=== PATIENT | female | born 2000 | race Hispanic/Latino ===

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

== ENCOUNTER 2019-03-29 13:02 | Emergency (ER) | payer SELFPAY ==
[2019-03-29 13:39] LABS: Absolute Lymphocytes (CBC) 1.6 K/uL (0.7-4.9); Absolute Monocytes 0.7 K/uL (0.1-1.3); Absolute Neutrophil 15.3 K/uL (1.8-8.0); Basophils % 0.3 % (0-1.3); Eosinophils % 0.1 % (0-4.4); Hematocrit 42.6 % (36.0-45.0); Lymphocytes % 8.9 % (15.3-44.8); RBC Red Blood Cell Count 5.41 M/uL (3.86-4.86)
[2019-03-29] MEDS ORDERED: NA CHLORIDE 0.9% 1,000 ML ONE ×2 (13:46→14:06)
[2019-03-29] MEDS ORDERED: ONDANSETRON 4 MG/2 ML VIAL ONE ×2 (13:46→15:41)
[2019-03-29 14:00] LABS: ALT/SGPT 22 U/L (12-78); AST/SGOT 14 U/L (15-37); Albumin 3.9 g/dL (3.4-5.0); Alkaline Phosphatase 118 U/L (45-117); BUN Blood Urea Nitrogen 15 mg/dL (7-18); Bicarbonate 22 mmol/L (21-32); Bilirubin Direct < 0.1 mg/dL (0-0.2); Bilirubin Total 0.3 mg/dL (0.2-1.0); Glucose Level 123 mg/dL (74-106); Lipase 129 U/L (73-393); Potassium 3.5 mmol/L (3.5-5.1); Protein, Total 9.1 g/dL (6.4-8.2); Sodium Level 140 mmol/L (136-145)
[2019-03-29 14:11] LABS: Blood Morphology Comment NOT SEEN (NOT SEEN); Platelet Estimate INCR; Urine White Blood Cell Casts OK
--- NOTE | 2019-03-29 15:01 | EDPHYS ---
Physician Documentation [facility] Name: Lindsay Hidalgo Age: 18 yrs Sex: Female : 2000 Arrival Date: 03/29/2019 Time: 13:04 Bed 8 Private MD: ED Physician Brian Coffman HPI: 03/29 13:36 This 18 yrs old Female presents to ER via Ambulatory with complaints of jake Vomiting, Hyperventilation. 13:36 The patient presents to the emergency department with nausea, vomiting. Onset: The jake symptoms/episode began/occurred 2 day(s) ago. Possible causes: unknown. The symptoms are aggravated by movement, food , The symptoms are alleviated by nothing. remaining still. Associated signs and symptoms: Pertinent positives: nausea, vomiting. Severity of symptoms: At their worst the symptoms were mild in the emergency department the symptoms are unchanged. The patient has not experienced similar symptoms in the past. 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 - Social history:: Smoking status: Patient/guardian denies using tobacco, Patient uses street drugs, marijuana, daily. - Ebola Screening: : Patient denies exposure to infectious person Patient denies travel to an Ebola-affected area in the 21 days before illness onset. - Family history:: not pertinent. ROS: 13:36 Constitutional: Negative for fever, chills, and weight loss, Eyes: Negative for injury, jake pain, redness, and discharge, ENT: Negative for injury, pain, and discharge, Neck: Negative for injury, pain, and swelling, Cardiovascular: Negative for chest pain, palpitations, and edema, Respiratory: Negative for shortness of breath, cough, wheezing, and pleuritic chest pain, Back: Negative for injury and pain, : Negative for injury, bleeding, discharge, and swelling, MS/Extremity: Negative for injury and deformity, Skin: Negative for injury, rash, and discoloration, Neuro: Negative for headache, weakness, numbness, tingling, and seizure, Psych: Negative for depression, anxiety, suicide ideation, homicidal ideation, and hallucinations, Allergy/Immunology: Negative for hives, rash, and allergies, Endocrine: Negative for neck swelling, polydipsia, polyuria, polyphagia, and marked weight changes, Hematologic/Lymphatic: Negative for swollen nodes, abnormal bleeding, and unusual bruising. 13:36 Abdomen/GI: Positive for abdominal pain, nausea and vomiting. Exam: 13:36 Constitutional: This is a well developed, well nourished patient who is awake, alert, jake and in no acute distress. Head/Face: Normocephalic, atraumatic. Eyes: Pupils equal round and reactive to light, extra-ocular motions intact. Lids and lashes normal. Conjunctiva and sclera are non-icteric and not injected. Cornea within normal limits. Periorbital areas with no swelling, redness, or edema. ENT: Nares patent. No nasal discharge, no septal abnormalities noted. Tympanic membranes are normal and external auditory canals are clear. Oropharynx with no redness, swelling, or masses, exudates, or evidence of obstruction, uvula midline. Mucous membranes moist. Neck: Trachea midline, no thyromegaly or masses palpated, and no cervical lymphadenopathy. Supple, full range of motion without nuchal rigidity, or vertebral point tenderness. No Meningismus. Chest/axilla: Normal chest wall appearance and motion. Nontender with no deformity. No lesions are appreciated. Cardiovascular: Regular rate and rhythm with a normal S1 and S2. No gallops, murmurs, or rubs. Normal PMI, no JVD. No pulse deficits. Respiratory: Lungs have equal breath sounds bilaterally, clear to auscultation and percussion. No rales, rhonchi or wheezes noted. No increased work of breathing, no retractions or nasal flaring. Abdomen/GI: Soft, non-tender, with normal bowel sounds. No distension or tympany. No guarding or rebound. No evidence of tenderness throughout. Back: No spinal tenderness. No costovertebral tenderness. Full range of motion. Skin: Warm, dry with normal turgor. Normal color with no rashes, no lesions, and no evidence of cellulitis. MS/ Extremity: Pulses equal, no cyanosis. Neurovascular intact. Full, normal range of motion. Neuro: Awake and alert, GCS 15, oriented to person, place, time, and situation. Cranial nerves II-XII grossly intact. Motor strength 5/5 in all extremities. Sensory grossly intact. Cerebellar exam normal. Normal gait. Psych: Awake, alert, with orientation to person, place and time. Behavior, mood, and affect are within normal limits. 13:50 Musculoskeletal/extremity: DVT Exam: No signs of deep vein thrombosis. no pain, no jake swelling, no tenderness, negative Homans' sign noted on exam, no appreciated bluish discoloration, no erythema, no increased warmth. 15:38 Abdomen/GI: Inspection: abdomen appears normal, Bowel sounds: normal, Palpation: [facility] abdomen is soft and non-tender, nontender, Liver: no appreciated palpable abnormalities, Hernia: not appreciated. Vital Signs: 13:08 BP 154 / 88; Pulse 110; Resp 30; Temp 97.2(TE); Pulse Ox 100% ; Weight 99.79 kg; Height ss 5 ft. 0 in. (152.40 cm); Pain 8/10; 13:43 Pulse 98; Resp 20; Pulse Ox 97% ; sv 13:57 BP 116 / 46; Pulse 89; Resp 20; Pulse Ox 100% on R/A; sv 15:30 Temp 98.0(O); ss 13:08 Body Mass Index 42.97 (99.79 kg, 152.40 cm) ss MDM: 13:13 Patient medically screened. [facility] 13:39 Data reviewed: vital signs, nurses notes, lab test result(s), EKG. [facility] 03/29 13:18 Order name: Basic Metabolic Panel; Complete Time: 14:20 03/29 13:18 Order name: CBC with Diff; Complete Time: 14:20 03/29 13:18 Order name: Creatinine for Radiology; Complete Time: 14:20 03/29 13:18 Order name: Hepatic Function; Complete Time: 14:20 03/29 13:18 Order name: Lipase; Complete Time: 14:20 03/29 13:36 Order name: Urine Culture [facility] 03/29 13:44 Order name: CBC Smear Scan; Complete Time: 14:20 EDTN 03/29 15:05 Order name: Urine Dipstick--Ancillary (enter results) 03/29 15:05 Order name: Urine --Ancillary (enter results) 03/29 15:06 Order name: Urine Dipstick-Ancillary; Complete Time: 15:39 EDMS 03/29 15:06 Order name: Urine --Ancillary; Complete Time: 15:39 EDMS 03/29 13:18 Order name: IV Saline Lock; Complete Time: 13:35 sv 03/29 13:18 Order name: Labs collected and sent; Complete Time: 13:35 sv 03/29 13:36 Order name: Urine Dipstick-Ancillary (obtain specimen); Complete Time: 14:51 jake 03/29 13:36 Order name: Urine Test (obtain specimen); Complete Time: 14:51 [facility] Administered Medications: 13:34 Drug: NS 0.9% 1000 ml Route: IV; Rate: 1000 ml; Site: left antecubital; sv 14:30 Follow up: Response: No adverse reaction; IV Status: Completed infusion; IV Intake: sv 1000ml 13:35 Drug: Zofran 4 mg Route: IVP; Site: left antecubital; sv 14:00 Follow up: Response: No adverse reaction; Nausea is decreased sv 13:57 Drug: NS 0.9% 1000 ml Route: IV; Rate: 1 bolus; Site: left antecubital; sv 15:00 Follow up: Response: No adverse reaction; IV Status: Completed infusion; IV Intake: sv 1000ml 15:21 Not Given (given per pharmacy protocol): Rocephin - (cefTRIAXone) 1 grams IVPB once ss over 30 mins; (mix in 50 mL NS) 15:21 Drug: Rocephin 1 grams Route: IV; Rate: calculated rate; Site: left antecubital; ss 15:30 Follow up: IV Status: Completed infusion ss 15:30 Drug: Zofran 4 mg Route: IVP; Site: left antecubital; ss 15:56 Follow up: Response: No adverse reaction; Marked relief of symptoms; Nausea is decreasedsv 15:55 Not Given (pt not nauseated at this time, zofran worked): Phenergan 12.5 mg IVP once sv Disposition: 03/29/19 15:01 Discharged to Home. Impression: Vomiting, Hyperventilation, Elevated white blood cell count, Urinary tract infection, site not specified. - Condition is Stable. - Discharge Instructions: Hyperventilation, Nausea and Vomiting, Adult, Nausea and Vomiting, Adult, [id number]. - Prescriptions for Bentyl 20 mg Oral Tablet - take 1 tablet by ORAL route every 6 hours As needed; 20 tablet. Pepcid 20 mg Oral Tablet - take 1 tablet by ORAL route every 12 hours for 10 days; 20 tablet. Zofran 4 mg Oral Tablet - take 1 tablet by ORAL route every 12 hours As needed; 20 tablet. promethazine 25 mg Oral Tablet - take 1 tablet by ORAL route every 6 hours As needed; 20 tablet. Cipro 500 mg Oral Tablet - take 1 tablet by ORAL route every 12 hours for 7 days; 14 tablet. - Medication Reconciliation Form, Thank You Letter, Antibiotic Education, Prescription Opioid Use form. - Family Work Release (03/29/19 16:07). sv - Follow up: Private Physician; When: 2 - 3 days; Reason: Recheck today's complaints, Continuance of care, Re-evaluation by your physician. - Problem is new. - Symptoms have improved. Signatures: Dispatcher [employer] Natty Hess RN RN sv Anderson, Corey, MD MD cha Smirch, Shelby, RN RN ss Corrections: (The following items were deleted from the chart) 15:58 15:01 03/29/2019 15:01 Discharged to Home. Impression: Vomiting; Hyperventilation; sv Elevated white blood cell count; Urinary tract infection, site not specified. Condition is Stable. Discharge Instructions: Nausea and Vomiting, Adult, Nausea and Vomiting, Adult, [id number], Hyperventilation. Prescriptions for Bentyl 20 mg Oral Tablet - take 1 tablet by ORAL route every 6 hours As needed; 20 tablet, Pepcid 20 mg Oral Tablet - take 1 tablet by ORAL route every 12 hours for 10 days; 20 tablet, Zofran 4 mg Oral Tablet - take 1 tablet by ORAL route every 12 hours As needed; 20 tablet, promethazine 25 mg Oral Tablet - take 1 tablet by ORAL route every 6 hours As needed; 20 tablet. and Forms are Medication Reconciliation Form, Thank You Letter, Antibiotic Education, Prescription Opioid Use. Follow up: Private Physician; When: 2 - 3 days; Reason: Recheck today's complaints, Continuance of care, Re-evaluation by your physician. Problem is new. Symptoms have improved. jake
--- NOTE | 2019-03-29 15:01 | ER ---
Nurse's Notes [facility] Name: Lindsay Hidalgo Age: 18 yrs Sex: Female : 2000 Arrival Date: 03/29/2019 Time: 13:04 Bed 8 Private MD: Diagnosis: Vomiting;Hyperventilation;Elevated white blood cell count;Urinary tract infection, site not specified Presentation: 03/29 13:05 Presenting complaint: Patient states: "I woke up this morning at 9, I threw up twice ss and I've been hyperventilating.". Transition of care: patient was not received from another setting of care. Onset of symptoms was March 29, 2019. Risk Assessment: Do you want to hurt yourself or someone else? Patient reports no desire to harm self or others. Initial Sepsis Screen: Does the patient meet any 2 criteria? RR > 20 per min. HR > 90 bpm. Yes Does the patient have a suspected source of infection? No. Patient's initial sepsis screen is negative. Care prior to arrival: None. 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 - Social history:: Smoking status: Patient/guardian denies using tobacco, Patient uses street drugs, marijuana, daily. - Ebola Screening: : Patient denies exposure to infectious person Patient denies travel to an Ebola-affected area in the 21 days before illness onset. - Family history:: not pertinent. Screenin:20 Abuse screen: Denies threats or abuse. Denies injuries from another. Nutritional sv screening: No deficits noted. Tuberculosis screening: No symptoms or risk factors identified. Fall Risk None identified. Assessment: 13:15 General: Appears in no apparent distress. uncomfortable, well developed, Behavior is sv cooperative, anxious. Pain: Denies pain. Neuro: Level of Consciousness is awake, alert, obeys commands, Oriented to person, place, time, situation, Moves all extremities. Full function Gait is steady, Speech is normal. Cardiovascular: Patient's skin is warm and dry. Pulses are 3+ in right radial artery and left radial artery. Respiratory: Airway is patent Respiratory effort is shallow, Respiratory pattern is symmetrical, hyperventilation Breath sounds are clear bilaterally. GI: Abdomen is obese, Pt is actively vomiting bile, Reports nausea, vomiting. Derm: Skin is pink, warm \\T\\ dry. 13:57 Reassessment: Patient appears in no apparent distress at this time. No changes from sv previously documented assessment. Patient and/or family updated on plan of care and expected duration. Pain level reassessed. Patient is alert, oriented x 3, equal unlabored respirations, skin warm/dry/pink. 15:10 Reassessment: Patient appears in no apparent distress at this time. No changes from sv previously documented assessment. Patient and/or family updated on plan of care and expected duration. Pain level reassessed. Patient is alert, oriented x 3, equal unlabored respirations, skin warm/dry/pink. 15:25 Reassessment: Pt reports that her nausea has come back. Dr. Coffman notified. Juan David ordered. 15:57 Reassessment: Patient appears in no apparent distress at this time. Patient and/or sv family updated on plan of care and expected duration. Pain level reassessed. Patient is alert, oriented x 3, equal unlabored respirations, skin warm/dry/pink. Patient states feeling better. Patient states symptoms have improved. Vital Signs: 13:08 BP 154 / 88; Pulse 110; Resp 30; Temp 97.2(TE); Pulse Ox 100% ; Weight 99.79 kg; Height 5 ft. 0 in. (152.40 cm); Pain 8/10; 13:43 Pulse 98; Resp 20; Pulse Ox 97% ; sv 13:57 BP 116 / 46; Pulse 89; Resp 20; Pulse Ox 100% on R/A; sv 15:30 Temp 98.0(O); ss 13:08 Body Mass Index 42.97 (99.79 kg, 152.40 cm) ED Course: 13:04 Patient arrived in ED. tw3 13:07 Triage completed. 13:08 Arm band placed on right wrist. 13:10 Natty Collado RN is Primary Nurse. 13:13 Brian Coffman MD is Attending Physician. [facility] 13:20 Patient has correct armband on for positive identification. Placed in gown. Bed in low sv position. Call light in reach. Adult w/ patient. Pulse ox on. NIBP on. Door closed. Head of bed elevated. 13:20 Initial lab(s) drawn, by me, sent to lab. Inserted saline lock: 20 gauge in left sv antecubital area, using aseptic technique. Blood collected. Flushed left antecubital with 5 ml normal saline. 13:45 CBC Smear Scan Sent. sv 15:10 Urine --Ancillary (enter results) Sent. sv 15:10 Urine Dipstick--Ancillary (enter results) Sent. sv 15:56 No provider procedures requiring assistance completed. IV discontinued, intact, sv bleeding controlled, No redness/swelling at site. Pressure dressing applied. Administered Medications: 13:34 Drug: NS 0.9% 1000 ml Route: IV; Rate: 1000 ml; Site: left antecubital; sv 14:30 Follow up: Response: No adverse reaction; IV Status: Completed infusion; IV Intake: sv 1000ml 13:35 Drug: Zofran 4 mg Route: IVP; Site: left antecubital; sv 14:00 Follow up: Response: No adverse reaction; Nausea is decreased sv 13:57 Drug: NS 0.9% 1000 ml Route: IV; Rate: 1 bolus; Site: left antecubital; sv 15:00 Follow up: Response: No adverse reaction; IV Status: Completed infusion; IV Intake: sv 1000ml 15:21 Not Given (given per pharmacy protocol): Rocephin - (cefTRIAXone) 1 grams IVPB once ss over 30 mins; (mix in 50 mL NS) 15:21 Drug: Rocephin 1 grams Route: IV; Rate: calculated rate; Site: left antecubital; ss 15:30 Follow up: IV Status: Completed infusion ss 15:30 Drug: Zofran 4 mg Route: IVP; Site: left antecubital; ss 15:56 Follow up: Response: No adverse reaction; Marked relief of symptoms; Nausea is decreasedsv 15:55 Not Given (pt not nauseated at this time, zofran worked): Phenergan 12.5 mg IVP once sv Intake: 14:30 IV: 1000ml; Total: 1000ml. sv 15:00 IV: 1000ml; Total: 2000ml. sv Output: 13:37 Gastric: 400ml (Emesis); Total: 400ml. sv Outcome: 15:01 Discharge ordered by . jake 15:56 Discharged to home ambulatory, with family. sv 15:56 Condition: stable 15:56 Discharge instructions given to patient, Instructed on discharge instructions, follow up and referral plans. medication usage, Demonstrated understanding of instructions, follow-up care, medications, Prescriptions given X x5 15:58 Patient left the ED. sv Addendum: 04/02/2019 09:07 Addendum: Culture Results: Positive urine culture. No further action required. Bacteria h b sensitive to prescribed antibiotic. Signatures: Natty Collado, RN RN Brian Montejo MD MD cha Smirch, Shelby, RN RN Divya Estrada, RN RN Penelope Tatum tw3
[2019-03-29] MEDS ORDERED: CEFTRIAXONE/SWI 1gm 1 GM/10 ML SYR ONE (15:30)
[2019-03-29 15:32] LABS: Urine Blood NEGATIVE (NEG); Urine Glucose NEGATIVE (NEG); Urine Protein TRACE (NEG); Urine Specific Gravity 1.015 (1.005-1.030)
== END 2019-03-29 15:58 | disposition home or self-care (01) ==
LOC: ER 13:02
DX: R11.10 Vomiting, unspecified (principal); R06.4 Hyperventilation; N39.0 Urinary tract infection, site not specified; D72.829 Elevated white blood cell count, unspecified
CPT/HCPCS: 36415; 80048; 80076; 81003; 81025; 83690; 85025; 87077; 87086; 87088; 87186; 96361; 96374; 96375; 99284; J0696; J2405; J7030

== ENCOUNTER 2019-04-25 07:28 | Emergency (ER) | payer SELFPAY ==
[2019-04-25 08:13] LABS: Absolute Lymphocytes (CBC) 1.9 K/uL (0.7-4.9); Basophils % 0.8 % (0-1.3); Eosinophils % 0.8 % (0-4.4); Hematocrit 38.6 % (36.0-45.0); Lymphocytes % 19.7 % (15.3-44.8); MPV 6.8 fL (7.6-11.3); Monocytes % 6.4 % (3.3-12.3)
[2019-04-25 08:42] LABS: ALT/SGPT 19 U/L (12-78); AST/SGOT 13 U/L (15-37); Albumin 3.6 g/dL (3.4-5.0); Alkaline Phosphatase 103 U/L (45-117); BUN Blood Urea Nitrogen 13 mg/dL (7-18); Bicarbonate 26 mmol/L (21-32); Bilirubin Direct < 0.1 mg/dL (0-0.2); Bilirubin Total 0.4 mg/dL (0.2-1.0); Glucose Level 93 mg/dL (74-106); Lipase 142 U/L (73-393); Potassium 3.7 mmol/L (3.5-5.1); Protein, Total 8.2 g/dL (6.4-8.2); Sodium Level 140 mmol/L (136-145)
[2019-04-25] MEDS ORDERED: KETOROLAC 30 MG/ML INJ ONE (08:45)
[2019-04-25] MEDS ORDERED: NA CHLORIDE 0.9% 1,000 ML ONE (08:46)
[2019-04-25] MEDS ORDERED: ONDANSETRON 4 MG/2 ML VIAL ONE (08:46)
[2019-04-25 10:03] LABS: Urine Blood NEGATIVE (NEG); Urine Glucose NEGATIVE (NEG); Urine Protein 1+ (NEG)
--- NOTE | 2019-04-25 10:29 | RAD REPORT ---
EXAM DESCRIPTION: CT - Abdomen Pelvis W Contrast - 04/25/2019 10:04 am CLINICAL HISTORY: Abdominal pain. COMPARISON: January 2018 TECHNIQUE: Computed axial tomography of the abdomen and pelvis was obtained. 100 cc Isovue-300 is ad ministered intravenously. Oral contrast was given. All CT scans are performed using dose optimization technique as appropriate and may include automated exposure control or mA/KV adjustment according to patient size. FINDINGS: 3 centimeter enhancing lesion posterior segment right lobe liver unchanged from the prior exam Spleen, pancreas, adrenals and kidneys appear unremarkable. The appendix is normal caliber. There is no evidence of diverticulitis The wall of the left colon appears mildly thickened IMPRESSION: Wall of the left colon appears mildly thickened. This could either be secondary to a mi ld colitis or incomplete distention 3 centimeter hepatic lesion unchanged from January 2018 may represent a hemangioma. A nonemergent ultra sound is recommended
--- NOTE | 2019-04-25 10:37 | ER ---
Nurse's Notes [facility] Name: Lindsay Hidalgo Age: 18 yrs Sex: Female : 2000 Arrival Date: 04/25/2019 Time: 07:30 Bed 15 Private MD: Diagnosis: colitis;Nausea and vomiting Presentation: 04/25 07:35 Presenting complaint: Patient states: Has had nausea and vomiting x 3 days, this rb1 morning she vomited some blood. She is able to keep water down. 07:35 Method Of Arrival: Ambulatory [facility] 07:35 Transition of care: patient was not received from another setting of care. Onset of rb1 symptoms was April 22, 2019. Risk Assessment: Do you want to hurt yourself or someone else? Patient reports no desire to harm self or others. Initial Sepsis Screen: Does the patient meet any 2 criteria? No. Patient's initial sepsis screen is negative. Does the patient have a suspected source of infection? No. Patient's initial sepsis screen is negative. Care prior to arrival: None. 07:35 Acuity: XIOMARA 3 rb1 Triage Assessment: 07:35 General: Appears in no apparent distress. comfortable, Behavior is calm, cooperative, rb1 Denies fever. Pain: Complains of pain in right lower quadrant Pain currently is 8 out of 10 on a pain scale. Neuro: Level of Consciousness is awake, alert, obeys commands, Oriented to person, place, time, situation. Cardiovascular: Capillary refill < 3 seconds is brisk in bilateral fingers. Respiratory: Airway is patent Respiratory effort is even, unlabored, Respiratory pattern is regular, symmetrical. GI: Reports nausea, vomiting. : No signs and/or symptoms were reported regarding the genitourinary system. Derm: Skin is pink, warm \T\ dry. 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 - Social history:: Smoking status: Patient/guardian denies using tobacco. - Ebola Screening: : Patient negative for fever greater than or equal to 101.5 degrees Fahrenheit, and additional compatible Ebola Virus Disease symptoms. Screenin:35 Abuse screen: Denies threats or abuse. Nutritional screening: No deficits noted. rb1 Tuberculosis screening: No symptoms or risk factors identified. Fall Risk None identified. Assessment: 07:35 General: See triage assessment. rb1 08:35 Reassessment: Patient appears in no apparent distress at this time. No changes from rb1 previously documented assessment. Friend at bedside. 09:30 Reassessment: Patient appears in no apparent distress at this time. Patient and/or rb1 family updated on plan of care and expected duration. Pain level reassessed. Patient is alert, oriented x 3, equal unlabored respirations, skin warm/dry/pink. Pt. is playing on her phone. 10:30 Reassessment: Patient appears in no apparent distress at this time. No changes from rb1 previously documented assessment. Pt. is sitting on the bed laughing and talking with friends. Vital Signs: 07:35 BP 121 / 75; Pulse 92; Resp 17; Temp 98.0(TE); Pulse Ox 100% on R/A; Weight 97.52 kg rb1 (R); Height 5 ft. 0 in. (152.40 cm) (R); Pain 8/10; 08:35 BP 113 / 79; Pulse 69; Resp 16; Temp 97.6(O); Pulse Ox 100% on R/A; Pain 0/10; rb1 09:30 BP 119 / 73; Pulse 61; Resp 17; Temp 97.9(TE); Pulse Ox 100% on R/A; Pain 0/10; rb1 10:30 BP 114 / 70; Pulse 68; Resp 18; Temp 98.0(O); Pulse Ox 100% on R/A; Pain 0/10; rb1 07:35 Body Mass Index 41.99 (97.52 kg, 152.40 cm) [facility] ED Course: 07:30 Patient arrived in ED. as 07:31 Jesus Avery MD is Attending Physician. rn 07:33 Joan Marie, JOSIAH is Primary Nurse. rb1 07:34 Krupa Montes FNP-C is [facility]. kb 07:35 Patient has correct armband on for positive identification. Bed in low position. Call rb1 light in reach. Side rails up X 1. Pulse ox on. NIBP on. Warm blanket given. 07:40 Arm band placed on right wrist. rb1 07:43 Triage completed. rb1 07:55 Missed attempt(s): 22 gauge in left antecubital area. Bleeding controlled, band aid rb1 applied, catheter tip intact. 08:36 Inserted saline lock: 22 gauge in right antecubital area, using aseptic technique. ss Blood collected. 10:04 CT completed. Patient tolerated procedure well. Patient moved back from CT. mw3 10:05 CT Abd/Pelvis - PO and IV Contrast In Process Unspecified. EDMS 11:08 No provider procedures requiring assistance completed. IV discontinued, intact, rb1 bleeding controlled, No redness/swelling at site. Pressure dressing applied. Administered Medications: 07:40 CANCELLED (Duplicate Order): TORadol 30 mg IVP once kb 08:43 Drug: NS 0.9% 1000 ml Route: IV; Rate: 1000 ml; Site: right antecubital; rb1 10:48 Follow up: IV Status: Completed infusion rb1 08:43 Drug: Zofran 4 mg Route: IVP; Site: right antecubital; rb1 09:00 Follow up: Response: No adverse reaction; Nausea is decreased rb1 08:43 Drug: TORadol - Ketorolac 15 mg Route: IVP; Site: right antecubital; rb1 09:00 Follow up: Response: No adverse reaction; Pain is decreased rb1 10:52 Drug: Flagyl 500 mg Route: PO; rb1 11:08 Follow up: Response: No adverse reaction rb1 10:52 Drug: Rocephin 1 grams Route: IV; Rate: calculated rate; Site: right antecubital; rb1 Outcome: 10:36 Discharge ordered by . kb 11:08 Discharged to home ambulatory, with friend. rb1 11:08 Condition: stable 11:08 Discharge instructions given to patient, Instructed on discharge instructions, follow up and referral plans. medication usage, Demonstrated understanding of instructions, follow-up care, medications, Prescriptions given X 3. 11:09 Patient left the ED. rb1 Signatures: Dispatcher [employer] EDMS Krupa Montes, DISHA EVANGELISTA-Freda Roth Roman, MD MD rn Smirch, Shelby, RN RN Joan Macedo RN RN rb1 Nolvia Lebron mw3
--- NOTE | 2019-04-25 10:37 | EDPHYS ---
Physician Documentation [facility] Name: Lindsay Hidalgo Age: 18 yrs Sex: Female : 2000 Arrival Date: 04/25/2019 Time: 07:30 Bed 15 Private MD: ED Physician Jesus Avery HPI: 04/25 07:50 This 18 yrs old Female presents to ER via Ambulatory with complaints of kb Vomiting. 07:50 The patient presents to the emergency department with nausea, vomiting, abdominal pain. kb Onset: The symptoms/episode began/occurred 3 day(s) ago. Possible causes: unknown. The symptoms are aggravated by nothing. The symptoms are alleviated by nothing. Associated signs and symptoms: Pertinent positives: abdominal pain, nausea, vomiting, Pertinent negatives: anorexia, belching, constipation, diarrhea, dysuria, fever, flatulence, GI bleeding, hematuria, vaginal discharge. Severity of symptoms: At their worst the symptoms were moderate in the emergency department the symptoms are unchanged. The patient has not experienced similar symptoms in the past. The patient has not recently seen a physician. Pt reports vomiting for 3 days with upper abd pain. Denies fever, diarrhea. States she is unable to tolerate any food by mouth, has been tolerating water. 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 - Social history:: Smoking status: Patient/guardian denies using tobacco. - Ebola Screening: : Patient negative for fever greater than or equal to 101.5 degrees Fahrenheit, and additional compatible Ebola Virus Disease symptoms. ROS: 07:49 Constitutional: Negative for fever, chills, and weight loss, Neck: Negative for injury, kb pain, and swelling, Cardiovascular: Negative for chest pain, palpitations, and edema, Respiratory: Negative for shortness of breath, cough, wheezing, and pleuritic chest pain, Back: Negative for injury and pain, : Negative for injury, bleeding, discharge, and swelling, MS/Extremity: Negative for injury and deformity, Skin: Negative for injury, rash, and discoloration, Neuro: Negative for headache, weakness, numbness, tingling, and seizure. 07:49 Abdomen/GI: Positive for abdominal pain, nausea and vomiting, Negative for diarrhea, constipation, abdominal cramps, abdominal distension, anorexia. Exam: 07:49 Constitutional: This is a well developed, well nourished patient who is awake, alert, kb and in no acute distress. Head/Face: Normocephalic, atraumatic. ENT: Nares patent. No nasal discharge, no septal abnormalities noted. Tympanic membranes are normal and external auditory canals are clear. Oropharynx with no redness, swelling, or masses, exudates, or evidence of obstruction, uvula midline. Mucous membranes moist. Neck: Trachea midline, no thyromegaly or masses palpated, and no cervical lymphadenopathy. Supple, full range of motion without nuchal rigidity, or vertebral point tenderness. No Meningismus. Chest/axilla: Normal chest wall appearance and motion. Nontender with no deformity. No lesions are appreciated. Cardiovascular: Regular rate and rhythm with a normal S1 and S2. No gallops, murmurs, or rubs. Normal PMI, no JVD. No pulse deficits. Respiratory: Lungs have equal breath sounds bilaterally, clear to auscultation and percussion. No rales, rhonchi or wheezes noted. No increased work of breathing, no retractions or nasal flaring. Skin: Warm, dry with normal turgor. Normal color with no rashes, no lesions, and no evidence of cellulitis. MS/ Extremity: Pulses equal, no cyanosis. Neurovascular intact. Full, normal range of motion. Neuro: Awake and alert, GCS 15, oriented to person, place, time, and situation. Cranial nerves II-XII grossly intact. Motor strength 5/5 in all extremities. Sensory grossly intact. Cerebellar exam normal. Normal gait. 07:49 Abdomen/GI: Inspection: obese Bowel sounds: normal, in all quadrants, Palpation: soft, in all quadrants, moderate abdominal tenderness, in the right lower quadrant. Vital Signs: 07:35 BP 121 / 75; Pulse 92; Resp 17; Temp 98.0(TE); Pulse Ox 100% on R/A; Weight 97.52 kg rb1 (R); Height 5 ft. 0 in. (152.40 cm) (R); Pain 8/10; 08:35 BP 113 / 79; Pulse 69; Resp 16; Temp 97.6(O); Pulse Ox 100% on R/A; Pain 0/10; rb1 09:30 BP 119 / 73; Pulse 61; Resp 17; Temp 97.9(TE); Pulse Ox 100% on R/A; Pain 0/10; rb1 10:30 BP 114 / 70; Pulse 68; Resp 18; Temp 98.0(O); Pulse Ox 100% on R/A; Pain 0/10; rb1 07:35 Body Mass Index 41.99 (97.52 kg, 152.40 cm) rb1 MDM: 07:31 Patient medically screened. rn 07:42 Data reviewed: vital signs, nurses notes. Data interpreted: Pulse oximetry: on room air kb is 100 %. Interpretation: normal. 10:35 Counseling: I had a detailed discussion with the patient and/or guardian regarding: the kb historical points, exam findings, and any diagnostic results supporting the discharge/admit diagnosis, lab results, radiology results, the need for outpatient follow up, a family practitioner, to return to the emergency department if symptoms worsen or persist or if there are any questions or concerns that arise at home. 04/25 07:40 Order name: Basic Metabolic Panel; Complete Time: 08:46 kb 04/25 07:40 Order name: CBC with Diff; Complete Time: 08:24 kb 04/25 07:40 Order name: Hepatic Function; Complete Time: 08:46 kb 04/25 07:40 Order name: Lipase; Complete Time: 08:46 kb 04/25 09:08 Order name: Urine Dipstick--Ancillary (enter results); Complete Time: 10:13 eb 04/25 09:08 Order name: Urine --Ancillary (enter results); Complete Time: 10:13 eb 04/25 07:40 Order name: IV Saline Lock; Complete Time: 08:55 kb 04/25 07:40 Order name: CT Abd/Pelvis - PO and IV Contrast; Complete Time: 10:35 kb 04/25 07:40 Order name: Labs collected and sent; Complete Time: 08:27 kb Administered Medications: 07:40 CANCELLED (Duplicate Order): TORadol 30 mg IVP once kb 08:43 Drug: NS 0.9% 1000 ml Route: IV; Rate: 1000 ml; Site: right antecubital; rb1 10:48 Follow up: IV Status: Completed infusion rb1 08:43 Drug: Zofran 4 mg Route: IVP; Site: right antecubital; rb1 09:00 Follow up: Response: No adverse reaction; Nausea is decreased rb1 08:43 Drug: TORadol - Ketorolac 15 mg Route: IVP; Site: right antecubital; rb1 09:00 Follow up: Response: No adverse reaction; Pain is decreased rb1 10:52 Drug: Flagyl 500 mg Route: PO; rb1 11:08 Follow up: Response: No adverse reaction rb1 10:52 Drug: Rocephin 1 grams Route: IV; Rate: calculated rate; Site: right antecubital; rb1 Disposition: 16:50 Co-signature as Attending Physician, Jesus Avery MD. rn Disposition: 04/25/19 10:36 Discharged to Home. Impression: colitis, Nausea and vomiting. - Condition is Stable. - Discharge Instructions: Nausea and Vomiting, Adult, [id number]. - Prescriptions for Bentyl 20 mg Oral Tablet - take 1 tablet by ORAL route every 6 hours As needed; 20 tablet. Flagyl 500 mg Oral Tablet - take 1 tablet by ORAL route every 8 hours for 7 days; 21 tablet. Zofran 4 mg Oral Tablet - take 1 tablet by ORAL route every 6 hours As needed; 20 tablet. - Medication Reconciliation Form, Thank You Letter, Antibiotic Education, Prescription Opioid Use form. - Follow up: Emergency Department; When: As needed; Reason: Worsening of condition. Follow up: Private Physician; When: 2 - 3 days; Reason: Recheck today's complaints, Continuance of care, Re-evaluation by your physician. Signatures: Dispatcher [employer] EDND Krupa Montes, FILAMENT TESTER-C FILAMENT TESTER-Jesus Faust MD MD rn Barber, Rebecca RN RN rb1 Corrections: (The following items were deleted from the chart) 07:40 07:40 TORadol 30 mg IVP once ordered. kb kb 11:09 10:36 04/25/2019 10:36 Discharged to Home. Impression: colitis; Nausea and vomiting. rb1 Condition is Stable. Forms are Medication Reconciliation Form, Thank You Letter, Antibiotic Education, Prescription Opioid Use. Follow up: Emergency Department; When: As needed; Reason: Worsening of condition. Follow up: Private Physician; When: 2 - 3 days; Reason: Recheck today's complaints, Continuance of care, Re-evaluation by your physician. kb
[2019-04-25] MEDS ORDERED: metroNIDAZOLE 500 MG TABLET ONE (11:07)
[2019-04-25] MEDS ORDERED: CEFTRIAXONE/SWI 1gm 1 GM/10 ML SYR ONE (11:08)
== END 2019-04-25 11:09 | disposition home or self-care (01) ==
LOC: ER 07:28
DX: K52.9 Noninfective gastroenteritis and colitis, unspecified (principal)
CPT/HCPCS: 36415; 74177; 80048; 80076; 81003; 81025; 83690; 85025; 96361; 96374; 96375; 99284; J0696; J2405; J7030; Q9967

== ENCOUNTER 2019-09-09 09:30 | Emergency (ER) | payer SELFPAY ==
--- OUTSIDE RECORDS SUMMARY | 2019-09-09 09:32 | XMS REPORT ---
:2000 [facility] Address [address] [place] [id number] Care Team Providers Name Role Phone Unavailable Unavailable Unavailable Problems This patient has no known problems. Allergies, Adverse Reactions, Alerts This patient has no known allergies or adverse reactions. Medications This patient has no known medications.
--- NOTE | 2019-09-09 09:52 | ER ---
Nurse's Notes [facility] Name: Lindsay Hidalgo Age: 18 yrs Sex: Female : 2000 Arrival Date: 09/09/2019 Time: 09:33 Bed 14 Private MD: None, None Diagnosis: Encounter for screening, unspecified Presentation: 09/09 09:50 Presenting complaint: Found today that her boyfriend's ex partner is HIV positive. hb Transition of care: patient was not received from another setting of care. Onset of symptoms was September 09, 2019. Risk Assessment: Do you want to hurt yourself or someone else? Patient reports no desire to harm self or others. Initial Sepsis Screen: Does the patient meet any 2 criteria? No. Patient's initial sepsis screen is negative. Does the patient have a suspected source of infection? No. Patient's initial sepsis screen is negative. Care prior to arrival: None. 09:50 Method Of Arrival: Ambulatory hb 09:50 Acuity: XIOMARA 5 hb Triage Assessment: 09:50 General: Appears in no apparent distress. Behavior is calm, cooperative. Pain: Denies hb pain. EENT: No signs and/or symptoms were reported regarding the EENT system. Neuro: Level of Consciousness is awake, alert, obeys commands, Oriented to person, place, time, situation. Cardiovascular: Capillary refill < 3 seconds Patient's skin is warm and dry. Respiratory: Airway is patent Respiratory effort is even, unlabored, Respiratory pattern is regular, symmetrical. GI: No signs and/or symptoms were reported involving the gastrointestinal system. : No signs and/or symptoms were reported regarding the genitourinary system. Derm: Skin is intact, is healthy with good turgor. Musculoskeletal: No signs and/or symptoms reported regarding the musculoskeletal system. Historical: - Allergies: 09:52 No Known Allergies; hb - Home Meds: 09:52 None [Active]; hb - PMHx: 09:52 gall bladder problems; hb - PSHx: 09:52 None; hb - Immunization history:: Adult Immunizations. - Social history:: Smoking status: Patient/guardian denies using tobacco. - Ebola Screening: : No symptoms or risks identified at this time. Screenin:54 Abuse screen: Denies threats or abuse. Denies injuries from another. Nutritional hb screening: No deficits noted. Tuberculosis screening: No symptoms or risk factors identified. Fall Risk None identified. Assessment: 09:55 General: see triage assessment . hb Vital Signs: 09:54 BP 123 / 79; Pulse 82; Resp 16; Temp 98.4; Pulse Ox 100% ; Weight 97.07 kg; Height 5 hb ft. (152.40 cm); Pain 0/10; 09:54 Body Mass Index 41.79 (97.07 kg, 152.40 cm) hb ED Course: 09:33 Patient arrived in ED. mr 09:33 None, None is Private Physician. mr 09:34 Krupa Montes [facility]-C [facility]. kb 09:34 Jesus Avery MD is Attending Physician. kb 09:46 Divya Navarro, RN is Primary Nurse. hb 09:52 Triage completed. hb 09:53 Patient has correct armband on for positive identification. hb 09:54 Arm band placed on. hb 09:55 No provider procedures requiring assistance completed. Patient did not have IV access hb during this emergency room visit. Administered Medications: No medications were administered Outcome: 09:52 Discharge ordered by MD. kb 09:55 Discharged to home ambulatory. hb 09:55 Condition: stable 09:55 Discharge instructions given to patient, Instructed on discharge instructions, follow up and referral plans. Demonstrated understanding of instructions, follow-up care. 09:56 Patient left the ED. hb Signatures: Krupa Montes FNP-C FNP-Andrews Yanet Dobbins Divya Navarro, RN RN hb Corrections: (The following items were deleted from the chart) 09:53 09:50 Acuity: XIOMARA 4 hb hb
--- NOTE | 2019-09-09 09:53 | EDPHYS ---
Physician Documentation [facility] Name: Lindsay Hidalgo Age: 18 yrs Sex: Female : 2000 Arrival Date: 09/09/2019 Time: 09:33 Bed 14 Private MD: None, None ED Physician Jesus Avery HPI: 09/09 09:55 This 18 yrs old Female presents to ER via Ambulatory with complaints of STD kb Exposure. 09:56 "We just found out my boyfriend's ex-girlfriend has HIV so I came to get tested for kb that and anything else yall can test for." Pt denies any symptoms. Reports her boyfriend's mom called him and told him the ex-girlfriend had HIV. . The patient has not experienced similar symptoms in the past. The patient has not recently seen a physician. Historical: - Allergies: 09:52 No Known Allergies; hb - Home Meds: 09:52 None [Active]; hb - PMHx: 09:52 gall bladder problems; hb - PSHx: 09:52 None; hb - Immunization history:: Adult Immunizations. - Social history:: Smoking status: Patient/guardian denies using tobacco. - Ebola Screening: : No symptoms or risks identified at this time. ROS: 09:55 Constitutional: Negative for fever, chills, and weight loss, ENT: Negative for injury, kb pain, and discharge, Neck: Negative for injury, pain, and swelling, Cardiovascular: Negative for chest pain, palpitations, and edema, Respiratory: Negative for shortness of breath, cough, wheezing, and pleuritic chest pain, Abdomen/GI: Negative for abdominal pain, nausea, vomiting, diarrhea, and constipation, Back: Negative for injury and pain, : Negative for injury, bleeding, discharge, and swelling, MS/Extremity: Negative for injury and deformity, Skin: Negative for injury, rash, and discoloration, Neuro: Negative for headache, weakness, numbness, tingling, and seizure. Exam: 09:55 Constitutional: This is a well developed, well nourished patient who is awake, alert, kb and in no acute distress. Head/Face: Normocephalic, atraumatic. ENT: Nares patent. No nasal discharge, no septal abnormalities noted. Tympanic membranes are normal and external auditory canals are clear. Oropharynx with no redness, swelling, or masses, exudates, or evidence of obstruction, uvula midline. Mucous membranes moist. Neck: Trachea midline, no thyromegaly or masses palpated, and no cervical lymphadenopathy. Supple, full range of motion without nuchal rigidity, or vertebral point tenderness. No Meningismus. Chest/axilla: Normal chest wall appearance and motion. Nontender with no deformity. No lesions are appreciated. Cardiovascular: Regular rate and rhythm with a normal S1 and S2. No gallops, murmurs, or rubs. Normal PMI, no JVD. No pulse deficits. Respiratory: Lungs have equal breath sounds bilaterally, clear to auscultation and percussion. No rales, rhonchi or wheezes noted. No increased work of breathing, no retractions or nasal flaring. Abdomen/GI: Soft, non-tender, with normal bowel sounds. No distension or tympany. No guarding or rebound. No evidence of tenderness throughout. Skin: Warm, dry with normal turgor. Normal color with no rashes, no lesions, and no evidence of cellulitis. MS/ Extremity: Pulses equal, no cyanosis. Neurovascular intact. Full, normal range of motion. Neuro: Awake and alert, GCS 15, oriented to person, place, time, and situation. Cranial nerves II-XII grossly intact. Motor strength 5/5 in all extremities. Sensory grossly intact. Cerebellar exam normal. Normal gait. Vital Signs: 09:54 BP 123 / 79; Pulse 82; Resp 16; Temp 98.4; Pulse Ox 100% ; Weight 97.07 kg; Height 5 hb ft. (152.40 cm); Pain 0/10; 09:54 Body Mass Index 41.79 (97.07 kg, 152.40 cm) hb MDM: 09:40 Patient medically screened. kb 09:50 Data reviewed: vital signs, nurses notes. Data interpreted: Pulse oximetry: on room air kb is 100 %. Interpretation: normal. Counseling: I had a detailed discussion with the patient and/or guardian regarding: the historical points, exam findings, and any diagnostic results supporting the discharge/admit diagnosis, the need for outpatient follow up, an OB/Gyne specialist, to return to the emergency department if symptoms worsen or persist or if there are any questions or concerns that arise at home. Administered Medications: No medications were administered Disposition: 09:50 Person with feared health complaint in whom no diagnosis is made. kb 10:27 Co-signature as Attending Physician, Jesus Avery MD. rn Disposition: 09/09/19 09:52 Discharged to Home. Impression: Encounter for screening, unspecified. - Condition is Stable. - Medication Reconciliation Form, Thank You Letter, Antibiotic Education, Prescription Opioid Use form. - Follow up: Emergency Department; When: As needed; Reason: Worsening of condition. Follow up: Private Physician; When: 2 - 3 days; Reason: Recheck today's complaints, Continuance of care, Re-evaluation by your physician. Signatures: Krupa Montes, TONJA-C PRIMARY TEACHER-Ckb Jesus Avery MD MD rn Baxter, Heather, RN RN hb Corrections: (The following items were deleted from the chart) 09:56 09:52 09/09/2019 09:52 Discharged to Home. Impression: Encounter for screening, hb unspecified. Condition is Stable. Forms are Medication Reconciliation Form, Thank You Letter, Antibiotic Education, Prescription Opioid Use. Follow up: Emergency Department; When: As needed; Reason: Worsening of condition. Follow up: Private Physician; When: 2 - 3 days; Reason: Recheck today's complaints, Continuance of care, Re-evaluation by your physician. kb
[2019-09-09 12:08] VITALS: BP 123/79; TEMP 98.4; O2SAT 100
== END 2019-09-09 09:56 | disposition home or self-care (01) ==
LOC: ER 09:30
DX: Z20.2 Contact with and (suspected) exposure to infections with a predominantly sexual mode of transmission (principal); Z13.9 Encounter for screening, unspecified
CPT/HCPCS: 99281

== ENCOUNTER 2020-06-10 08:00 | Emergency (ER) | payer SELFPAY ==
--- OUTSIDE RECORDS SUMMARY | 2020-06-10 08:02 | XMS REPORT | Continuity of Care Document ---
:2000 Author Organization [facility] t Address [address] [place] [address] Care Team Providers Name Role Phone Unavailable Unavailable Unavailable Problems This patient has no known problems. Allergies, Adverse Reactions, Alerts This patient has no known allergies or adverse reactions. Medications This patient has no known medications. Procedures This patient has no known procedures. Results This patient has no known results.
[2020-06-10 08:55] LABS: Absolute Lymphocytes (CBC) 2.6 K/uL (0.7-4.9); Basophils % 1.1 % (0-1.3); Hematocrit 34.3 % (36.0-45.0); Lymphocytes % 32.5 % (15.3-44.8); RBC Red Blood Cell Count 4.33 M/uL (3.86-4.86)
[2020-06-10] MEDS ORDERED: HYDROCODONE/APAP 7.5/325 MG TAB ONE (09:09)
[2020-06-10 09:14] LABS: Urine Blood 3+ (NEG); Urine Glucose NEGATIVE (NEG); Urine Protein 1+ (NEG); Urine Specific Gravity >1.030 (1.005-1.030)
[2020-06-10 09:14] LABS: Urine Specific Gravity >1.030 (1.005-1.030)
[2020-06-10 09:20] LABS: BUN Blood Urea Nitrogen 12 mg/dL (7-18); Bicarbonate 26 mmol/L (21-32); Glucose Level 103 mg/dL (74-106); Potassium 3.8 mmol/L (3.5-5.1); Sodium Level 141 mmol/L (136-145)
--- NOTE | 2020-06-10 09:24 | ER ---
Nurse's Notes [facility] Name: Lindsay Hidalgo Age: 19 yrs Sex: Female : 2000 Arrival Date: 06/10/2020 Time: 08:03 Bed 14 Private MD: Diagnosis: Abnormal uterine and vaginal bleeding, unspecified;Lower abdominal pain, unspecified Presentation: 06/10 08:13 Chief complaint: Patient states: Lower abdominal pain that began Saturday, vaginal ph bleeding w/ clots that started Sat, LMP on 05/29. Coronavirus screen: Client denies travel out of the [place] in the last 14 days. At this time, the client does not indicate any symptoms associated with coronavirus-19. Ebola Screen: No symptoms or risks identified at this time. Initial Sepsis Screen: Does the patient meet any 2 criteria? No. Patient's initial sepsis screen is negative. Does the patient have a suspected source of infection? No. Patient's initial sepsis screen is negative. Risk Assessment: Do you want to hurt yourself or someone else? Patient reports no desire to harm self or others. Onset of symptoms was June 10, 2020. 08:13 Method Of Arrival: Ambulatory ph 08:13 Acuity: XIOMARA 3 ph Historical: - Allergies: 08:27 No Known Allergies; ph - Home Meds: 08:27 None [Active]; ph - PMHx: 08:27 gall bladder problems; ph - PSHx: 08:27 None; ph - Immunization history:: Adult Immunizations unknown. - Social history:: Smoking status: Patient reports the use of cigarette tobacco products, denies chronic smoking, but will smoke occasionally. Screenin:27 Abuse screen: Denies threats or abuse. Denies injuries from another. Nutritional ph screening: No deficits noted. Tuberculosis screening: No symptoms or risk factors identified. Fall Risk None identified. Assessment: 08:28 General: Appears in no apparent distress. comfortable, well groomed, Behavior is calm, ph cooperative, appropriate for age, Denies fever, feeling ill. Pain: Complains of pain in left lower quadrant and right lower quadrant and suprapubic area. Neuro: Level of Consciousness is awake, alert, obeys commands, Oriented to person, place, time, situation. Cardiovascular: Capillary refill < 3 seconds in bilateral Patient's skin is warm and dry. Respiratory: Airway is patent Respiratory effort is even, unlabored. GI: Abdomen is round non-distended, Reports lower abdominal pain, Patient currently denies diarrhea, nausea, vomiting. : Reports pain in suprapubic area vaginal bleeding that is with clots, heavy flow. Derm: Skin is intact, is healthy with good turgor, Skin is pink, warm \T\ dry. 09:30 Reassessment: Patient appears in no apparent distress at this time. Patient and/or ph family updated on plan of care and expected duration. Pain level reassessed. Patient is alert, oriented x 3, equal unlabored respirations, skin warm/dry/pink. Vital Signs: 08:13 BP 117 / 76; Pulse 77; Resp 18; Temp 97.7; Pulse Ox 100% on R/A; Weight 87.54 kg; ph Height 5 ft. 0 in. (152.40 cm); 09:30 BP 115 / 68; Pulse 71; Resp 18; Temp 98.0; Pulse Ox 100% on R/A; ph 08:13 Body Mass Index 37.69 (87.54 kg, 152.40 cm) ph ED Course: 08:03 Patient arrived in ED. mr 08:04 Simon Krupa[facility] kb 08:05 Daniel Pickens MD is Attending Physician. kb 08:07 Eva Barillas, RN is Primary Nurse. ph 08:27 Triage completed. ph 08:28 Arm band placed on Patient placed in an exam room, on a stretcher. ph 08:28 Patient has correct armband on for positive identification. Placed in gown. Bed in low ph position. Call light in reach. Side rails up X 1. Pulse ox on. NIBP on. Door closed. Noise minimized. Warm blanket given. 09:20 US Transvaginal Study (Probe) In Process Unspecified. EDMS 09:45 No provider procedures requiring assistance completed. Patient did not have IV access ph during this emergency room visit. Administered Medications: 09:00 Drug: [place] (7.5 mg-325 mg) 1 tabs Route: PO; ph 09:35 Follow up: Response: No adverse reaction; Pain is decreased; RASS: Alert and Calm (0) ph Outcome: 09:23 Discharge ordered by . kb 09:48 Patient left the ED. ph 09:48 Discharged to home ambulatory. ph 09:48 Condition: good 09:48 Discharge instructions given to patient, Instructed on discharge instructions, follow up and referral plans. medication usage, Demonstrated understanding of instructions, follow-up care, medications, Prescriptions given X 1. Signatures: Dispatcher [employer] Krupa Gonzales, DISHA EVANGELISTA-Yanet Malcolm Patricia RN RN ph
--- NOTE | 2020-06-10 09:24 | EDPHYS ---
Physician Documentation [facility] Name: Lindsay Hidalgo Age: 19 yrs Sex: Female : 2000 Arrival Date: 06/10/2020 Time: 08:03 Bed 14 Private MD: ED Physician Daniel Pickens HPI: 06/10 08:15 This 19 yrs old Female presents to ER via Unassigned with complaints of kb Vaginal Bleeding. 08:15 The patient presents with vaginal bleeding that is moderate, with clots. Onset: The kb symptoms/episode began/occurred 4 day(s) ago. Onset: The symptoms/episode began/occurred and became worse this morning. Modifying factors: The symptoms are alleviated by nothing, the symptoms are aggravated by nothing. Associated signs and symptoms: Pertinent positives: cramping, vaginal bleeding, Pertinent negatives: constipation, diarrhea, dyspareunia, dysuria, fever, hematuria, nausea, urinary frequency, vaginal discharge, vomiting. Severity of symptoms: At their worst the symptoms were moderate, in the emergency department the symptoms are unchanged. The patient has not experienced similar symptoms in the past. The patient has not recently seen a physician. Pt reports lower abd pain that started on Saturday and vaginal bleeding that started Saturday. Reports pain is worse this morning and she is passing a lot of clots. Historical: - Allergies: 08: No Known Allergies; ph - Home Meds: : None [Active]; ph - PMHx: : gall bladder problems; ph - PSHx: : None; ph - Immunization history:: Adult Immunizations unknown. - Social history:: Smoking status: Patient reports the use of cigarette tobacco products, denies chronic smoking, but will smoke occasionally. ROS: 08:14 Constitutional: Negative for fever, chills, and weight loss, Cardiovascular: Negative kb for chest pain, palpitations, and edema, Respiratory: Negative for shortness of breath, cough, wheezing, and pleuritic chest pain, Back: Negative for injury and pain, MS/Extremity: Negative for injury and deformity, Skin: Negative for injury, rash, and discoloration, Neuro: Negative for headache, weakness, numbness, tingling, and seizure. 08:14 Abdomen/GI: Positive for abdominal pain, abdominal cramps, Negative for nausea, vomiting, and diarrhea, constipation, abdominal distension, anorexia. 08:14 : Positive for vaginal bleeding. Exam: 08:14 Constitutional: This is a well developed, well nourished patient who is awake, alert, kb and in no acute distress. Head/Face: Normocephalic, atraumatic. Neck: Trachea midline, no thyromegaly or masses palpated, and no cervical lymphadenopathy. Supple, full range of motion without nuchal rigidity, or vertebral point tenderness. No Meningismus. Chest/axilla: Normal chest wall appearance and motion. Nontender with no deformity. No lesions are appreciated. Cardiovascular: Regular rate and rhythm with a normal S1 and S2. No gallops, murmurs, or rubs. Normal PMI, no JVD. No pulse deficits. Respiratory: Lungs have equal breath sounds bilaterally, clear to auscultation and percussion. No rales, rhonchi or wheezes noted. No increased work of breathing, no retractions or nasal flaring. Back: No spinal tenderness. No costovertebral tenderness. Full range of motion. Skin: Warm, dry with normal turgor. Normal color with no rashes, no lesions, and no evidence of cellulitis. MS/ Extremity: Pulses equal, no cyanosis. Neurovascular intact. Full, normal range of motion. Neuro: Awake and alert, GCS 15, oriented to person, place, time, and situation. Cranial nerves II-XII grossly intact. Motor strength 5/5 in all extremities. Sensory grossly intact. Cerebellar exam normal. Normal gait. 08:14 Abdomen/GI: Inspection: abdomen appears normal, Bowel sounds: normal, in all quadrants, Palpation: soft, in all quadrants, mild abdominal tenderness, moderate abdominal tenderness, in the suprapubic area, right lower quadrant and left lower quadrant. Vital Signs: 08:13 BP 117 / 76; Pulse 77; Resp 18; Temp 97.7; Pulse Ox 100% on R/A; Weight 87.54 kg; ph Height 5 ft. 0 in. (152.40 cm); 09:30 BP 115 / 68; Pulse 71; Resp 18; Temp 98.0; Pulse Ox 100% on R/A; ph 08:13 Body Mass Index 37.69 (87.54 kg, 152.40 cm) ph MDM: 08:06 Patient medically screened. kb 08:14 Data reviewed: vital signs, nurses notes. Data interpreted: Pulse oximetry: on room air kb is 100 %. Interpretation: normal. 08:48 ED course: Labs drawn and sent . kb 09:22 Counseling: I had a detailed discussion with the patient and/or guardian regarding: the kb historical points, exam findings, and any diagnostic results supporting the discharge/admit diagnosis, lab results, radiology results, the need for outpatient follow up, an OB/Gyne specialist, to return to the emergency department if symptoms worsen or persist or if there are any questions or concerns that arise at home. 06/10 08:35 Order name: CBC with Diff; Complete Time: 08:59 kb 06/10 08:35 Order name: Basic Metabolic Panel; Complete Time: 09:21 kb 06/10 08:35 Order name: US Transvaginal Study (Probe); Complete Time: 09:36 kb 06/10 08:35 Order name: Urine Dipstick--Ancillary (enter results); Complete Time: 09:20 kb 06/10 08:36 Order name: Test Urine - POC kb 06/10 08:36 Order name: Urine --Ancillary; Complete Time: 09:20 EDMS 06/10 08:10 Order name: Urine Test (obtain specimen); Complete Time: 08:28 kb 06/10 08:10 Order name: Urine Dipstick-Ancillary (obtain specimen); Complete Time: 08:28 kb Administered Medications: 09:00 Drug: [place] (7.5 mg-325 mg) 1 tabs Route: PO; ph 09:35 Follow up: Response: No adverse reaction; Pain is decreased; RASS: Alert and Calm (0) ph Disposition: 06/10/20 09:23 Discharged to Home. Impression: Abnormal uterine and vaginal bleeding, unspecified, Lower abdominal pain, unspecified. - Condition is Stable. - Discharge Instructions: Abdominal Pain, Adult, [id number], Abnormal Uterine Bleeding, [id number]. - Prescriptions for Diclofenac Sodium 75 mg Oral Tablet, Delayed Release (E.C.) - take 1 tablet by ORAL route 2 times per day As needed; 30 tablet. - Medication Reconciliation Form, Thank You Letter, Antibiotic Education, Prescription Opioid Use, Work release form form. - Follow up: Emergency Department; When: As needed; Reason: Worsening of condition. Follow up: Private Physician; When: 2 - 3 days; Reason: Recheck today's complaints, Continuance of care, Re-evaluation by your physician. Addendum: 06/13/2020 08:29 Co-signature as Attending Physician, Daniel Pickens MD I agree with the assessment and k dr plan of care. Signatures: Dispatcher [employer] EDMS Simon Krupa, RESIDENT CARE TECHNICIAN-C RESIDENT CARE TECHNICIAN-Ckb Daniel Pickens MD MD [facility] Eva Barillas RN RN ph Corrections: (The following items were deleted from the chart) 06/10 08:47 08:35 IV Saline Lock ordered. kb kb 09:48 09:23 06/10/2020 09:23 Discharged to Home. Impression: Abnormal uterine and vaginal ph bleeding, unspecified; Lower abdominal pain, unspecified. Condition is Stable. Discharge Instructions: Abdominal Pain, Adult, [id number], Abnormal Uterine Bleeding, [id number]. Prescriptions for Diclofenac Sodium 75 mg Oral Tablet, Delayed Release (E.C.) - take 1 tablet by ORAL route 2 times per day As needed; 30 tablet. and Forms are Medication Reconciliation Form, Thank You Letter, Antibiotic Education, Prescription Opioid Use. Follow up: Emergency Department; When: As needed; Reason: Worsening of condition. Follow up: Private Physician; When: 2 - 3 days; Reason: Recheck today's complaints, Continuance of care, Re-evaluation by your physician. kb
--- NOTE | 2020-06-10 09:30 | RAD REPORT ---
EXAM DESCRIPTION: US - Transvaginal Study Probe - 06/10/2020 9:19 am CLINICAL HISTORY: Vaginal bleeding/abdominal COMPARISON: none FINDINGS: The uterus measures 5 x 3 x 3cm. A fibroid is not seen. Endometrium measures 6 millimeters The ovaries are normal in size and echotexture. 15 millimeter left ovarian follicle The right and left adnexal unremarkable No significant free fluid is seen. IMPRESSION: Unremarkable pelvic ultrasound
[2020-06-10 09:53] VITALS: BP 117/76; TEMP 97.7; O2SAT 100
== END 2020-06-10 09:48 | disposition home or self-care (01) ==
LOC: ER 08:00
DX: N93.9 Abnormal uterine and vaginal bleeding, unspecified (principal); R10.30 Lower abdominal pain, unspecified
CPT/HCPCS: 36415; 76830; 80048; 81003; 81025; 85025; 99284

== ENCOUNTER 2020-11-17 19:14 | Emergency (ER) | payer SELFPAY ==
--- OUTSIDE RECORDS SUMMARY | 2020-11-17 19:15 | XMS REPORT | Continuity of Care Document ---
:2000 Author Organization [facility] t Address [address] [place] [address] Care Team Providers Name Role Phone Unavailable Unavailable Unavailable Problems This patient has no known problems. Allergies, Adverse Reactions, Alerts This patient has no known allergies or adverse reactions. Medications This patient has no known medications. Procedures This patient has no known procedures. Results This patient has no known results.
--- NOTE | 2020-11-17 22:37 | ER ---
Nurse's Notes [facility] Name: Lindsay Hidalgo Age: 20 yrs Sex: Female : 2000 Arrival Date: 11/17/2020 Time: 19:17 Bed External Waiting Private MD: Diagnosis: Presentation: 11/17 19:19 Chief complaint: Patient states: Missed edge of bed while going to sit. Hit head on ll1 corner of nightstand. Laceration noted. No LOC. Bleeding controlled. Coronavirus screen: Client denies travel out of the [place] in the last 14 days. At this time, the client does not indicate any symptoms associated with coronavirus-19. Ebola Screen: Patient denies travel to an Ebola-affected area in the 21 days before illness onset. Mechanism of Injury: The problem was sustained at home, resulted from a fall. Initial Sepsis Screen: Does the patient meet any 2 criteria? HR > 90 bpm. No. Patient's initial sepsis screen is negative. Does the patient have a suspected source of infection? Yes: Skin breakdown/wound. Risk Assessment: Do you want to hurt yourself or someone else? Patient reports no desire to harm self or others. 19:19 Method Of Arrival: Ambulatory ll1 19:19 Acuity: XIOMARA 3 ll1 Historical: - Allergies: 19:21 No Known Allergies; ll1 - PMHx: 19:21 gall bladder problems; ll1 - PSHx: 19:21 None; ll1 - Immunization history:: Last tetanus immunization: unknown, Flu vaccine status is unknown. - Social history:: Smoking status: Patient denies any tobacco usage or history of. Vital Signs: 19:19 BP 146 / 104; Pulse 110; Resp 18; Temp 98.5; Pulse Ox 100% ; Weight 87.54 kg; Height 5 ll1 ft. 1 in. (154.94 cm); Pain 9/10; 19:19 Body Mass Index 36.47 (87.54 kg, 154.94 cm) ll1 [place] Coma Score: 19:19 Eye Response: spontaneous(4). Verbal Response: oriented(5). Motor Response: obeys ll1 commands(6). Total: 15. ED Course: 19:17 Patient arrived in ED. es 19:21 Triage completed. ll1 19:21 Arm band placed on. ll1 Administered Medications: No medications were administered Outcome: 22:37 Patient left the ED. sg Signatures: Moses Maza RN RN Angella Carcamo Lynsay RN RN ll1 Corrections: (The following items were deleted from the chart) 19:22 19:19 Chief complaint: Patient states: Missed edge of bed while going to sit. Hit head ll1 on corner of nightstand. No LOC. Bleeding controlled. ll1
[2020-11-17 23:00] VITALS: BP 146/104; TEMP 98.5; O2SAT 100
== END 2020-11-17 22:37 | disposition left against medical advice (07) ==
LOC: ER 19:14
DX: Z53.21 Procedure and treatment not carried out due to patient leaving prior to being seen by health care provider (principal)
CPT/HCPCS: 99281

== ENCOUNTER 2021-08-06 17:45 | Emergency (ER) | payer SELFPAY ==
[2021-08-06 18:31] LABS: Urine Blood Negative (Negative); Urine Glucose Negative (Negative); Urine Protein 1+ (Negative)
[2021-08-06] MEDS ORDERED: BENZONATATE 100 MG CAP PO ONE (19:57)
[2021-08-06] MEDS ORDERED: ONDANSETRON 4 MG (ODT) TAB ONE (19:57)
[2021-08-06] MEDS ORDERED: ACETAMINOPHEN 500 MG TAB ONE (19:57)
--- NOTE | 2021-08-06 20:24 | EDPHYS ---
Physician Documentation [facility] Name: Lindsay Hidalgo Age: 20 yrs Sex: Female : 2000 Arrival Date: 08/06/2021 Time: 17:48 Bed 20 Private MD: ED Physician Jesus Avery HPI: 08/06 18:55 This 20 yrs old Female presents to ER via Ambulatory with complaints of Ear cp Pain, Shortness Of Breath. 18:55 The patient or guardian reports cough, that is intermittent. cp 18:55 Onset: The symptoms/episode began/occurred 1 week(s) ago. Associated signs and cp symptoms: Pertinent positives: earache, sore throat, shortness of breath, 1 episode of vomiting yesterday, Pertinent negatives: diarrhea, fever. Severity of symptoms: in the emergency department the symptoms are unchanged despite home interventions. 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 - Social history:: Smoking status: Patient denies any tobacco usage or history of. Patient uses marijuana. ROS: 19:00 Constitutional: Negative for body aches, chills, fever, poor PO intake. cp 19:00 Eyes: Negative for injury, pain, redness, and discharge. cp 19:00 ENT: Positive for sore throat. 19:00 Cardiovascular: Negative for chest pain, palpitations. 19:00 Respiratory: Positive for cough, shortness of breath, Negative for wheezing. 19:00 Abdomen/GI: Negative for abdominal pain, nausea, vomiting, and diarrhea. 19:00 Neuro: Positive for headache, Negative for altered mental status, weakness. 19:00 All other systems are negative. Exam: 19:05 Constitutional: The patient appears in no acute distress, alert, awake, non-toxic, well cp developed, well nourished. 19:05 Head/Face: Normocephalic, atraumatic. cp 19:05 Eyes: Periorbital structures: appear normal, Conjunctiva: normal, no exudate, no injection, Sclera: no appreciated abnormality, Lids and lashes: appear normal, bilaterally. 19:05 ENT: External ear(s): are unremarkable, Ear canal(s): are normal, clear, TM's: bulging, bilaterally, erythema, that is moderate, bilaterally, Nose: is normal, Mouth: Lips: moist, Oral mucosa: moist, Posterior pharynx: Airway: no evidence of obstruction, patent, Tonsils: are normal in appearance, swelling, is not appreciated, erythema, is not appreciated, exudate, is not appreciated. 19:05 Neck: ROM/movement: is normal, is supple, without pain, no range of motions limitations, no meningismus, Lymph nodes: no appreciated lymphadenopathy. 19:05 Chest/axilla: Inspection: normal, Palpation: is normal, no crepitus, no tenderness. 19:05 Cardiovascular: Rate: normal, Rhythm: regular. 19:05 Respiratory: the patient does not display signs of respiratory distress, Respirations: normal, no use of accessory muscles, no retractions, labored breathing, is not present, Breath sounds: are clear throughout, no decreased breath sounds, no stridor. 19:05 Abdomen/GI: Inspection: abdomen appears normal, Palpation: abdomen is soft and non-tender, in all quadrants. 19:05 Skin: no rash present. 19:05 Neuro: Orientation: to person, place \T\ time. Mentation: is normal, Motor: moves all fours, strength is normal, Sensation: is normal. Vital Signs: 17:56 BP 129 / 99; Pulse 82; Resp 16; Temp 98.8; Pulse Ox 100% ; Weight 86.18 kg; Height 5 vg1 ft. 0 in. (152.40 cm); Pain 8/10; 19:40 Temp 98.2; Pulse Ox 100% on R/A; dc2 19:40 BP 119 / 84; Pulse 77; Resp 18; Temp 98.2(O); Pulse Ox 99% ; Pain 6/10; dc2 17:56 Body Mass Index 37.11 (86.18 kg, 152.40 cm) vg1 MDM: 18:40 Patient medically screened. 20:22 Data reviewed: vital signs, nurses notes, lab test result(s), and as a result, I will cp discharge patient. 20:22 Differential diagnosis: bronchitis, flu, URI. Counseling: I had a detailed discussion cp with the patient and/or guardian regarding: the historical points, exam findings, and any diagnostic results supporting the discharge/admit diagnosis, lab results, to return to the emergency department if symptoms worsen or persist or if there are any questions or concerns that arise at home. 08/06 18:03 Order name: Flu; Complete Time: 20:21 vg1 08/06 18:03 Order name: Strep; Complete Time: 20:21 vg1 08/06 18:30 Order name: Urine Dipstick-Ancillary; Complete Time: 18:49 EDMS 08/06 18:31 Order name: Urine --Ancillary (enter results); Complete Time: 20:21 eb 08/06 18:49 Order name: SARS-COV-2 RT PCR; Complete Time: 20:21 EDMS 08/06 19:40 Order name: Throat Culture EDMS Administered Medications: 19:43 Drug: Zofran (Ondansetron) 4 mg Route: PO; dc2 20:12 Follow up: Response: No adverse reaction dc2 19:43 Drug: Tylenol 1000 mg Route: PO; dc2 20:11 Follow up: Response: Pain is unchanged, physician notified dc2 19:43 Drug: Tessalon Perle (benzonatate) 200 mg Route: PO; dc2 20:11 Follow up: Response: No adverse reaction dc2 Disposition Summary: 08/06/21 20:23 Discharge Ordered Location: Home cp Problem: new cp Symptoms: have improved cp Condition: Stable cp Diagnosis - Acute upper respiratory infection, unspecified cp - Otitis media in diseases classified elsewhere, bilateral cp Followup: cp - With: Private Physician - When: 2 - 3 days - Reason: Worsening of condition Discharge Instructions: - Discharge Summary Sheet cp - Otitis Media, Adult cp - Upper Respiratory Infection, Adult cp - Cool Mist Vaporizer cp Forms: - Medication Reconciliation Form cp - Thank You Letter cp - Antibiotic Education cp - Prescription Opioid Use cp - Work release form dc2 Prescriptions: - Augmentin 875-125 mg Oral Tablet - take 1 tablet by ORAL route every 12 hours for 10 days; 20 tablet; Refills: 0, cp Product Selection Permitted - Ibuprofen 800 mg Oral Tablet - take 1 tablet by ORAL route every 8 hours As needed take with food; 30 tablet; cp Refills: 0, Product Selection Permitted - Tessalon Perles 100 mg Oral Capsule - take 2 capsule by ORAL route every 8 hours As needed; 30 capsule; Refills: 0, cp Product Selection Permitted Addendum: 08/10/2021 00:06 Co-signature as Attending Physician, Jesus Avery MD I agree with the assessment and r n plan of care. Attestation: The patient's history, exam findings, diagnostics, and a summary of any interventions or procedures was reviewed in detail with Brian SAMUEL. Signatures: Dispatcher [employer] [facility] Jesus Avery MD MD rn Page, Corey, PA PA cp Garcia, Victoria RN RN vg1 Shashank, JOSIAH Rajan RN dc2 Corrections: (The following items were deleted from the chart) 08/06 18:48 18:08 CORONAVIRUS+[id number] ordered. [facility] 08/07 16:23 08/06 19:00 Neuro: Negative for altered mental status, headache, weakness, cp cp
--- NOTE | 2021-08-06 20:24 | ER ---
Nurse's Notes [facility] Name: Lindsay Hidalgo Age: 20 yrs Sex: Female : 2000 Arrival Date: 08/06/2021 Time: 17:48 Bed 20 Private MD: Diagnosis: Acute upper respiratory infection, unspecified;Otitis media in diseases classified elsewhere, bilateral Presentation: 08/06 17:56 Chief complaint: Patient states: Sore throat, DEBRA ears 'feel clogged', congestion, vg1 headache, and difficutly breathing began Saturday07/31/21 and lost taste and smell on Saturday08/04/21. States vomited yesterday. Coronavirus screen: Vaccine status: Patient reports receiving the 2nd dose of the covid vaccine. Client presents with at least one sign or symptom that may indicate coronavirus-19. Standard/surgical mask placed on the client. Ebola Screen: Patient negative for fever greater than or equal to 101.5 degrees Fahrenheit, and additional compatible Ebola Virus Disease symptoms. Initial Sepsis Screen: Does the patient meet any 2 criteria? No. Patient's initial sepsis screen is negative. Does the patient have a suspected source of infection? No. Patient's initial sepsis screen is negative. Risk Assessment: Do you want to hurt yourself or someone else? Patient reports no desire to harm self or others. Onset of symptoms was July 31, 2021. 17:56 Method Of Arrival: Ambulatory vg1 17:56 Acuity: XIOMARA 3 vg1 Triage Assessment: 18:00 General: Appears in no apparent distress. uncomfortable, Behavior is calm, cooperative. vg1 Pain: Complains of pain in chest. Respiratory: Reports cough that is dry, Onset: The symptoms/episode began/occurred 08/04/21, the patient has mild shortness of breath. 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 - Social history:: Smoking status: Patient denies any tobacco usage or history of. Patient uses marijuana. Screenin:37 Abuse screen: Denies threats or abuse. Denies injuries from another. Nutritional tc5 screening: No deficits noted. Tuberculosis screening: No symptoms or risk factors identified. Fall Risk None identified. Assessment: 18:35 Reassessment: Patient appears in no apparent distress at this time. No changes from tc5 previously documented assessment. General: Appears in no apparent distress. Behavior is calm, cooperative, appropriate for age, pt reports not feeling well for the past 3 or more days, states she has lost her taste and smell, has not been able to eat.. 19:40 Pain: Complains of pain in Head - co generalized headache. dc2 19:40 Cardiovascular: Rhythm is sinus rhythm. dc2 19:40 Neuro: No deficits noted. Respiratory: No deficits noted. Breath sounds are clear. dc2 19:40 Respiratory: Airway is patent Respiratory effort is. dc2 Vital Signs: 17:56 BP 129 / 99; Pulse 82; Resp 16; Temp 98.8; Pulse Ox 100% ; Weight 86.18 kg; Height 5 vg1 ft. 0 in. (152.40 cm); Pain 8/10; 19:40 Temp 98.2; Pulse Ox 100% on R/A; dc2 19:40 BP 119 / 84; Pulse 77; Resp 18; Temp 98.2(O); Pulse Ox 99% ; Pain 6/10; dc2 17:56 Body Mass Index 37.11 (86.18 kg, 152.40 cm) vg1 ED Course: 17:48 Patient arrived in ED. mr 18:00 Triage completed. vg1 18:00 Arm band placed on. vg1 18:10 COVID swab sent to lab. Flu and/or RSV swab sent to lab. Strep swab sent to lab. vg1 18:29 Brian Barros PA is PHCP. cp 18:29 Jesus Avery MD is Attending Physician. cp 18:34 Triny Charles, JOSIAH is Primary Nurse. tc5 19:40 Patient has correct armband on for positive identification. Bed in low position. Call dc2 light in reach. Side rails up X 1. 19:40 motor vehicle representative on. Pulse ox on. dc2 20:26 No provider procedures requiring assistance completed. Inserted Patient did not have IV dc2 access during this emergency room visit. Administered Medications: 19:43 Drug: Zofran (Ondansetron) 4 mg Route: PO; dc2 20:12 Follow up: Response: No adverse reaction dc2 19:43 Drug: Tylenol 1000 mg Route: PO; dc2 20:11 Follow up: Response: Pain is unchanged, physician notified dc2 19:43 Drug: Tessalon Perle (benzonatate) 200 mg Route: PO; dc2 20:11 Follow up: Response: No adverse reaction dc2 Outcome: 20:23 Discharge ordered by . dariela 20:25 Discharged to home ambulatory. dc2 20:25 Condition: stable 20:25 Discharge instructions given to patient, Instructed on discharge instructions. 20:48 Patient left the ED. dc2 20:55 Patient left the ED. dc2 Signatures: Yanet Dobbins Corey, PA PA cp Garcia, Victoria, RN RN vg1 Mohini Encarnacion, RN RN dc2 Triny Charles, RN RN tc5
[2021-08-06 20:52] VITALS: BP 129/99; O2SAT 100
[2021-08-06 21:02] VITALS: TEMP 98.2
== END 2021-08-06 20:55 | disposition home or self-care (01) ==
LOC: ER 17:45
DX: J06.9 Acute upper respiratory infection, unspecified (principal); H67.3 Otitis media in diseases classified elsewhere, bilateral; Z20.822 Contact with and (suspected) exposure to COVID-19
CPT/HCPCS: 81003; 81025; 87070; 87081; 87804; 99284; U0003

== ENCOUNTER 2022-01-06 09:15 | Emergency (ER) | payer OTHER, SELFPAY ==
--- OUTSIDE RECORDS SUMMARY | 2022-01-06 09:28 | XMS REPORT | Continuity of Care Document ---
:2000 Author Organization [facility] t Address [address] [place] [address] Care Team Providers Name Role Phone Geneva Shelby Primary Care Physician Geneva AGGARWAL Attending Clinician Unavailable Sebastian BERGERON C Attending Clinician Doctor Unassigned, Name Attending Clinician Unavailable William Thomas Attending Clinician WILLIAM LEE Attending Clinician Unavailable Krystal Canas DO Attending Clinician Eric Gates Attending Clinician Payers Payer Name Policy Type Policy Number Effective Date Expiration Date S ource [place] [id number] 2021 00:00:00 Problems Condition Condition Condition Status Onset Resolution Last Treating Co mments Source Name Details Category Date Date Treatment Clinician Date Supervisio Supervisio Disease Active U vinicius n of n of 3-03 ity of high-risk high-risk 00:00: Jose Maria s 00 [facility] Obesity in Obesity in Disease Active U vinicius 3-03 ity of 00:00: [place] 00 [facility] Elevated Elevated Disease Active Unive rs blood blood 3-03 ity of pressure pressure 00:00: [place] reading reading 00 Medical without without Branch diagnosis diagnosis of of hypertensi hypertensi on on No known No known Disease Unive rs active active ity of problems problems [facility] Allergies, Adverse Reactions, Alerts Allergy Allergy Status Severity Reaction(s) Onset Inactive Treating Comm ents Source Name Type Date Date Clinician NO KNOWN Drug Active Univers ALLERGIE Class ity of S [facility] Social History Social Habit Start Date Stop Date Quantity Comments Source ASSERTION 2021-11-26 [facility] 00:00:00 [facility] Exposure to Not sure [facility] SARS-CoV-2 (event) Medica l Branch Tobacco use and 2018-04-12 2018-04-12 Never used [facility] exposure 00:00:00 00:00:00 [facility] Sex Assigned At [birth year] [facility] 00:00:00 00:00:00 [facility] Smoking Status Start Date Stop Date Source Never smoker [facility] Medications Ordered Filled Start Stop Current Ordering Indication Dosage Frequency Signature Comments Components Source Medication Medication Date Date Medication? Clinician (SIG) Name Name No known No Univers medications 3-03 ity of 14:53: [place] [facility] tetanus-dip 2020- No .5mL 0.5 mL, Un last htheria 11-18 Intramuscu ity o f toxoids 05:30: 05:30 lar, ONCE, Chris as (TDVAX) 2-2 00 :00 1 dose, Medic al Lf unit/0.5 Stefanie Branch mL 11/17/20 at injection 2330, 0.5 mL Routine ibuprofen Yes [id number] 800mg Take 1 U nivers 800 mg 7-19 tablet by ity of tablet 00:00: mouth [place] 00 every 8 Medical (eight) Branch hours. ibuprofen Yes [id number] 800mg Take 1 U nivers 800 mg 7-19 tablet by ity of tablet 00:00: mouth [place] 00 every 8 Medical (eight) Branch hours. ibuprofen Yes [id number] 800mg Take 1 U nivers 800 mg 7-19 tablet by ity of tablet 00:00: mouth [place] 00 every 8 Medical (eight) Branch hours. ibuprofen 2021- No [id number] 800mg Take 1 Univers 800 mg 7-19 03-03 tablet by ity of tablet 00:00: 00:00 mouth [place] 00 :00 every 8 Medical (eight) Branch hours. ondansetron 2018-0 Yes 4mg Take 1 Univ ers 4 mg 5-18 tablet by ity of disintegrat 00:00: mouth [place] ing tablet 00 every 8 Medica l (eight) Branch hours as needed for Nausea and Vomiting (N/V). ondansetron 2018-0 Yes 4mg Take 1 Univ ers 4 mg 5-18 tablet by ity of disintegrat 00:00: mouth [place] ing tablet 00 every 8 Medica l (eight) Branch hours as needed for Nausea and Vomiting (N/V). ondansetron 2018-0 Yes 4mg Take 1 Univ ers 4 mg 5-18 tablet by ity of disintegrat 00:00: mouth [place] ing tablet 00 every 8 Medica l (eight) Branch hours as needed for Nausea and Vomiting (N/V). ondansetron 2018-0 2021- No 4mg Take 1 Uni vers 4 mg 5-18 03-03 tablet by ity of disintegrat 00:00: 00:[place] tablet [place] :00 every 8 Medica l (eight) Branch hours as needed for Nausea and Vomiting (N/V). Immunizations Ordered Filled Immunization Date Status Comments [facility] e Immunization Name Name Td 2020-11-17 Completed University of 00:00:00 [facility] Td 2020-11-17 Completed University of 00:00:00 [facility] Td 2020-11-17 Completed University of 00:00:00 [facility] Td 2020-11-17 Completed University of 00:00:00 [facility] Td 2020-11-17 Completed [place] of 00:00:00 [facility] Vital Signs Vital Name Observation Time Observation Value Comments Source Diastolic blood 2021-12-28 21:10:00 87 mm[Hg[facility] Systolic blood 2021-12-28 21:10:00 135 mm[facility]Hg[facility] Heart rate 2021-12-28 20:20:00 92 /min [facility] Body temperature 2021-12-28 20:20:00 36.5 [facility] Respiratory rate 2021-12-28 20:20:00 16 /[facility] Body height 2021-12-28 20:20:00 152.4 cm [facility] [place] [facility] Body weight 2021-12-28 20:20:00 101.606 kg [facility] [place] [facility] BMI 2021-12-28 20:20:00 43.75 kg/m2 [facility] [place] [facility] Respiratory rate 2020-11-28 21:01:00 18 /min Univ ersity of [facility] Oxygen saturation in 2020-11-28 21:01:00 100 /min [facility] Arterial blood by [facility] Pulse oximetry Branch Systolic blood 2020-11-28 21:01:00 134 mm[Hg] Univer sity of pressure [place] [facility] [place] Diastolic blood 2020-11-28 21:01:00 87 mm[Hg] Unive rsity of pressure [place] [facility] [place] Heart rate 2020-11-28 21:01:00 87 /min [facility] [place] [facility] [place] Body temperature 2020-11-28 21:01:00 37 Sophie Univ ersity of [place] [facility] [place] Body height 2020-11-28 20:49:00 152.4 cm [facility] [place] [facility] Body weight 2020-11-28 20:49:00 87.544 kg [facility] [place] [facility] BMI 2020-11-28 20:49:00 37.69 kg/m2 [facility] [place] [facility] Systolic blood 2020-11-18 03:44:00 129 mm[Hg] Univer sity of pressure [place] [facility] Diastolic blood 2020-11-18 03:44:00 79 mm[Hg] Unive rsity of pressure [place] [facility] [place] Heart rate 2020-11-18 03:44:00 89 /min [facility] [place] [facility] Body temperature 2020-11-18 03:44:00 37.83 Sophie Univ ers[facility] [place] [facility] Respiratory rate 2020-11-18 03:44:00 18 /min Univ ersity of [facility] Body height 2020-11-18 03:44:00 154.9 cm [facility] [place] [facility] Body weight 2020-11-18 03:44:00 87.544 kg [facility] [place] [facility] BMI 2020-11-18 03:44:00 36.47 kg/m2 [facility] [place] [facility] Oxygen saturation in 2020-11-18 03:44:00 99 /min University Arterial blood by [facility] Pulse oximetry Branch Procedures Procedure Date / Time Performed Performing Clinician Sour e GLUCOSE 1 HOUR POST 2021-12-28 21:28:00 Jenniffer Aggarwal Uni [facility] PRANDIAL [facility] CBC WITH DIFF 2021-12-28 21:28:00 Jenniffer Aggarwal [facility] RUBELLA SCREEN IGG 2021-12-28 21:28:00 Jenniffer Agg[facility]wal [facility] VZV ANTIBODY SCREEN 2021-12-28 21:28:00 Jenniffer Aggarwal Uni [facility] HEPATITIS B SURFACE 2021-12-28 21:28:00 Jenniffer Aggarwal Uni [facility] ANTIGEN [facility] HIV 1/2 AG-AB WITH 2021-12-28 21:28:00 Jenniffer Aggarwal [facility] REFLEX [facility] PAP SMEAR-LIQUID 2021-12-28 21:28:00 Jenn[facility] BASED[facility] Branch GALV ONLY - SYPHILIS 2021-12-28 21:28:00 [facility] HB ABO GROUPING 2021-12-28 21:17:00 Jenniffer Aggarwal [facility] POCT TEST 2021-12-28 20:22:00 Jenniffer Aggarwal [facility] POCT URINALYSIS W/O 2021-12-28 20:22:00 Jenniffer Aggarwal [facility] SPECIFIC GRAVITY [facility] ASSIGNMENT OF BENEFITS 2021-12-28 20:06:32 Doctor Unassigned, No [facility] Name Medical Branch CONSENT/REFUSAL FOR 2020-11-28 20:43:16 Doctor Unassigned, No [facility] [place] DI[facility]NOSIS AND Name Medical Branch TREATMENT NOTICE OF PRIVACY 2020-11-18 03:35:42 Doctor Unassigned, No [facility] Branch CONSENT/REFUSAL FOR 2020-11-18 03:35:30 Doctor Unassigned, No [facility] [place] DIAGNOSIS AND Name Medical Branch TREATMENT Encounters Start End Encounter Admission Attending Care Care Encounter Source Date/Time Date/Time Type Type Clinicians Facility Department ID 2022-02-08 2022-02-08 Outpatient R [facility] [id number] Univers 11:00:00 11:00:[id number] [facility] 2022-02-08 2022-02-08 Outpatient P [facility] [id number] Univers 11:00:00 11:00:[address] [facility] 2022-01-25 2022-01-25 Outpatient R SEBASTIAN, [facility] [id number] Univers 08:00:00 08:00:00 JENNIFFER [id number] ity o f [facility] 2022-01-25 2022-01-25 [facility] [id number] Univers 08:00:00 08:00:00 JENNIFFER ity o f [facility] 2021-12-29 2021-12-29 [facility] [id number] Univers 00:00:00 00:00:00 Jenniffer Bean IT SECURITY SPECIALIST [id number] ity of REGIONAL [id number] Chris as MATERNAL [id number] Med ical & CHILD [address] [place] [address] 2021-12-28 2021-12-28 Outpatient R SEBASTIAN, [facility] [id number] Univers 13:30:00 15:09:24 JENNIFFER rosey o f [facility] 2021-12-28 2021-12-28 Initial [facility] [id number] Univers 13:30:00 15:09:24 Jenniffer C IT SECURITY SPECIALIST [id number] ity of Visit REGIONAL [id number] Chris as MATERNAL [id number] [facility] ical & CHILD [address] [place] [address] 2021-12-28 2021-12-28 Joselo TORRES [id number] Univers 00:00:00 00:00:00 Only Unassigned, AZALEA [id number] ity of [place] [facility] [id number] Chris as [id number] [facility] 009 Branch 2020-11-28 2020-11-28 Emergency Alessio Lee [facility] [id number] Univers 15:00:00 16:30:00 William Lopez [id number] i ty [facility] [id number] [facility] [id number] [facility] 084 Branch 2020-11-28 2020-11-28 Emergency X Alessio LEE [facility] ERT [id number] Univers 15:00[facility] 2020-11-17 2020-11-17 Emergency Marsha Canas [facility] [id number] Univers 21:47:00 22:46:00 [facility]un[facility] Butler [id number] [id number] [facility] [id number] [address] 2020-11-17 2020-11-17 Emergency X [facility] ERT [id number] Univers 21:36:00 21:36:00 [facility] Results Test Description Test Time Test Comments Results Result Comments Source RUBELLA SCREEN (LEBRON) IGG 2021-12-29 16:46:14 Test Item Value Reference Range Interpretation Comme nts Rubella screen IgG (test code = Positive Negative [id number]) NATHANIEL (test code = NATHANIEL) Positive - Indicates the patient was exposed to Rubella through infection or vaccination.Negative - Indicates the patient could be susceptible to Rubella infection.Equivocal - A second specimen should be sent. [facility] [id number] 16:46:14 Test Item Value Reference Range Interpretation Comments VZV IgG antibody Positive Negative (test code = 64876-1) NATHANIEL (test code = NATHANIEL) Positive - Indicates the patient was exposed to VZV through infection or vaccination.Negative - Indicates the patient could be susceptible to VZV infection.Equivocal - A second specimen should be sent for testing. [facility] - [place] [id number] 15:15:42 Test Item Value Reference Range Interpretation Comments Syphilis IgG/IgM (test Non-reactive Non-reactive code = 12835-1) NATHANIEL (test code = NATHANIEL) Non-reactive - No serologic evidence of T. pallidum infection. Cannot exclude incubating or early syphilis. Submit a second specimen in 2-4 weeks if syphilis is clinically suspected. Equivocal - Further testing to follow. Reactive - Further testing to follow. Lab Interpretation (test Normal code = 80437-9) [facility]2 AG-AB WITH [id number] 11:04:29 Test Item Value Reference Range Interpretation Comments HIV Negative Negative Semi-quantitative (test code = 38516-1) NATHANIEL (test code = Non-reactive for HIV-1 NATHANIEL) antigen and HIV-1/HIV-2 antibodies. ?No laboratory evidence of HIV infection. ?Repeat in 2-4 weeks if acute HIV infection is suspected. [facility] WORK[facility], BLOOD [id number] 09:54:21 Test Item Value Reference Range Interpretation Comments ABO & RH (test code O POSITIVE Performe d at [facility] = 20) Laboratory Serv [facility] s [id number] Free: [phone] A No. [id number] IAT (test code = Negative Performed a t [facility] 1185) Laboratory Serv [facility] s [id number] Free: [phone] A No. [id number] [facility] Dallas[facility]AT[facility] B SURFACE [id number] 08:10:44 Test Item Value Reference Range Interpretation Comments HBsAg Semi-Quantitative (test code = Negative Negative 5195-3) [facility] 1 HOUR POST [id number] 06:52:15 Test Item Value Reference Range Interpretation Comments GLUC 1 HR (test code = 4762682465) 112 mg/dL 120-170 L Lab Interpretation (test code = Abnormal 41465-0) [facility] DallasCB WITH [id number] 06:06:41 Test Item Value Reference Range Interpretation Comments WBC (test code = See_Comment H [Automated 6690-2) message] The sy stem which generated this result transmitted reference range : 4.30 - 11.10 10*3/?L. The reference range was not used to interpret this result as normal/abnormal . RBC (test code = See_Comment [Automated 789-8) message] The sy stem which generated this result transmitted reference range : 3.93 - 5.25 10*6/?L. The reference range was not used to interpret this result as normal/abnormal . HGB (test code = 12.8 g/dL 11.6-15.0 718-7) HCT (test code = 39.1 % 35.7-45.2 4544-3) MCV (test code = 82.3 fL 80.6-95.5 787-2) MCH (test code = 26.9 pg 25.9-32.8 785-6) MCHC (test code = 32.7 g/dL 31.6-35.1 786-4) RDW-SD (test code = 42.7 fL 39.0-49.9 88662-8) RDW-CV (test code = 14.3 % 12.0-15.5 788-0) PLT (test code = See_Comment H [Automated 777-3) message] The sy stem which generated this result transmitted reference range : 166 - 358 10*3/ ?L. The reference r sundeep was not used to interpret this result as normal/abnormal . MPV (test code = 8.8 fL 9.5-12.9 L 23374-7) NRBC/100 WBC (test See_Comment [Automat ed code = 8650730567) message] The system which generated this result transmitted reference range : 0.0 - 10.0 /100 WBCs. The refer ence range was not u sed to interpret th is result as normal/abnormal . NRBC x10^3 (test code <0.01 See_Comment [Auto mated = [id number]) message] The s ystem which generated this result transmitted reference range : 10*3/?L. The reference range was not used to interpret this result as normal/abnormal . GRAN MAT (NEUT) % 74.1 % (test code = 770-8) IMM GRAN % (test code 0.30 % = 9450674982) LYMPH % (test code = 19.1 % 736-9) MONO % (test code = 5.6 % 5905-5) EOS % (test code = 0.3 % 713-8) BASO % (test code = 0.6 % 706-2) GRAN MAT x10^3(ANC) 8.58 10*3/uL 1.88-7.09 H (test code = 8104309669) IMM GRAN x10^3 (test 0.04 10*3/uL 0.00-0.06 code = 4982651131) LYMPH x10^3 (test code 2.21 10*3/uL 1.32-3.29 = 731-0) MONO x10^3 (test code 0.65 10*3/uL 0.33-0.92 = 742-7) EOS x10^3 (test code = 0.04 10*3/uL 0.03-0.39 711-2) BASO x10^3 (test code 0.07 10*3/uL 0.01-0.07 = 704-7) Lab Interpretation Abnormal (test code = 25918-6) [facility] URINALYSIS W/O SPECIFIC [id number] 20:23:00 Test Item Value Reference Range Interpretation Comments POCT PH U (test code = 3254) 8 mg/dl 5-8 POCT U LEUK EST (test code = trace Negative - Negative 3263) POCT U NIT (test code = 3262) neg Negative - Negative POCT U PROT (test code = 3259) trace Negative - Negative POCT U GLU (test code = 3256) neg Negative - Negative POCT U KETONE (test code = 3258) neg Negative - Negative POCT U BLD (test code = 3257) neg Negative - Negative [facility] [id number] 20:22:00 Test Item Value Reference Range Interpretation Comments POCT PREG (test code = 1605) Positive On board controls acceptable with C Yes Line (test code = 3574) POCT PREG LOT # (test code = 3572) POCT PREG TEST DATE (test code = 3576) [facility]
[2022-01-06 10:25] LABS: Urine Blood Trace-lysed (Negative); Urine Glucose Negative (Negative); Urine Protein 1+ (Negative); Urine Specific Gravity 1.025 (1.005-1.030)
[2022-01-06 10:47] LABS: Absolute Lymphocytes (CBC) 1.8 K/uL (0.7-4.9); Hematocrit 38.4 % (36.0-45.0); Lymphocytes % 24.7 % (15.3-44.8); RBC Red Blood Cell Count 4.72 M/uL (3.86-4.86)
[2022-01-06 10:52] LABS: Urine Bacteria <20 /HPF (<20); Urine Mucus 1+ /HPF (NONE SEEN); Urine RBC <5 /HPF (NONE SEEN)
[2022-01-06 11:02] LABS: Urine Specific Gravity/Preg 1.025 (1.005-1.030)
[2022-01-06 11:18] LABS: BUN Blood Urea Nitrogen 11 mg/dL (7-18); Bicarbonate 25 mmol/L (21-32); Glucose Level 91 mg/dL (74-106); HCG, Quantitative 26458 mIU/mL (1-3); Potassium 3.7 mmol/L (3.5-5.1); Sodium Level 137 mmol/L (136-145)
--- NOTE | 2022-01-06 13:33 | RAD REPORT ---
EXAM DESCRIPTION: US - Transvaginal OB - 01/06/2022 1:02 pm CLINICAL HISTORY: VAGINAL BLEEDING Pelvic pain COMPARISON: No comparisons FINDINGS: A single gestational sac is seen within the uterus. The shape of the sac is within normal limits for gestational age. Within the sac is a single pole with crown-rump length of 2 mm, cor relating to estimated gestational age of 6 weeks 0 days. Estimated date of delivery is 09/01/2022. Heart rate is 147 BPM. The placenta is not yet developed due to early gestational age. The maternal adnexa and ovaries are within normal limits. Normal Doppler blood flow was demonstrated to both ovaries. IMPRESSION: Single live early intrauterine gestation with estimated gestational age of 6 weeks 0 day s, JUDIT 09/01/2022. No unusual or unexpected finding.
--- NOTE | 2022-01-06 13:50 | ER ---
Nurse's Notes [facility] Name: Lindsay Hidalgo Age: 21 yrs Sex: Female : 2000 Arrival Date: 01/06/2022 Time: 09:16 Bed 13 Private MD: Diagnosis: Threatened Presentation: 01/06 09:33 Chief complaint: Patient states: Noticed bright red spotty blood on toilet paper this ww morning. LMP 11/14/21. Positive test 12/19/21. Dr. Stark 12/28/2021 to confirm . Coronavirus screen: Vaccine status: Patient reports receiving the 2nd dose of the covid vaccine. Client denies travel out of the [place] in the last 14 days. Ebola Screen: Patient denies travel to an Ebola-affected area in the 21 days before illness onset. Initial Sepsis Screen: Does the patient meet any 2 criteria? No. Patient's initial sepsis screen is negative. Does the patient have a suspected source of infection? No. Patient's initial sepsis screen is negative. Risk Assessment: Do you want to hurt yourself or someone else? Patient reports no desire to harm self or others. Onset of symptoms was January 06, 2022. 09:33 Method Of Arrival: Ambulatory ww 09:33 Acuity: XIOMARA 3 ww Triage Assessment: 09:35 General: Appears in no apparent distress. Behavior is calm, cooperative. Pain: Denies ww pain. Neuro: Level of Consciousness is awake, alert, obeys commands, Oriented to person, place, time, situation, Moves all extremities. Gait is steady, Speech is normal. Cardiovascular: Patient's skin is warm and dry. Chest pain is denied. Respiratory: Airway is patent Respiratory effort is even, unlabored, Respiratory pattern is regular, symmetrical. GI: Reports cramping. : Reports vaginal bleeding that is. Derm: Skin is intact, is healthy with good turgor. PROGRAM DIR: 09:35 LMP 11/14/2021 ww 10:06 1, Full Term 0, Living 0 pm1 Historical: - Allergies: 09:35 No Known Allergies; ww - Home Meds: 09:35 None [Active]; ww - PSHx: 09:35 None; ww - Immunization history:: Adult Immunizations up to date. - Social history:: Smoking status: Patient denies any tobacco usage or history of. Screenin:37 Abuse screen: Denies threats or abuse. Denies injuries from another. Nutritional ww screening: No deficits noted. Tuberculosis screening: No symptoms or risk factors identified. Fall Risk None identified. Assessment: 09:55 General: Appears in no apparent distress. comfortable, obese, well groomed, Behavior is cb5 calm, cooperative, appropriate for age. General: pt c/o vaginal bleeding, reports small amount of bright red blood no abd pain.. Pain: Denies pain. Neuro: No deficits noted. Level of Consciousness is awake, alert, obeys commands. Cardiovascular: No deficits noted. Respiratory: No deficits noted. GI: No deficits noted. : No deficits noted. EENT: No deficits noted. Derm: No deficits noted. Musculoskeletal: No deficits noted. 11:00 Reassessment: Patient and/or family updated on plan of care and expected duration. Pain cb5 level reassessed. 12:00 Reassessment: Patient and/or family updated on plan of care and expected duration. Pain cb5 level reassessed. Vital Signs: 09:33 BP 141 / 103; Pulse 85; Resp 19; Temp 98.6; Pulse Ox 100% ; Weight 97.07 kg; Height 5 ww ft. 0 in. (152.40 cm); Pain 0/10; 14:00 BP 138 / 77; Pulse 80; Resp 16; Temp 98.6; Pulse Ox 98% ; Pain 0/10; cb5 09:33 Body Mass Index 41.79 (97.07 kg, 152.40 cm) ww ED Course: 09:16 Patient arrived in ED. as 09:35 Triage completed. ww 09:35 Arm band placed on right wrist. ww 09:51 Etelvina Rain, RN is Primary Nurse. cb5 09:55 Bed in low position. Call light in reach. Side rails up X 1. cb5 09:55 No provider procedures requiring assistance completed. cb5 09:58 Geovany Zaman NP is PHCP. pm1 09:58 Brian Coffman MD is Attending Physician. pm1 10:50 Abo/rh Typing Sent. cb5 10:50 Basic Metabolic Panel Sent. cb5 10:50 CBC with Diff Sent. cb5 10:50 Quantitative Hcg Sent. cb5 10:50 Test Urine - POC Sent. cb5 10:50 Urine Microscopic Only Sent. cb5 13:02 US Transvaginal Ob In Process Unspecified. EDMS 14:29 IV discontinued. cb5 Administered Medications: No medications were administered Outcome: 13:49 Discharge ordered by . pm1 14:28 Discharged to home ambulatory. cb5 14:28 Condition: stable 14:28 Discharge instructions given to patient. 14:29 Patient left the ED. cb5 Signatures: Dispatcher [employer] Freda Desir Patrick, VAL[employer]IE [employer]ER pm1 Mirta Puga, RN RN ww Etelvina Rain, RN RN cb5 Corrections: (The following items were deleted from the chart) 09:36 09:35 PMHx: gall bladder problems; aries chris 09:36 09:35 PMHx: Pneumonia; aries chris
--- NOTE | 2022-01-06 13:50 | EDPHYS ---
Physician Documentation [facility] Name: Lindsay Hidalgo Age: 21 yrs Sex: Female : 2000 Arrival Date: 01/06/2022 Time: 09:16 Bed 13 Private MD: KAM Physician Brian Coffman HPI: 01/06 10:06 This 21 yrs old Female presents to ER via Ambulatory with complaints of pm1 Vaginal Bleeding, + Preg <12wks. 10:06 The patient presents to the emergency department with vaginal bleeding, that is light, pm1 reports using 0 pads or tampons per day, present on tissue paper with wiping when urinating this AM. The estimated gestational age is 5 weeks. course: care: at a clinic, Leakage of Fluid: none appreciated, Ultrasound: the patient has not had an ultrasound, Risk/complications: no obvious risks or complications are appreciated. Previous pregnancies: the patient has never been . Associated signs and symptoms: Pertinent negatives: abdominal pain, diarrhea, dysuria, fever, nausea, vomiting. The patient has not experienced similar symptoms in the past. The patient has been recently seen by a physician: 12/28 for labs and verification of . [employer]: 09:35 LMP 11/14/2021 ww 10:06 1, Full Term 0, Living 0 pm1 Historical: - Allergies: 09:35 No Known Allergies; ww - Home Meds: 09:35 None [Active]; ww - PSHx: 09:35 None; ww - Immunization history:: Adult Immunizations up to date. - Social history:: Smoking status: Patient denies any tobacco usage or history of. ROS: 10:06 Constitutional: Negative for fever, chills, and weight loss, Cardiovascular: Negative pm1 for chest pain, palpitations, and edema, Respiratory: Negative for shortness of breath, cough, wheezing, and pleuritic chest pain, Abdomen/GI: Negative for abdominal pain, nausea, vomiting, diarrhea, and constipation, Back: Negative for injury and pain. 10:06 MS/Extremity: Negative for injury and deformity, Skin: Negative for injury, rash, and discoloration, Neuro: Negative for headache, weakness, numbness, tingling, and seizure. 10:06 : Positive for vaginal bleeding, Negative for urinary symptoms, flank pain. 10:06 All other systems are negative. Exam: 10:06 Constitutional: This is a well developed, well nourished patient who is awake, alert, pm1 and in no acute distress. Head/Face: Normocephalic, atraumatic. 10:06 Back: No spinal tenderness. No costovertebral tenderness. Full range of motion. Skin: Warm, dry with normal turgor. Normal color with no rashes, no lesions, and no evidence of cellulitis. MS/ Extremity: Pulses equal, no cyanosis. Neurovascular intact. Full, normal range of motion. 10:06 Cardiovascular: Exam negative for acute changes, Rate: normal, Rhythm: regular, Pulses: no pulse deficits are appreciated. 10:06 Respiratory: Exam negative for acute changes, respiratory distress, shortness of breath. 10:06 Abdomen/GI: Inspection: abdomen appears normal, Palpation: abdomen is soft and non-tender, in all quadrants. 10:06 Neuro: Exam negative for acute changes, Orientation: is normal, Mentation: is normal, Motor: is normal, moves all fours. Vital Signs: 09:33 BP 141 / 103; Pulse 85; Resp 19; Temp 98.6; Pulse Ox 100% ; Weight 97.07 kg; Height 5 ww ft. 0 in. (152.40 cm); Pain 0/10; 14:00 BP 138 / 77; Pulse 80; Resp 16; Temp 98.6; Pulse Ox 98% ; Pain 0/10; cb5 09:33 Body Mass Index 41.79 (97.07 kg, 152.40 cm) ww MDM: 10:04 Patient medically screened. [facility] [place] 11:12 Data reviewed: vital signs. Data interpreted: Pulse oximetry: on room air is 100 %. pm1 Interpretation: normal. 13:48 Counseling: I had a detailed discussion with the patient and/or guardian regarding: the pm1 historical points, exam findings, and any diagnostic results supporting the discharge/admit diagnosis, lab results, radiology results, the need for outpatient follow up, to return to the emergency department if symptoms worsen or persist or if there are any questions or concerns that arise at home. 01/06 09:58 Order name: Abo/rh Typing; Complete Time: 13:48 pm1 01/06 09:58 Order name: Basic Metabolic Panel; Complete Time: 11:20 pm1 01/06 09:58 Order name: CBC with Diff; Complete Time: 11:08 pm1 01/06 09:58 Order name: Quantitative Hcg; Complete Time: 11:20 pm1 01/06 10:24 Order name: Urine Dipstick-Ancillary; Complete Time: 10:30 EDMS 01/06 10:30 Order name: Urine Microscopic Only; Complete Time: 11:08 pm1 01/06 09:58 Order name: IV Saline Lock; Complete Time: 10:50 pm1 01/06 09:58 Order name: Labs collected and sent; Complete Time: 10:50 pm1 01/06 09:58 Order name: NPO; Complete Time: 10:50 pm1 01/06 09:58 Order name: Urine Dipstick-Ancillary (obtain specimen); Complete Time: 10:25 pm1 01/06 09:58 Order name: Urine Test (obtain specimen); Complete Time: 10:25 pm1 01/06 10:31 Order name: Test Urine - POC; Complete Time: 11:08 sp 01/06 11:21 Order name: US Transvaginal Ob; Complete Time: 13:48 pm1 Administered Medications: No medications were administered Disposition Summary: 01/06/22 13:49 Discharge Ordered Location: Home pm1 Problem: new pm1 Symptoms: have improved pm1 Condition: Stable pm1 Diagnosis - Threatened pm1 Followup: pm1 - With: Emergency Department - When: As needed - Reason: Worsening of condition Followup: pm1 - With: Private Physician - When: 2 - 3 days - Reason: Recheck today's complaints, Continuance of care, Re-evaluation by your physician Discharge Instructions: - Discharge Summary Sheet pm1 - Threatened Miscarriage pm1 Forms: - Medication Reconciliation Form pm1 - Thank You Letter pm1 - Antibiotic Education pm1 - Prescription Opioid Use pm1 Addendum: 01/07/2022 18:26 Co-signature as Attending Physician, Brian Coffman MD I agree with the assessment and c valdez plan of care. Signatures: Dispatcher [employer] Brian Bass MD MD cha Marinas, Patrick, VAL[employer]IE [employer] MACHINE pm1 Mirta Puga, RN RN ww Corrections: (The following items were deleted from the chart) 01/06 09:36 09:35 PMHx: gall bladder problems; ww ww 09:36 09:35 PMHx: Pneumonia; ww ww
[2022-01-06 14:45] VITALS: TEMP 98.6
[2022-01-06 14:47] VITALS: BP 138/77; O2SAT 98
== END 2022-01-06 14:29 | disposition home or self-care (01) ==
LOC: ER 09:15
DX: O20.0 Threatened abortion (principal); Z3A.01 Less than 8 weeks gestation of pregnancy
CPT/HCPCS: 36415; 76817; 80048; 81003; 81015; 81025; 84702; 85025; 86900; 86901; 99283

== ENCOUNTER 2023-06-23 07:26 | Emergency (ER) | payer OTHER ==
--- OUTSIDE RECORDS SUMMARY | 2023-06-23 07:31 | XMS REPORT | Continuity of Care Document ---
:2000 Author Organization [facility] t Address [address] [place] [address] [place] [id number] Care Team Providers Name Role Phone MARIO CORTES Primary Care Physician Unavailable MARIO CORTES Attending Clinician Unavailable KRISSY CROWELL Attending Clinician Unavailable Sebastian Mario CONWAY Attending Clinician [phone] [facility] Attending Clinician Unavailable NANCY GUTHRIE Attending Clinician Unavailable Kathi BRITO, Kathy Quiroz Attending Clinician Nancy Guthrie MD Attending Clinician Bereket Swann MD Attending Clinician Brian Nunez MD Attending Clinician Doctor Unassigned, [place] Attending Clinician Unavailable BHARTI DUARTE Attending Clinician Unavailable Edward BRITO, Asher Reyes Attending Clinician Bharti Duarte MD Attending Clinician 1, [facility] Room Attending Clinician Unavailable Mark Freed MD Attending Clinician MARK FREED Attending Clinician Unavailable 2, [facility] Room Attending Clinician Unavailable Charlie Newton MD Attending Clinician [phone] CHARLIE NEWTONE Attending Clinician Unavailable ONIEL DO Attending Clinician Unavailable Lab, [facility] Attending Clinician Unavailable Lauro BRITO, Sandra Estrella Attending Clinician Oniel Parra Attending Clinician BIBIANA DAVIES Attending Clinician Unavailable Keke MSN, Bibiana Werner Attending Clinician Lelo Aldana MD, Shaunna Attending Clinician [phone] Freyapankaj CHING, Alessio Gomes Attending Clinician Alessio LEE Attending Clinician Unavailable Marsha Do DO Attending Clinician Luke CHING, Nunu Reyes Attending Clinician BHARTI DUARTE Admitting Clinician Unavailable KATHY ARMENTA Admitting Clinician Unavailable Kathy Armenta MD Admitting Clinician Bharti Duarte MD Admitting Clinician Payers Payer Name Policy Type Policy Number Effective Date Expiration Date [facility] [id number] 2021 [facility] MEDICAID 00:00:00 MEDICAID [facility] [id number] 2021 00:00:00 Problems Condition Condition Condition Status Onset Resolution Last Treating Co mments Source Name Details Category Date Date Treatment Clinician Date Routine Routine Disease Active 2021-10 Univers 0-31 [place] [facility] Liveborn Liveborn Disease Active 2021-10 Unive rs , of infant, of 0-10 it y of cul[place] , , 00 Me dical born in born in [facility] by by delivery delivery Premature Premature Disease Active 2021-10 Uni vers rupture of rupture of 0-09 [place] of membranes membranes 00:00[place] with onset with onset 00 Me dical of labor of labor Branch within 24 within 24 hours of hours of rupture rupture 36 weeks 36 weeks Disease Active 2021-10 Unive rs gestation gestation 0-09 ity of of of 00:00: [place] 00 [facility] Vaginal Vaginal Disease Active Univers bleeding bleeding 8-13 ity of in in 00:00: [place] 00 [facility] Branch Carpal Carpal Disease Active Univers tunnel tunnel 7-27 ity of syndrome syndrome 00:00: [place] during during 00 Medical Bran ch Nausea and Nausea and Disease Active U nivers vomiting vomiting 3-31 ity of in in 00:00: [place] 00 [facility] Branch Maternal Maternal Disease Active Unive rs morbid morbid 3-03 ity of obesity, obesity, 00:00: [place] antepartum antepartum 00 Me dical , third , third Branch trimester trimester Gestationa Gestationa Disease Active U nivers l l 3-03 ity of hypertensi hypertensi 00:00: [place] on, third on, third 00 Medi [facility] trimester trimester Bran ch Supervisio Supervisio Disease Active U nivers n of n of 3-03 ity of high-risk high-risk 00:00[place] [facility] Obesity in Obesity in Disease Active U nivers 3-03 ity of 00:00: [place] 00 [facility] Branch Elevated Elevated Disease Active Unive rs blood blood 3-03 ity of pressure pressure 00:00: [place] reading reading 00 Medical without without Branch diagnosis diagnosis of of hypertensi hypertensi on on Allergies, Adverse Reactions, Alerts Allergy Allergy Status Severity Reaction(s) Onset Inactive Treating Comm ents Source Name Type Date Date Clinician NO KNOWN Drug Active Univers ALLERGIE Class ity of S [facility] [place] Social History Social Habit Start Date Stop Date Quantity Comments Source ASSERTION 2021-12-09 University 00:00:00 [facility] [place] Exposure to 2022-08-16 2022-08-26 Not sure [facility]-CoV-2 00:00:00 19:15:00 [facility] (event) [place] Tobacco use and 2022-06-13 2022-06-13 Smokeless tobacco Un iversity of exposure 00:00:00 00:00:00 non-user [facility] [place] Sex Ass[birth year] At [birth year] Universit y of 00:00:00 00:00:00 [facility] [place] Smoking Status Start Date Stop Date Source Never smoked tobacco [facility] Medications Ordered Filled Start Stop Current Ordering Indication Dosage Frequency Signature Comments Components Source Medication Medication Date Date Medication? Clinician (SIG) Name Name ibuprofen 2021-10 Yes 600mg 600 mg, Univ ers (IBU) 0-12 Oral, Q6H ity of tablet 600 11:00: ABX, First [place] mg 00 dose on Medical Wed Branch 08/08/22 at 0600, Until Discontinu ed, Routine ibuprofen 2021-10 Yes 600mg 600 mg, Univ ers (IBU) 0-12 Oral, Q6H ity of tablet 600 11:00: ABX, First [place] mg 00 dose on Medical Wed Branch 08/08/22 at 0600, Until Discontinu ed, Routine acetaminoph 2021-10 Yes [id number] 650mg Take 2 Univers en 325 mg 0-12 tablets by ity of tablet 00:00: mouth [place] 00 every 6 Medical (six) Branch hours as needed for Pain (scale 1-3) or Pain (scale 4-6). 2021-10 Yes [id number] 1{tbl} Take 1 Univers vitamin 0-12 tablet by ity of w/FA tablet 00:00: mouth in [place] 00 the Medical morning. Branch docusate 2021-10 Yes [id number] 200mg Take 2 U nivers 100 mg 0-12 capsules ity of capsule 00:00: by mouth [place] 00 once daily Medical as needed Branch for Constipati on. ferrous 2021-10 Yes [id number] 325mg Take 1 Un last sulfate 325 0-12 tablet by ity of mg (65 mg 00:00: mouth [place] iron) 00 the Medical tablet morning Branch and 1 tablet in the evening. ibuprofen 2021-10 Yes [id number] 600mg Take 1 Univers 600 mg 0-12 tablet by ity of tablet 00:00: mouth [place] 00 every 6 Medical (six) Branch hours as needed (Pain). Take with food or milk. acetaminoph 2021-10 Yes [id number] 650mg Take 2 Univers en 325 mg 0-12 tablets by ity of tablet 00:00: mouth [place] 00 every 6 Medical (six) Branch hours as needed for Pain (scale 1-3) or Pain (scale 4-6). 2021-10 Yes [id number] 1{tbl} Take 1 Univers vitamin 0-12 tablet by ity of w/FA tablet 00:00: mouth in [place] 00 the Medical morning. Branch docusate 2021-10 Yes [id number] 200mg Take 2 U nivers 100 mg 0-12 capsules ity of capsule 00:00: by mouth [place] 00 once daily Medical as needed Branch for Constipati on. ferrous 2021-10 Yes [id number] 325mg Take 1 Un last sulfate 325 0-12 tablet by ity of mg (65 mg 00:00: [place] iron) 00 the Medical tablet morning Branch and 1 tablet in the evening. ibuprofen 2021-10 Yes [id number] 600mg Take 1 Univers 600 mg 0-12 tablet by ity of tablet 00:00: mouth [place] 00 every 6 Medical (six) Branch hours as needed (Pain). Take with food or milk. acetaminoph 2021-10 Yes [id number] 650mg Take 2 Univers en 325 mg 0-12 tablets by ity of tablet 00:00: mouth [place] 00 every 6 Medical (six) Branch hours as needed for Pain (scale 1-3) or Pain (scale 4-6). 2021-10 Yes [id number] 1{tbl} Take 1 Univers vitamin 0-12 tablet by ity of w/FA tablet 00:00: mouth in [place] 00 the Medical morning. Branch docusate 2021-10 Yes [id number] 200mg Take 2 U nivers 100 mg 0-12 capsules ity of capsule 00:00: by mouth [place] 00 once daily Medical as needed Branch for Constipati on. ferrous 2021-10 Yes [id number] 325mg Take 1 Un last sulfate 325 0-12 tablet by ity of mg (65 mg 00:00: mouth [place] iron) 00 the Medical tablet morning Branch and 1 tablet in the evening. ibuprofen 2021-10 Yes [id number] 600mg Take 1 Univers 600 mg 0-12 tablet by ity of tablet 00:00: mouth [place] 00 every 6 Medical (six) Branch hours as needed (Pain). Take with food or milk. HYDROcodone 2021-10- No [id number] 1{tbl} Take 1 U nivers -acetaminop 0-12 10-20 tablet by it y of hen 5-325 00:00: 04:59 mouth [place] mg tablet 00 :00 every 6 Medical (six) Branch hours as needed for Pain (scale 7-10) (Alternate with Ibuprofen) for up to 7 days. Indication s: acute pain HYDROcodone 2021-10- No [id number] 1{tbl} Take 1 U nivers -acetaminop 0-12 10-20 tablet by it y of hen 5-325 00:00: 04:59 mouth [place] mg tablet 00 :00 every 6 Medical (six) Branch hours as needed for Pain (scale 7-10) (Alternate with Ibuprofen) for up to 7 days. Indication s: acute pain gabapentin 2021-10- No [id number] 300mg Take 1 Univers 300 mg 0-12 10-18 capsule by ity of capsule 00:00: 04:59 mouth in [place] 00 :00 the Medical morning Branch and 1 capsule at noon and 1 capsule in the evening. Do all this for 5 days. gabapentin 2021-10- No [id number] 300mg Take 1 Univers 300 mg 0-12 10-18 capsule by ity of capsule 00:00: 04:59 mouth in [place] 00 :00 the Medical morning Branch and 1 capsule at noon and 1 capsule in the evening. Do all this for 5 days. ketorolac 2021-10- No 30mg 30 mg, Unive rs (TORADOL) 0-11 10-12 Slow IV ity of injection 11:00: 10:59 [place], Q6H [place] 30 mg 00 :00 ABX, 4 Medical doses, Branch First dose on Sat08/07/22 at 0600, Last dose on Sat08/08/22 at 0000, Routine ketorolac 2021-10 No 30mg 30 mg, Unive rs (TORADOL) 0-11 10-12 Slow IV ity of injection 11:00: 05:10 [place], Q6H [place] 30 mg 00 :00 ABX, 4 Medical doses, Branch First dose on Sat08/07/22 at 0600, Last dose on Sat08/08/22 at 0000, Routine acetaminoph 2021-10 Yes 650mg 650 mg, Un last en 0-11 Oral, Q6H ity of (TYLENOL) 05:00: ABX, First [place] tablet 650 00 dose on Medica l mg Sat08/07/22 at 0000, Until Discontinu ed, Routine acetaminoph 2021-10 Yes 650mg 650 mg, Un last en 0-11 Oral, Q6H ity of (TYLENOL) 05:00: ABX, First [place] tablet 650 00 dose on Medica l mg Tue Branch 08/07/22 at 0000, Until Discontinu ed, Routine gabapentin 2021-10 Yes 300mg 300 mg, Uni vers (NEURONTIN) 0-11 Oral, TID, it y of capsule 300 01:00: First dose [place] mg 00 on [facility] Medical 08/06/22 Branch at 2000, Until Discontinu ed, Routine gabapentin 2021-10 Yes 300mg 300 mg, Uni vers (NEURONTIN) 0-11 Oral, TID, it y of capsule 300 01:00: First dose [place] mg 00 on [facility] Medical 08/06/22 Branch at 2000, Until Discontinu ed, Routine lactated 2021-10 No 1000mL at 125 [facility] ers ringers IV 0-10 10-11 mL/hr, ity of infusion 23:15: 04:22 1,000 mL, [place] 1,000 mL 00 :00 IV Medical Infusion, Branch ONCE, 1 dose, On Sat08/06/22 at 1815, Routine rho(D) 2021-10 Yes 300ug 300 mcg, Univer s immune 0-10 Intramuscu ity of globulin 22:42: lar, ONCE, [place] (RHOGAM) 28 For 1 Medical syringe 300 dose, Branch mcg Conditiona l, Routine rho(D) 2021-10 Yes 300ug 300 mcg, Univer s immune 0-10 Intramuscu ity of globulin 22:42: lar, ONCE, [place] (RHOGAM) 28 For 1 Medical syringe 300 dose, Branch mcg Conditiona l, Routine HYDROcodone 2021-10 Yes 1{tbl} 1 tablet, Univers -acetaminop 0-10 Oral, ity of hen (NORCO 22:41: Q6HPRN, [place] 5) 5-325 mg 48 Starting Medi gena tablet 1 on Sat Branch tablet 08/06/22 at 1741, Until Discontinu ed, Routine, Pain (scale 7-10), Alternate with Ibuprofen diphenhydrA 2021-10 Yes 25mg 25 mg, Univ ers MINE 0-10 Slow IV ity of (BENADRYL) 22:41: Push, [place] injection 48 Q6HPRN, Medical 25 mg Starting Branch on Mon 22 at 1741, Until Discontinu ed, Routine, Itching diphenhydrA 2021-10 Yes 25mg 25 mg, Univ ers MINE 0-10 Oral, ity of (BENADRYL) 22:41: Q6HPRN, [place] tablet 25 48 Starting Medica l mg on Sat08/06/22 at 1741, Until Discontinu ed, Routine, Sleep, Itching ondansetron 2021-10 Yes 4mg 4 mg, Slow Univers (ZOFRAN 0-10 IV Push, ity of (PF)) 22:41: Q8HPRN, [place] injection 4 48 Starting Medi gena mg on Sat08/06/22 at 1741, Until Discontinu ed, Routine, Nausea and Vomiting (N/V) bisacodyL 2021-10 Yes 10mg 10 mg, Univer s (DULCOLAX) 0-10 Rectal, ity of suppository 22:41: QDAILYPRN, [place] 10 mg 48 Starting Medical on Sat08/06/22 at 1741, Until Discontinu ed, Routine, Constipati on simethicone 2021-10 Yes 160mg 160 mg, Un last (GAS RELIEF 0-10 Oral, ity of (SIMETHICON 22:41: PC+HSPRN, [place] E)) 48 Starting Medical chewable on Sat tablet 160 08/06/22 mg at 1741, Until Discontinu ed, Routine, Gas docusate 2021-10 Yes 200mg 200 mg, Unive rs (COLACE) 0-10 Oral, ity of capsule 200 22:41: QDAILYPRN, [place] mg 48 Starting Medical on Sat08/06/22 at 1741, Until Discontinu ed, Routine, Constipati on magnesium 2021-10 Yes 30mL 30 mL, Univer s hydroxide 0-10 Oral, ity of (MILK OF 22:41: QDAILYPRN, [place] MAGNESIA) 48 Starting Medica l 400 mg/5 mL on Sat suspension 08/06/22 30 mL at 1741, Until Discontinu ed, Routine, Constipati on lactated 2021-10 Yes 1000mL at 125 Unive rs ringers IV 0-10 mL/hr, ity of infusion 22:41: 1,000 mL, [place] 1,000 mL 48 IV Medical Infusion, Branch PRN, 1 dose, Starting on Sat08/06/22 at 1741, Until Discontinu ed, Routine HYDROcodone 2021-10 Yes 1{tbl} 1 tablet, Univers -acetaminop 0-10 Oral, ity of hen (NORCO 22:41: Q6HPRN, [place] 5) 5-325 mg 48 Starting Medi gena tablet 1 on Sat Branch tablet 08/06/22 at 1741, Until Discontinu ed, Routine, Pain (scale 7-10), Alternate with Ibuprofen diphenhydrA 2021-10 Yes 25mg 25 mg, Univ ers MINE 0-10 Slow IV ity of (BENADRYL) 22:41: Push, [place] injection 48 Q6HPRN, Medical 25 mg Starting Branch on Sat08/06/22 at 1741, Until Discontinu ed, Routine, Itching diphenhydrA 2021-10 Yes 25mg 25 mg, Univ ers MINE 0-10 Oral, ity of (BENADRYL) 22:41: Q6HPRN, [place] tablet 25 48 Starting Medica l mg on Sat Branch 08/06/22 at 1741, Until Discontinu ed, Routine, Sleep, Itching ondansetron 2021-10 Yes 4mg 4 mg, Slow Univers (ZOFRAN 0-10 IV Push, ity of (PF)) 22:41: Q8HPRN, [place] injection 4 48 Starting Medi gena mg on Sat Branch 08/06/22 at 1741, Until Discontinu ed, Routine, Nausea and Vomiting (N/V) bisacodyL 2021-10 Yes 10mg 10 mg, Univer s (DULCOLAX) 0-10 Rectal, ity of suppository 22:41: QDAILYPRN, [place] 10 mg 48 Starting Medical on Sat Branch 08/06/22 at 1741, Until Discontinu ed, Routine, Constipati on simethicone 2021-10 Yes 160mg 160 mg, Un last (GAS RELIEF 0-10 Oral, ity of (SIMETHICON 22:41: PC+HSPRN, [place] E)) 48 Starting Medical chewable on Sat Branch tablet 160 08/06/22 mg at 1741, Until Discontinu ed, Routine, Gas docusate 2021-10 Yes 200mg 200 mg, Unive rs (COLACE) 0-10 Oral, ity of capsule 200 22:41: QDAILYPRN, [place] mg 48 Starting Medical on Mon Branch 08/06/22 at 1741, Until Discontinu ed, Routine, Constipati on magnesium 2021-10 Yes 30mL 30 mL, Univer s hydroxide 0-10 Oral, ity of (MILK OF 22:41: QDAILYPRN, [place] MAGNESIA) 48 Starting Medica l 400 mg/5 mL on Sat Branch suspension 08/06/22 30 mL at 1741, Until Discontinu ed, Routine, Constipati on lactated 2021-10 Yes 1000mL at 125 Unive rs ringers IV 0-10 mL/hr, ity of infusion 22:41: 1,000 mL, [place] 1,000 mL 48 IV Medical Infusion, Branch PRN, 1 dose, Starting on 08/06/22 at 1741, Until Discontinu ed, Routine mupirocin 2021-10 Yes Intra-op Univ ers (BACTROBAN 0-10 ity of OINT) 2 % 20:20: [place] skin 00 Medical ointment Branch mupirocin 2021-10 Yes Intra-op Univ ers (BACTROBAN 0-10 ity of OINT) 2 % 20:20: [place] skin 00 Medical ointment Branch sodium 2021-10 Yes PRN, Univers chloride 0-10 Starting ity of 0.9 % 20:16: on [facility] irrigation 00 08/06/22 Medic al solution at 1516, Branch Until Discontinu ed, Intra-op sodium 2021-10 Yes PRN, Univers chloride 0-10 Starting ity of 0.9 % 20:16: on [facility] irrigation 00 08/06/22 Medic al solution at 1516, Branch Until Discontinu ed, Intra-op acetaminoph 2021-10- No IV Unive rs en ADULT 0-10 10-10 Infusion, ity o f (OFIRMEV) 19:58: 20:34 Administer [place] injection 00 :42 over 15 Medical Minutes, Branch ONCE INTRA PROCEDURE, Starting on Sat08/06/22 at 1458, Until Sat08/06/22 at 1534, Routine, Intra-op propofoL IV 2021-10- No IV Unive rs infusion 0-10 10-10 Infusion, ity o f 19:52: 20:34 ONCE INTRA [place] 00 :42 PROCEDURE, Medical Starting Branch on Sat08/06/22 at 1452, Until Sat08/06/22 at 1534, Routine, Intra-op azithromyci 2021-10- No IV Unive rs n 0-10 10-10 Piggyback, ity of (ZITHROMAX) 19:43: 20:34 ONCE INTRA [place] injection 00 :42 PROCEDURE, [facility] gena Starting Branch on Sat08/06/22 at 1443, Until Sat08/06/22 at 1534, FLACO, Intra-op morpHINE PF 2021-10- No Epidural, Univers (DURAMORPH- 0-10 10-10 ONCE INTRA i ty of PF) 19:39: 20:34 PROCEDURE, [place] injection 00 :42 Starting Medica l on Mon Branch 08/06/22 at 1439, Until Sat08/06/22 at 1534, Routine, Intra-op LR 1000 mL 2021-10- No IV Univer s + oxytocin 0-10 10-10 Infusion, ity of 40 units 40 19:35: 20:34 CONTINUOUS [place] unit/ 1,000 00 :42 PRN, Medical mL IV Starting Branch Solution on Sat08/06/22 at 1435, Until Sat08/06/22 at 1534, Routine, Intra-op ondansetron 2021-10- No Slow IV Un last (ZOFRAN 0-10 10-10 Push, ONCE ity o f (PF)) 19:20: 20:34 INTRA [place] injection 00 :42 PROCEDURE, [facility] gena Starting Branch on Sat08/06/22 at 1420, Until Sat08/06/22 at 1534, Routine, Intra-op lactated 2021-10- No IV Univers ringers IV 0-10 10-10 Infusion, ity of infusion 18:50: 20:34 CONTINUOUS [place] 00 :42 PRN, Medical Starting Branch on Sat08/06/22 at 1350, Until Sat08/06/22 at 1534, Routine, Intra-op lidocaine 2021-10- No Epidural, Un last 2% + 0-10 10-10 CONTINUOUS ity of epinephrine 18:50: 20:34 PRN, [place] 1:1000 + 00 :42 Starting Medical fentanyl 50 on Mon Branch mcg/mL + 08/06/22 sodium at 1350, bicarb 8.4% Until Sat08/06/22 at 1534, Routine, Intra-op ceFAZolin 2021-10- No 2000mg 2 g (2,000 Univers in 0.9% 0-10 10-10 mg), IV ity of sodium 18:43: 19:15 Piggyback, [place] chloride 49 :00 O.R. Medical (ANCEF) 2 HOLDING Branch gram/100 mL ONCE, 1 RTU 2 g dose, Starting on Sat08/06/22 at 1343, Until Sat08/06/22 at 1415, Administer over 30 Minutes, 100 mL
Reas on for Anti-Infec tive: Surgical Prophylaxi s
Surgi gena Prophylaxi s: [employer]
Duration of therapy: within 24 hours of surgery betamethaso 2021-10- No 12mg 12 mg, Uni vers ne acet,sod 0-10 10-10 Intramuscu i ty of phos 13:45: 13:13 lar, ONCE, [place] (CELESTONE 00 :00 1 dose, On Med ical SOLUSPAN) 6 Mon Branch mg/mL 08/06/22 injection at 0845, 12 mg Routine fentaNYL-ro 2021-10- No Epidural, Univers pivacaine 2 0-10 10-10 ONCE INTRA i ty of mcg/mL-0.1 01:59: 20:34 PROCEDURE, [place] % (PF) in 00 :42 Starting Medica l NS 200 mL on [place] Branch epidural 08/05/22 at infusion 2058, RTU Until Discontinu ed, Routine, Intra-op fentaNYL-ro 2021-10- No Epidural, Univers pivacaine 2 0-10 10-10 CONTINUOUS i ty of mcg/mL-0.1 01:59: 20:34 PRN, [place] % (PF) in 00 :42 Starting Medica l NS 200 mL on [place] Branch epidural 08/05/22 at infusion 2058, RTU Until Discontinu ed, Routine, Intra-op lidocaine-e 2021-10- No Epidural, Univers pinephrine 0-10 10-10 ONCE INTRA it y of (XYLOCAINE 01:51: 20:34 PROCEDURE, [place] W/EPINEPHRI 00 :42 Starting Medi gena NE) 1.5 on [place] Branch %-1:200,000 08/05/22 at injection 2050, Until Discontinu ed, Routine, Intra-op oxytocin 2021-10- No 2mU/min at 2-40 Un last (PITOCIN) 0-09 10-10 mL/hr, IV ity of 30 units in 18:16: 22:42 Infusion, [place] NS 500 mL 03 :26 TITRATE, Medica l IV infusion Starting Bran ch on [place] 08/05/22 at 1316, Until Sat08/06/22 at 1742, FLACO terbutaline 2021-10- No .25mg 0.25 mg, Univers (BRETHINE) 0-09 10-10 Subcutaneo it y of injection 17:20: 22:42 us, Q15MIN [place] 0.25 mg 55 :26 PRN, Medical Starting Branch on [place] 08/05/22 at 1220, Until Sat08/06/22 at 1742, Routine, Tachysysto le with NRFHT FENTanyl PF 2021-10- No 100ug 100 mcg, Univers (SUBLIMAZE 0-09 10-10 Slow IV ity o f (PF)) 17:20: 22:42 Push, [place] injection 27 :26 Q1HPRN, Medical 100 mcg Starting Branch on [place] 08/05/22 at 1220, Until Sat08/06/22 at 1742, Routine, Pain (scale 4-6), Pain (scale 7-10) lactated 2021-10- No 500mL at 999 Unive rs ringers IV 0-09 10-10 mL/hr, 500 it y of infusion 17:16: 22:42 mL, IV [place] 500 mL 03 :26 Infusion, Medical PRN - SEE Branch INSTRUCTIO NS, Starting on [place] 08/05/22 at 1216, Until Sat08/06/22 at 1742, Routine D5W-LR IV 2021-10- No 1000mL at 1-125 U nivers infusion 0-09 10-10 mL/hr, IV ity o f 1,000 mL 17:16: 22:42 Infusion, [place] as 03 :26 TITRATE, Medical Starting Branch on [place] 08/05/22 at 1216, Until 08/06/22 at 1742, Routine PNV 2021-0 Yes [id number] 2{tbl} Take 2 Unive rs no.153-FA-o 8-31 tablets by it y of m3-dha-epa- 00:00: mouth [place] fish 00 daily. Medical ( Branch GUMMIES) 400 mcg-35 mg- 25 mg-5 mg Chew PNV 2021-0 Yes [id number] 2{tbl} Take 2 Unive rs no.153-FA-o 8-31 tablets by it y of m3-dha-epa- 00:00: mouth [place] fish 00 daily. Medical ( Branch GUMMIES) 400 mcg-35 mg- 25 mg-5 mg Chew PNV 2021-0 Yes [id number] 2{tbl} Take 2 Unive rs no.153-FA-o 8-31 tablets by it y of m3-dha-epa- 00:00: mouth [place] fish 00 daily. Medical ( Branch GUMMIES) 400 mcg-35 mg- 25 mg-5 mg Chew PNV 0 2021- No [id number] 2{tbl} Take 2 Univ ers no.153-FA-o 8-31 10-09 tablets by i ty of m3-dha-epa- 00:00: 00:00 mouth [place] fish 00 :00 daily. Medical ( Branch GUMMIES) 400 mcg-35 mg- 25 mg-5 mg Chew PNV 0 2- No [id number] 2{tbl} Take 2 Univ ers no.153-FA-o 8-31 10-09 tablets by i ty of m3-dha-epa- 00:00: 00:00 mouth [place] fish 00 :00 daily. Medical ( Branch GUMMIES) 400 mcg-35 mg- 25 mg-5 mg Chew proMETHazin 0 Yes [id number] 25mg Take 1 Univers e 25 mg 3-31 tablet by ity of tablet 00:00: mouth [place] 00 every 6 Medical (six) Branch hours as needed for Nausea and Vomiting (N/V). PNV 67-iron 2021-0 Yes [id number] 1{each} Take 1 Univers ps-folate 3-31 Each by ity of no.1-dha 00:00: mouth [place] (VITAFOL 00 daily. Medical ULTRA) 29 Branch mg iron- 1 mg-200 mg Cap proMETHazin 2022-0 Yes [id number] 25mg Take 1 Univers e 25 mg 3-31 tablet by ity of tablet 00:00: mouth [place] 00 every 6 Medical (six) Branch hours as needed for Nausea and Vomiting (N/V). PNV 67-iron 2022-0 Yes [id number] 1{each} Take 1 Univers ps-folate 3-31 Each by ity of no.1-dha 00:00: mouth [place] (VITAFOL 00 daily. Medical ULTRA) 29 Branch mg iron- 1 mg-200 mg Cap proMETHazin 2022-0 Yes [id number] 25mg Take 1 Univers e 25 mg 3-31 tablet by ity of tablet 00:00: mouth [place] 00 every 6 Medical (six) Branch hours as needed for Nausea and Vomiting (N/V). PNV 67-iron 2022-0 Yes [id number] 1{each} Take 1 Univers ps-folate 3-31 Each by ity of no.1-dha 00:00: mouth [place] (VITAFOL 00 daily. Medical ULTRA) 29 Branch mg iron- 1 mg-200 mg Cap proMETHazin 2022-0 Yes [id number] 25mg Take 1 Univers e 25 mg 3-31 tablet by ity of tablet 00:00: mouth [place] 00 every 6 Medical (six) Branch hours as needed for Nausea and Vomiting (N/V). PNV 67-iron 2022-0 Yes [id number] 1{each} Take 1 Univers ps-folate 3-31 Each by ity of no.1-dha 00:00: mouth [place] (VITAFOL 00 daily. Medical ULTRA) 29 Branch mg iron- 1 mg-200 mg Cap proMETHazin 2022-0 Yes [id number] 25mg Take 1 Univers e 25 mg 3-31 tablet by ity of tablet 00:00: mouth [place] 00 every 6 Medical (six) Branch hours as needed for Nausea and Vomiting (N/V). PNV 67-iron 2022-0 Yes [id number] 1{each} Take 1 Univers ps-folate 3-31 Each by ity of no.1-dha 00:00: mouth [place] (VITAFOL 00 daily. Medical ULTRA) 29 Branch mg iron- 1 mg-200 mg Cap proMETHazin 2022-0 Yes [id number] 25mg Take 1 Univers e 25 mg 3-31 tablet by ity of tablet 00:00: mouth [place] 00 every 6 Medical (six) Branch hours as needed for Nausea and Vomiting (N/V). PNV 67-iron Yes [id number] 1{each} Take 1 Univers ps-folate 3-31 Each by ity of no.1-dha 00:00: mouth [place] (VITAFOL 00 daily. Medical ULTRA) 29 Branch mg iron- 1 mg-200 mg Cap proMETHazin 2021- No [id number] 25mg Take 1 Univers e 25 mg 3-31 10-12 tablet by ity of tablet 00:00: 00:00 mouth [place] 00 :00 every 6 Medical (six) Branch hours as needed for Nausea and Vomiting (N/V). PNV 67-iron 2021- No [id number] 1{each} Take 1 Univers ps-folate 3-31 10-12 Each by ity of no.1-dha 00:00: 00:00 mouth [place] (VITAFOL 00 :00 daily. Medical ULTRA) 29 Branch mg iron- 1 mg-200 mg Cap Immunizations Ordered Filled Immunization Date Status Comments [facility] e Immunization Name Name [facility] 2022-06-13 Completed University of 00:00:00 [facility] [place] TDAP 2022-06-13 Completed University of 00:00:00 [facility] [place] TDAP 2022-06-13 Completed University of 00:00:00 [facility] [place] TDAP 2022-06-13 Completed University of 00:00:00 [facility] [place] TDAP 2022-06-13 Completed University of 00:00:00 [facility] [place] TDAP 2022-06-13 Completed University of 00:00:00 [facility] [place] TDAP 2022-06-13 Completed University of 00:00:00 [facility] [place] TDAP 2022-06-13 Completed University of 00:00:00 [facility] [place] TDAP 2022-06-13 Completed University of 00:00:00 [facility] [place] Td 2020-11-17 Completed University of 00:00:00 [facility] [place] Td 2020-11-17 Completed University of 00:00:00 [facility] [place] Td 2020-11-17 Completed University of 00:00:00 [facility] [place] Td 2020-11-17 Completed University of 00:00:00 [facility] [place] Td 2020-11-17 Completed University of 00:00:00 [place] [facility] Td 2020-11-17 Completed University of 00:00:00 [place] [facility] Td 2020-11-17 Completed University of 00:00:00 [place] [facility] Td 2020-11-17 Completed University of 00:00:00 [place] [facility] Td 2020-11-17 Completed University of 00:00:00 [place] [facility] Vital Signs Vital Name Observation Time Observation Value Comments Source Systolic blood 2022-08-27 15:48:00 120 mm[Hg] Univer sity of pressure [place] [facility] Diastolic blood 2022-08-27 15:48:00 84 mm[Hg] Unive rsity of pressure [place] [facility] Heart rate 2022-08-27 15:48:00 78 /min Universi ty of [place] [facility] Body temperature 2022-08-27 15:48:00 36.28 Sophie Univ ersity of [place] [facility] Respiratory rate 2022-08-27 15:48:00 18 /min Univ ersity of [place] [facility] Body height 2022-08-27 15:48:00 152.4 cm Universi ty of [place] [facility] Body weight 2022-08-27 15:48:00 93.98 kg Universi ty of [place] [facility] BMI 2022-08-27 15:48:00 40.46 kg/m2 Universi ty of [place] [facility] Systolic blood 2022-08-13 16:27:00 158 mm[Hg] Univer sity of pressure [place] [facility] Diastolic blood 2022-08-13 16:27:00 94 mm[Hg] Unive rsity of pressure [place] [facility] Heart rate 2022-08-13 16:27:00 75 /min Universi ty of [place] [facility] Body temperature 2022-08-13 16:27:00 36.44 Sophie Univ ersity of [place] [facility] Respiratory rate 2022-08-13 16:27:00 16 /min Univ ersity of [place] [facility] Body height 2022-08-13 16:27:00 152.4 cm Universi ty of [place] [facility] Body weight 2022-08-13 16:27:00 99.791 kg Universi ty of [place] [facility] BMI 2022-08-13 16:27:00 42.97 kg/m2 Universi ty of [place] [facility] Systolic blood 2022-08-08 12:41:00 127 mm[Hg] Univer sity of pressure [place] [facility] Diastolic blood 2022-08-08 12:41:00 91 mm[Hg] Unive rsity of pressure [place] [facility] Body temperature 2022-08-08 12:41:00 36.67 Sophie Univ ersity of [place] [facility] Respiratory rate 2022-08-08 12:41:00 18 /min Univ ersity of [place] [facility] Oxygen saturation in 2022-08-08 12:41:00 100 /min University of Arterial blood by [place] [employer] gena Pulse oximetry Branch Heart rate 2022-08-08 09:30:00 64 /min Universi ty of [place] [facility] Body height 2022-08-05 17:00:00 152.4 cm Universi ty of [place] [facility] Body weight 2022-08-05 17:00:00 102.604 kg Universi ty of [place] [facility] BMI 2022-08-05 17:00:00 44.18 kg/m2 Universi ty of [place] [facility] Systolic blood 2022-08-06 20:45:00 132 mm[Hg] Univer sity of pressure [place] [facility] Diastolic blood 2022-08-06 20:45:00 77 mm[Hg] Unive rsity of pressure [place] [facility] Heart rate 2022-08-06 20:45:00 66 /min Universi ty of [place] [facility] Body temperature 2022-08-06 20:45:00 37 Sophie Univ ersity of [place] [facility] Respiratory rate 2022-08-06 20:45:00 16 /min Univ ersity of [place] [facility] Oxygen saturation in 2022-08-06 20:45:00 100 /min University of Arterial blood by [place] [employer] [facility] Pulse oximetry Branch Body height 2022-08-05 17:00:00 152.4 cm Universi ty of [place] [facility] Body weight 2022-08-05 17:00:00 102.604 kg Universi ty of [place] [facility] BMI 2022-08-05 17:00:00 44.18 kg/m2 Universi ty of [place] [facility] Respiratory rate 2022-08-06 20:24:00 20 /min Univ ersity of [place] [facility] Systolic blood 2022-07-31 16:14:00 121 mm[Hg] Univer sity of pressure [place] [facility] Diastolic blood 2022-07-31 16:14:00 79 mm[Hg] Unive rsity of pressure [facility] [place] Heart rate 2022-07-31 16:14:00 76 /min Universi ty of [facility] [place] Body temperature 2022-07-31 16:14:00 36.33 Sophie [facility] [place] Respiratory rate 2022-07-31 16:14:00 18 /min [facility] [place] Body weight 2022-07-31 16:14:00 104.599 kg Universi ty [facility] BMI 2022-07-31 16:14:00 45.04 kg/m2 Universi ty [facility] Systolic blood 2022-07-11 13:20:00 126 mm[Hg] Univer sity of pressure [facility] [place] Diastolic blood 2022-07-11 13:20:00 83 mm[Hg] Unive rsity of pressure [facility] [place] Heart rate 2022-07-11 13:20:00 91 /min Universi ty [facility] Body temperature 2022-07-11 13:20:00 36.5 Sophie [facility] Res[facility] rate 2022-07-11 13:20:00 18 /min [facility] Body height 2022-07-11 13:20:00 152.4 cm Universi ty [facility] Body weight 2022-07-11 13:20:00 99.848 kg Universi ty [facility] BMI 2022-07-11 13:20:00 42.99 kg/m2 [facility] Procedures Procedure Date / Time Performing Clinician Source Performed POCT URINALYSIS 2022-08-27 15:49:00 Mario Cortes [facility] CBC WITH DIFF 2022-08-07 09:07:[facility] 2022-08-07 09:07:00 [facility] CORD GAS 2022-08-06 19:56:00 Nancy Guthrie [facility] VENOUS CORD GAS 2022-08-06 19:56:00 Nancy Guthrie [facility] SECTION 2022-08-06 18:50:00 Nancy Guthrie [facility] SECTION 2022-08-06 18:50:00 Nancy Guthrie [facility] CENTRAL NEURAXIAL BLOCK 2022-08-06 02:05:00 Bereket Swann [facility] LACTATE DEHYDROGENASE 2022-08-05 23:55:00 Adum, Kathy Quiroz [facility] LACTATE DEHYDROGENASE 2022-08-05 23:55:00 Adum, Kathy Quiroz [facility] HB ABO GROUPING 2022-08-05 17:45:00 Adum, [facility] RHO (D) IMMUNE GLOBULIN 2022-08-05 17:45:00 Artie Nancy [facility] HB ABO GROUPING 2022-08-05 17:45:00 [facility] IMMUNE GLOBULIN 2022-08-05 17:45:00 Artie [facility] SGOT (ASPARTATE AMINO 2022-08-05 17:44:00 Adum, Kathy Quiroz [facility] TRANSFER) Medical Branch CREATININE 2022-08-05 17:44:00 Adum, Kathy Quiroz [facility] ALANINE AMINO 2022-08-05 17:44:00 Adum, Kathy L [facility] TRANSFERASE(SGPT Medical [place] URIC ACID 2022-08-05 17:44:00 Adum, Kathy Quiroz [facility] CBC WITH DIFF 2022-08-05 17:44:00 [facility] HEPATITIS B SURFACE 2022-08-05 17:44:00 Adum, Kathy Quiroz [facility] ANTIGEN Medical Branch ADC OR EDWIN ONLY - 2022-08-05 17:44:00 Adum, Kathy Quiroz [facility] RPR Medical Branch HIV 1/2 AG-AB WITH 2022-08-05 17:44:00 Adum, Kathy Quiroz [facility] REFLEX Medical Branch SGOT (ASPARTATE AMINO 2022-08-05 17:44:00 Adum, Kathy Quiroz [facility] TRANSFER) Medical Branch CREATININE 2022-08-05 17:44:00 Adum, [facility] ALANINE AMINO 2022-08-05 17:44:00 Adum, Kathy Gabriella [facility] TRANSFERASE(SGPT Medical [place] URIC ACID 2022-08-05 17:44:00 Adum, Kathy Quiroz [facility] CBC WITH DIFF 2022-08-05 17:44:00 Adum, Kathy Quiroz [facility] HEPATITIS B SURFACE 2022-08-05 17:44:00 Adum, Kathy Quiroz [facility] ANTIGEN [facility] Branch ADC OR EDWIN ONLY - 2022-08-05 17:44:00 Adum, Kathy Quiroz [facility] RPR [facility] HIV 1/2 AG-AB WITH 2022-08-05 17:44:00 Adum, Kathy Quiroz [facility] REFLEX [facility] GROUP B STREPTOCOCCUS BY 2022-08-05 17:14:00 Adum, Kathy Quiroz [facility] ADC ONLY - FERN TEST 2022-08-05 17:14:00 Adum, Kahty Quiroz [facility] GROUP B STREPTOCOCCUS BY 2022-08-05 17:14:00 Adum, Kathy Quiroz [facility] ADC ONLY - FERN TEST 2022-08-05 17:14:00 Adum, Kathy Quiroz [facility] ASSIGNMENT OF BENEFITS 2022-08-05 16:18:06 Doctor Unassigned, No [facility] Name [facility] POCT URINALYSIS 2022-07-31 16:58:00 Mario Cortes [facility] POCT URINALYSIS 2022-07-11 13:22:00 Mario Cortes [facility] Encounters Start End Encounter Admission Attending Care Care Encounter Source Date/Time Date/Time Type Type Clinicians Facility Department ID 2022-06-10 Outpatient X [facility] MICHAEL [id number] Univers 10:37:40 [facility] 2022-10-08 2022-10-08 Outpatient R MERVAT [facility] [id number] Univers 09:15:00 09:15:00 KRISSY [facility] 2022-09-17 2022-09-17 Outpatient R SEBASTIAN [facility] [id number] Univers 13:00:00 13:00:00 MARIO mccormick [facility] [place] 2022-08-27 2022-08-27 Outpatient R SEBASTIAN [facility] [id number] Univers 10:45:00 11:28:54 MARIO mccormick [facility] [place] 2022-08-27 2022-08-27 Routine Sebastian, [facility] 1.2.330.503 [id number] Univers 10:45:00 11:28:54 Mario Bean HIGH FREQUENCY MILL OPERATOR 350.1.13.10 ity of Visit [facility] 4.2.7.2.686 Chris as MATERNAL [id number] [facility] ical & CHILD [address] [place] [address] 2022-08-13 2022-08-13 [facility] 1.2 .840.114 [id number] Univers 10:00:00 11:34:05 Visit SebastianJhonatanMario C HIGH FREQUENCY MILL OPERATOR 350.1.13. 10 ity of [facility] 4.2.7.2.686 Chris as MATERNAL [id number] [facility] ical & CHILD [address] [place] [address] 2022-08-13 2022-08-13 Outpatient R TYLERSTANISLAWVIDYA, [facility] [id number] Univers 10:00:00 11:34:05 MARIO mccormick [facility] [place] 2022-08-13 2022-08-13 Outpatient R SEBASTIAN [facility] [id number] Univers 11:00:00 11:00:00 MARIO mccormick [facility] [place] 2022-08-05 2022-08-08 Inpatient P NANCY GUTHRIE [facility] MICHAEL [id number] Univers 11:21:00 10:45:00 ity of [facility] [place] 2022-08-05 2022-08-08 Hospital Kathy Armenta [facility] 1.2.840.11 [id number] Univers 11:21:00 10:45:[address] [facility] 350.1.13.10 ity of [place].7.2.686 [place] [id number] [address] 2022-08-072022-08-07 Outpatient R AKINSIPE, [facility] [id number] Univers 14:45:00 14:45:00 MARIO mccormick [facility] [place] 2022-08-06 2022-08-06 Surgery Nancy Guthrie [facility] 1.2.636.182 [id number] Univers 14:00:00 15:58:00 Cam JANE 350.1.13.10 i ty of [place] 4.2.7.2.686 [facility] [id number] [facility] 013 Branch 2022-08-05 2022-08-06 Anesthesia Carlos Enrique Swannrey [facility] 1.2 .840.114 [id number] Univers 20:45:00 15:34:00 Event Brian Nunez 350.1.13.10 ity of [place] 4.2.7.2.686 [facility] [id number] [facility] [address] [place] 2022-08-05 2022-08-05 [facility] 1.2.840.114 [id number] Univers 19:01:23 19:01:23 Event Bereket Eric JANE 350.1.13.10 ity of [place] 4.2.7.2.686 [facility] [id number] [facility] 083 Branch 2022-08-05 2022-08-05 Orders Doctor BRIAN 1.2.840.114 [id number] Univers 00:00:00 00:00:00 Only Unassigned, AZALEA 350.1.13.10 ity of [place] [facility] 4.2.7.2.686 Chris as [id number] [facility] 009 Branch 2022-07-31 2022-07-31 Outpatient R AKINSIPE, [facility] [id number] Univers 11:00:00 11:56:32 MARIO mccormick [facility] [place] 2022-07-31 2022-07-31 Routine Akinsipe, [facility] 1.2.884.316 [id number] Univers 11:00:00 11:56:32 Mario Bean HIGH FREQUENCY MILL OPERATOR 350.1.13.10 ity of Visit [facility] 4.2.7.2.686 Chris as MATERNAL [id number] Med ical & [address] 2022-07-30 2022-07-30 Outpatient R AKINSIPE, [facility] [id number] Univers 10:15:00 10:15:00 MARIO ity o f [facility] [place] 2022-07-25 2022-07-25 Outpatient R AKINSIPE, [facility] [id number] Univers 08:15:00 08:15:00 MARIO ity o f [facility] [place] 2022-07-11 2022-07-11 Routine Akinsipe, [facility] 1.2.717.901 [id number] Univers 08:00:00 08:15:00 Mario C HIGH FREQUENCY MILL OPERATOR 350.1.13.10 ity of Visit REGIONAL 4.2.7.2.686 Chris as MATERNAL [id number] [address] 2022-07-11 2022-07-11 Outpatient R AKINSIPE, [facility] [id number] Univers 08:00:00 08:00:00 MARIO ity o f [facility] [place] 2022-06-27 2022-06-27 Outpatient R AKINSIPE, [facility] [id number] Univers 10:45:00 12:06:51 MARIO ity o [facility] 2022-06-27 2022-06-27 Routine Akinsipe, [facility] 1.2.980.014 [id number] Univers 10:45:00 12:06:51 Mario C HIGH FREQUENCY MILL OPERATOR 350.1.13.10 ity of Visit REGIONAL 4.2.7.2.686 Chris as MATERNAL [id number] [facility] & [address] 2022-06-13 2022-06-13 Outpatient R AKINSIPE, [facility] [id number] Univers 09:45:00 10:45:44 MARIO ity o [facility] 2022-06-13 2022-06-13 Routine Akinsipe, [facility] 1.2.601.623 [id number] Univers 09:45:00 10:45:44 Mario C HIGH FREQUENCY MILL OPERATOR 350.1.13.10 ity of Visit REGIONAL 4.2.7.2.686 Chris as MATERNAL [id number] [facility] ical & CHILD 107 [facility] 2022-06-11 2022-06-11 Telephone Maria Victoriavidya [facility] 1.2.840.114 [id number] Univers 00:00:00 00:00:00 Mario Bean HIGH FREQUENCY MILL OPERATOR 350.1.13.10 ity of [facility] 4.2.7.2.686 Chris as MATERNAL [id number] [facility] & CHILD [address] [place] [address] 2022-06-09 2022-06-10 Outpatient X BHARTI DUARTE [facility] MICHAEL [id number] Univers 14:13:00 10:10:00 ity [facility] 2022-06-09 2022-06-10 Emergency Asher Leon [facility] 1.2.840 .114 [id number] Univers 14:13:00 10:10:00 Bharti Duarte [place] 350.1.13.10 ity [facility] 4.2.7.2.686 [facility] [id number] [facility] [address] [place] 2022-06-09 2022-06-09 Orders Doctor BRIAN 1.2.840.114 [id number] Univers 00:00:00 00:00:00 Only Unassigned, [place] 350.1.13.10 ity of [place] [facility] 4.2.7.2.686 Chris as [id number] [facility] [address] [place] 2022-05-25 2022-05-25 Multicultural Manager 1, [facility] Room [facility] 1.2. 840.114 [id number] Univers 11:15:00 11:51:18 Visit Mark Freed HIGH FREQUENCY MILL OPERATOR 350.1.13.10 ity of [facility] 4.2.7.2.686 Chris as MATERNAL [id number] [facility] ical & CHILD [address] [facility] 2022-05-25 2022-05-25 Outpatient P [facility] [id number] Univers 11:15:00 11:15:00 ity [facility] 2022-05-25 2022-05-25 Outpatient P ABDIAZIZ [facility] [id number] Univers 11:15:00 11:15:00 MARK ity [facility] 2022-05-25 2022-05-25 Abstract Sebastian, [facility] 1.2.840.114 [id number] Univers 00:00:00 00:00:00 Mario C HIGH FREQUENCY MILL OPERATOR 350.1.13.10 ity of REGIONAL 4.2.7.2.686 Chris as MATERNAL [id number] [facility] ical & CHILD [address] [place] [address] 2022-05-23 2022-05-23 Outpatient R MARIA VICTORIAPE, [facility] [id number] Univers 10:45:00 11:21:35 MARIO ity o f [facility] [place] 2022-05-23 2022-05-23 [facility] 1.2.440.235 [id number] Univers 10:45:00 11:21:35 Mario C HIGH FREQUENCY MILL OPERATOR 350.1.13.10 ity of Visit REGIONAL 4.2.7.2.686 Chris as MATERNAL [id number] [facility] & CHILD [address] [place] [address] 2022-04-23 2022-04-23 Outpatient R SEBASTIAN, [facility] [id number] Univers 12:45:00 13:35:43 MARIO ity o f [facility] [place] 2022-04-23 2022-04-23 [facility] 1.2.008.625 [id number] Univers 12:45:00 13:35:43 Mario C HIGH FREQUENCY MILL OPERATOR 350.1.13.10 ity of Visit REGIONAL 4.2.7.2.686 Chris as MATERNAL [id number] [facility] & CHILD [address] [place] [address] 2022-04-19 2022-04-19 Outpatient R AKINSIPE, [facility] [id number] Univers 08:00:00 08:00:00 MARIO ity o f [facility] [place] 2022-04-18 2022-04-18 [facility] 1.2.840.114 [id number] Univers 00:00:00 00:00:00 Mario C HIGH FREQUENCY MILL OPERATOR 350.1.13.10 ity of REGIONAL 4.2.7.2.686 Chris as MATERNAL [id number] [facility] & CHILD [address] [place] [address] 2022-04-13 2022-04-13 Multicultural Manager 2, [facility] Us Room UNIVERSIT 1 .2.840.114 [id number] Univers 10:45:00 12:00:00 Visit Charlie Newton Y GABINO 350.1 .13.10 ity of [place] [id number] [address] 2022-04-13 2022-04-13 Outpatient P AMAN [facility] [id number] Univers 10:45:00 10:45:00 CHASEY ity [facility] 2022-03-22 2022-03-22 Outpatient R SEBASTIAN, [facility] [id number] Univers 08:00:00 08:50:44 MARIO ity o f [facility] [place] 2022-03-22 2022-03-22 Routine Akintamie, [facility] 1.2.314.997 [id number] Univers 08:00:00 08:50:44 Mario C HIGH FREQUENCY MILL OPERATOR 350.1.13.10 ity of Visit REGIONAL 4.2.7.2.686 Chris as MATERNAL [id number] Med ical & CHILD [address] [place] [address] 2022-02-22 2022-02-22 Outpatient R SEBASTIAN, [facility] [id number] Univers 08:00:00 08:37:51 MARIO ity o f [facility] 2022-02-22 2022-02-22 Routine Akintamie, [facility] 1.2.537.068 [id number] Univers 08:00:00 08:37:51 Mario C HIGH FREQUENCY MILL OPERATOR 350.1.13.10 ity of Visit REGIONAL 4.2.7.2.686 Chris as MATERNAL [id number] [facility] ical & CHILD [address] [place] [address] 2022-02-21 2022-02-21 Abstract Sebastian, [facility] 1.2.840.114 [id number] Univers 00:00:00 00:00:00 Mario C HIGH FREQUENCY MILL OPERATOR 350.1.13.10 ity of REGIONAL 4.2.7.2.686 Chris as MATERNAL [id number] Med ical & CHILD 107 [facility] 2022-02-20 2022-02-20 Outpatient R HI [facility] [id number] Univers 12:15:00 12:15:00 ONIEL kim [facility] 2022-02-20 2022-02-20 Multicultural Manager Lab, [facility] 1.2.840. 114 [id number] Univers 12:15:00 12:15:00 Visit Sandra Restrepo HIGH FREQUENCY MILL OPERATOR 350.1.13.10 ity Hi Oniel [facility] 4.2.7.2.686 [place] MATERNAL [id number] [facility] ical & CHILD 125 [facility] 2022-02-20 2022-02-20 Multicultural Manager 1, [facility] 1.2. 840.114 [id number] Univers 11:15:00 12:00:00 Visit Sandra Restrepo HIGH FREQUENCY MILL OPERATOR 350.1.13.10 ity [facility] 4.2.7.2.686 Chris as MATERNAL [id number] [facility] ical & CHILD 369 [facility] 2022-02-09 2022-02-09 Abstract Sebastian [facility] 1.2.840.114 [id number] Univers 00:00:00 00:00:00 Mario Bean HIGH FREQUENCY MILL OPERATOR [facility].1.13.10 [facility] 4.2.7.2.686 Chris as MATERNAL [id number] [facility] ical & CHILD [address] [place] [address] 2022-02-08 2022-02-08 Outpatient P [facility] [id number] Univers 11:00:00 11:00:00 [facility] 2022-02-08 2022-02-08 Outpatient P [facility] [id number] Univers 11:00:00 11:00:00 [facility] 2022-02-06 2022-02-06 Outpatient P KEKE [facility] [id number] Univers 12:00:00 12:00:00 BIBIANA mccormick [facility] 2022-02-06 2022-02-06 Multicultural Manager Lab, [facility] 1.2.840. 114 [id number] Univers 12:00:00 12:00:00 Visit JeffersonagathaBibiana Alphonso HIGH FREQUENCY MILL OPERATOR 350.1.13.10 ity of REGIONAL 4.2.7.2.686 Chris as MATERNAL [id number] Med ical & CHILD 125 [facility] 2022-02-06 2022-02-06 Multicultural Manager 1Bashir Room [facility] 1.2. 840.114 [id number] Univers 11:15:00 11:32:16 Visit Lelo Chowdaryyaya Maza HIGH FREQUENCY MILL OPERATOR 350.1. 13.10 ity of REGIONAL 4.2.7.2.686 Chris as MATERNAL [id number] [facility] CHILD [address] [place] [address] 2022-01-25 2022-01-25 Outpatient R [facility] [id number] Univers 08:00:00 08:42:50 MARIO kim o f [facility] 2022-01-25 2022-01-25 Routine [facility] [place] [facility] 1.2.738.292 [id number] Univers 08:00:00 08:42:50 Mario C HIGH FREQUENCY MILL OPERATOR 350.1.13.10 ity of Visit REGIONAL 4.2.7.2.686 Chris as MATERNAL [id number] [facility] & CHILD [address] [place] [address] 2022-01-25 2022-01-25 Outpatient R [facility] [id number] Univers 08:00:00 08:00:00 MARIOMARTHA kim o f [facility] 2022-01-08 2022-01-08 Telephone [facility] [place] [facility] 1.2.840.114 [id number] Univers 00:00:00 00:00:00 Mario C HIGH FREQUENCY MILL OPERATOR 350.1.13.10 ity of REGIONAL 4.2.7.2.686 Chris as MATERNAL [phone] [facility] & CHILD [address] [place] [address] 2022-01-08 2022-01-08 Abstract [facility] [place] [facility] 1.2.840.114 [id number] Univers 00:00:00 00:00:00 Mario C HIGH FREQUENCY MILL OPERATOR 350.1.13.10 ity of REGIONAL 4.2.7.2.686 Chris as MATERNAL [phone] [facility] & CHILD [address] [place] [address] 2022-01-08 2022-01-08 Orders Doctor TORRES 1.2.840.114 [id number] Univers 00:00:00 00:00:00 Only Unassigned, AZALEA 350.1.13.10 ity of [place] [facility] 4.2.7.2.686 Chris as [phone] [address] 2021-12-29 2021-12-29 Patient [facility] [id number] Univers 00:00:00 00:00:00 Secure Msg Mario C HIGH FREQUENCY MILL OPERATOR 350.1.13.10 ity of REGIONAL 4.2.7.2.686 Chris as MATERNAL [id number] [facility] & CHILD [address] [place] [address] 2021-12-29 2021-12-29 Telephone [facility] [place] [facility] 1.2.840.114 [id number] Univers 00:00:00 00:00:00 Mario C HIGH FREQUENCY MILL OPERATOR 350.1.13.10 ity of REGIONAL 4.2.7.2.686 Chris as MATERNAL [phone] [facility] & CHILD [address] [place] [address] 2021-12-28 2021-12-28 [facility] [id number] Univers 13:30:00 15:09:24 MARIO ity o f [facility] 2021-12-28 2021-12-28 Initial [facility] [id number] Univers 13:30:00 15:09:24 Amrio C HIGH FREQUENCY MILL OPERATOR 350.1.13.10 ity of Visit REGIONAL 4.2.7.2.686 Chris as MATERNAL [phone] [facility] & CHILD [address] [place] [address] 2021-12-28 2021-12-28 Outpatient R [facility] [id number] Univers 13:00:00 14:12:05 MARIO kim o f [facility] 2021-12-28 2021-12-28 Orders Doctor TORRES 1.2.840.114 [id number] Univers 00:00:00 00:00:00 Only Unassigned, AZALEA 350.1.13.[address] [facility] 4.2.7.2.686 [facility] [id number] [facility] [address] 2020-11-28 2020-11-28 Emergency Alessio Lee [facility] 1.2.840.114 [id number] Univers 15:00:00 16:30:00 Mireya [place] 350.1.13.10 i ty [facility] 4.2.7.2.686 [facility] [phone] [facility] [address] 2020-11-28 2020-11-28 Emergency X Alessio LEE [facility] ERT [id number] Univers 15:00:00 15:00:00 ity [facility] 2020-11-17 2020-11-17 Emergency Marsha Do Krystal [facility] 1.2.8 40.114 [id number] Univers 21:47:00 22:46:00 Nunu Butler [place] 350.1.13.10 ity [facility] 4.2.7.2.686 [facility] [phone] [address] 2020-11-17 2020-11-17 Emergency X [facility] ERT [id number] Univers 21:36:00 21:36:00 [facility] Results Test Description Test Time Test Comments Results Result Comments Source POCT URINALYSIS W SPECIFIC GRAVITY 2022-08-27 15:49:00 Test Item Value Reference [place] Interpretation Comme nts POCT U SP GRAV (test code = 3255) . 1.005-1.025 POCT PH U (test code = 3254) . 5-8 POCT U LEUK EST (test code = 3263) . Negative - Negative POCT U NIT (test code = 3262) . Negative - Negative POCT U PROT (test code = 3259) . Negative - Negative POCT U GLU (test code = 3256) . Negative - Negative POCT U KETONE (test code = 3258) . Negative - Negative POCT U UROBILI (test code = 3260) . 0.2-1 POCT U BILI (test code = 3261) . Negative - Negative POCT U BLD (test code = 3257) . Negative - Negative POCT U COLOR (test code = 3266) . POCT U APPEAR (test code = 3267) . [facility] (D) IMMUNE [id number] 00:55:21 Test Item Value Reference [place] Interpretation Comments RHIG CANDIDATE? No- see comment Patient i s not a (test code = candidate for R hIg- 5055) Patient is Rh Positive.Perfor med at [facility] Laboratory [facility] Blood [address] [place], [place] [address]Toll Free: [phone] A No. [id number] [facility] (D) IMMUNE [id number] 00:55:21 Test Item Value Reference [place] Interpretation Comments RHIG CANDIDATE? No- see comment Patient i s not a (test code = candidate for R hIg- 5055) Patient is Rh Positive.Perfor med at [facility] Blood [address] [place], [place] [address]Toll Free: [phone] A No. [id number] [facility] [id number] 02:29:24 Test Item Value Reference [place] Interpretation Comments LDH (test code = 7430481301) 153 U/L 120-246 Lab Interpretation (test code = Normal 13994-0) [facility] [id number] 02:29:24 Test Item Value Reference [place] Interpretation Comments LDH (test code = 6281510756) 153 U/L 120-246 Lab Interpretation (test code = Normal 72881-5) [facility] OR [place] ONLY - [id number] 01:49:50 Test Item Value Reference [place] Interpretation Comments RPR (Qualitative) (test code = Nonreactive Nonreactive 21083-8) Lab Interpretation (test code = Normal 69100-9) [facility] OR [place] ONLY - [id number] 01:49:50 Test Item Value Reference [place] Interpretation Comments RPR (Qualitative) (test code = Nonreactive Nonreactive 97793-4) Lab Interpretation (test code = Normal 91627-9) [facility] [id number] 00:28:19 Test Item Value Reference [place] Interpretation Comments URIC ACID (test code = 1460234230) 3.4 mg/dL 2.9-6 Lab Interpretation (test code = Normal 36521-1) [facility] AMINO TRANSFERASE([id number] 00:28:19 Test Item Value Reference [place] Interpretation Comments ALTv (test code = 1742-6) 15 U/L 5-35 Lab Interpretation (test code = Normal 52522-2) [facility] (ASPARTATE AMINO TRANSFER)2022-08-06 00:28:19 Test Item Value Reference [place] Interpretation Comments AST(SGOT) (test code = 3132616698) 28 U/L 13-40 Lab Interpretation (test code = Normal 43034-0) [facility]2022-10-10 00:28:19 Test Item Value Reference [place] Interpretation Comments CREATININE (test code 0.52 mg/dL 0.5-1.04 = 9633792178) eGFR (test code = mL/min/1.73m2 6926088748) NATHANIEL (test code = NATHANIEL) Association of Glomerular Filtration Rate (GFR) and Staging of Kidney Disease* + + +- +| GFR (mL/min/1.73 m2) ?| With Kidney Damage ?| ?Without Kidney Damage+ ------+ ----+ ------+| ?>90 ?| ?Stage one ?| ? Normal ?+ -+ + -+| ?60-89 ?| ?Stage two ?| ? Decreased GFR ? + + +- +| ?30-59 ?| ?Stage three ?| ? Stage three ? + + +- +| ?15-29 ?| ?Stage four ? | ? Stage four ?+ -+ + -+| ?<15 (or dialysis) ? ?| ?Stage five ? | ? Stage five ?+ -+ + -+ *Each stage assumes the associated GFR level has been in effect for at least three months. ?Stages 1 to 5, with or without kidney disease, indicate chronic kidney disease. Notes: Determination of stages one and two (with eGFR >59mL/min/1.73 m2) requires estimation of kidney damage for at least three months as defined by structural or functional abnormalities of the kidney, manifested by either:Pathological abnormalities or Markers of kidney damage (including abnormalities in the composition of the blood or urine or abnormalities in imaging tests). [facility] [id number] 00:28:19 Test Item Value Reference [place] Interpretation Comments URIC ACID (test code = 4949349610) 3.4 mg/dL 2.9-6 Lab Interpretation (test code = Normal 15972-4) [facility] AMINO TRANSFERASE([id number] 00:28:19 Test Item Value Reference [place] Interpretation Comments ALTv (test code = 1742-6) 15 U/L 5-35 Lab Interpretation (test code = Normal 70052-0) [facility] (ASPARTATE AMINO TRANSFER)2022-08-06 00:28:19 Test Item Value Reference [place] Interpretation Comments AST(SGOT) (test code = 9963938981) 28 U/L 13-40 Lab Interpretation (test code = Normal 95696-8) [facility]2022-10-10 00:28:19 Test Item Value Reference [place] Interpretation Comments CREATININE (test code 0.52 mg/dL 0.5-1.04 = 5511823111) eGFR (test code = mL/min/1.73m2 5920738437) NATHANIEL (test code = NATHANIEL) Association of Glomerular Filtration Rate (GFR) and Staging of Kidney Disease* + + +- +| GFR (mL/min/1.73 m2) ?| With Kidney Damage ?| ?Without Kidney Damage+ ------+ ----+ ------+| ?>90 ?| ?Stage one ?| ? Normal ?+ -+ + -+| ?60-89 ?| ?Stage two ?| ? Decreased GFR ? + + +- +| ?30-59 ?| ?Stage three ?| ? Stage three ? + + +- +| ?15-29 ?| ?Stage four ? | ? Stage four ?+ -+ + -+| ?<15 (or dialysis) ? ?| ?Stage five ? | ? Stage five ?+ -+ + -+ *Each stage assumes the associated GFR level has been in effect for at least three months. ?Stages 1 to 5, with or without kidney disease, indicate chronic kidney disease. Notes: Determination of stages one and two (with eGFR >59mL/min/1.73 m2) requires estimation of kidney damage for at least three months as defined by structural or functional abnormalities of the kidney, manifested by either:Pathological abnormalities or Markers of kidney damage (including abnormalities in the composition of the blood or urine or abnormalities in imaging tests). [facility] B Surface [id number] 22:38:34 Test Item Value Reference [place] Interpretation Comments HBsAg Semi-Quantitative (test code = Negative Negative 5195-3) [facility] B Surface [id number] 22:38:34 Test Item Value Reference [place] Interpretation Comments HBsAg Semi-Quantitative (test code = Negative Negative 5195-3) [facility] and Screen - ONCE [id number] 20:34:51 Test Item Value Reference [place] Interpretation Comments ABO & RH (test code O Positive Performe d at [facility] = 20) Laboratory [facility] [place], [place] [address]Toll Free: [phone] A No. [id number] IAT (test code = Negative Performed a t [facility] 1185) Laboratory [facility] [place], [place] [address]Toll Free: [phone] A No. [id number] [facility] and Screen - ONCE [id number] 20:34:51 Test Item Value Reference [place] Interpretation Comments ABO & RH (test code O Positive Performe d at [facility] = 20) Laboratory [facility] [place], [place] [address]Toll Free: [phone] A No. [id number] IAT (test code = Negative Performed a t [facility] 1185) Laboratory [facility] [place], [place] [address]Toll Free: [phone] A No. [id number] [facility] 1/2 AG-AB WITH [id number] 19:54:48 Test Item Value Reference [place] Interpretation Comments HIV Negative Negative Semi-quantitative (test code = 07762-4) NATHANIEL (test code = Non-reactive for HIV-1 NATHANIEL) antigen and HIV-1/HIV-2 antibodies. ?No laboratory evidence of HIV infection. ?Repeat in 2-4 weeks if acute HIV infection is suspected. [facility] 1/2 AG-AB WITH [id number] 19:54:48 Test Item Value Reference [place] Interpretation Comments HIV Negative Negative Semi-quantitative (test code = 79269-3) NATHANIEL (test code = Non-reactive for HIV-1 NATHANIEL) antigen and HIV-1/HIV-2 antibodies. ?No laboratory evidence of HIV infection. ?Repeat in 2-4 weeks if acute HIV infection is suspected. [facility] with [id number] 18:14:27 Test Item Value Reference [place] Interpretation Comments WBC (test code = See_Comment [Automated 6690-2) message] The sy stem which [...] as normal/abnormal . HGB (test code = 9.9 g/dL 11.6-15 L 718-7) HCT (test code = 31.0 % 35.7-45.2 L 4544-3) MCV (test code = 72.8 fL 80.6-95.5 L 787-2) MCH (test code = 23.2 pg 25.9-32.8 L 785-6) MCHC (test code = 31.9 g/dL 31.6-35.1 786-4) RDW-SD (test code = 39.1 fL 39-49.9 04767-1) RDW-CV (test code = 14.9 % 12-15.5 788-0) PLT (test code = See_Comment H [Automated 777-3) message] The sy stem which generated this result transmitted reference range : 166 - 358 10*3/ ?L. The reference r sundeep was not used to interpret this result as normal/abnormal . MPV (test code = 9.6 fL 9.5-12.9 92943-2) NRBC/100 WBC (test See_Comment [Automat ed code = 8534813210) message] The system which generated this result transmitted reference range : 0.0 - 10.0 /100 WBCs. The refer ence range was not u sed to interpret th is result as normal/abnormal . NRBC x10^3 (test code See_Comment [Auto mated = 5476948681) message] The s ystem which generated this result transmitted reference range : 10*3/?L. The reference range was not used to interpret this result as normal/abnormal . GRAN MAT (NEUT) % 75.8 % (test code = 770-8) IMM GRAN % (test code 0.40 % = 1255266177) LYMPH % (test code = 18.0 % 736-9) MONO % (test code = 5.1 % 5905-5) EOS % (test code = 0.3 % 713-8) BASO % (test code = 0.4 % 706-2) GRAN MAT x10^3(ANC) 7.67 10*3/uL 1.88-7.09 H (test code = 7387647712) IMM GRAN x10^3 (test 0.04 10*3/uL 0-0.06 code = 1279629078) LYMPH x10^3 (test code 1.82 10*3/uL 1.32-3.29 = 731-0) MONO x10^3 (test code 0.52 10*3/uL 0.33-0.92 = 742-7) EOS x10^3 (test code = 0.03 10*3/uL 0.03-0.39 711-2) BASO x10^3 (test code 0.04 10*3/uL 0.01-0.07 = 704-7) Lab Interpretation Abnormal (test code = 70170-1) [facility] with [id number] 18:14:27 Test Item Value Reference [place] Interpretation Comments WBC (test code = See_Comment [Automated 6690-2) message] The sy stem which [...] as normal/abnormal . HGB (test code = 9.9 g/dL 11.6-15 L 718-7) HCT (test code = 31.0 % 35.7-45.2 L 4544-3) MCV (test code = 72.8 fL 80.6-95.5 L 787-2) MCH (test code = 23.2 pg 25.9-32.8 L 785-6) MCHC (test code = 31.9 g/dL 31.6-35.1 786-4) RDW-SD (test code = 39.1 fL 39-49.9 50202-8) RDW-CV (test code = 14.9 % 12-15.5 788-0) PLT (test code = See_Comment H [Automated 777-3) message] The sy stem which generated this result transmitted reference range : 166 - 358 10*3/ ?L. The reference r sundeep was not used to interpret this result as normal/abnormal . MPV (test code = 9.6 fL 9.5-12.9 84258-0) NRBC/100 WBC (test See_Comment [Automat ed code = 6977679111) message] The system which generated this result transmitted reference range : 0.0 - 10.0 /100 WBCs. The refer ence range was not u sed to interpret th is result as normal/abnormal . NRBC x10^3 (test code See_Comment [Auto mated = 4237187075) message] The s ystem which generated this result transmitted reference range : 10*3/?L. The reference range was not used to interpret this result as normal/abnormal . GRAN MAT (NEUT) % 75.8 % (test code = 770-8) IMM GRAN % (test code 0.40 % = 5897317432) LYMPH % (test code = 18.0 % 736-9) MONO % (test code = 5.1 % 5905-5) EOS % (test code = 0.3 % 713-8) BASO % (test code = 0.4 % 706-2) GRAN MAT x10^3(ANC) 7.67 10*3/uL 1.88-7.09 H (test code = 4444132166) IMM GRAN x10^3 (test 0.04 10*3/uL 0-0.06 code = 5102068958) LYMPH x10^3 (test code 1.82 10*3/uL 1.32-3.29 = 731-0) MONO x10^3 (test code 0.52 10*3/uL 0.33-0.92 = 742-7) EOS x10^3 (test code = 0.03 10*3/uL 0.03-0.39 711-2) BASO x10^3 (test code 0.04 10*3/uL 0.01-0.07 = 704-7) Lab Interpretation Abnormal (test code = 01390-8) [facility] URINALYSIS W SPECIFIC [id number] 16:58:00 Test Item Value Reference [place] Interpretation Comments POCT U SP GRAV (test code = 3255) . 1.005-1.025 POCT PH U (test code = 3254) . 5-8 POCT U LEUK EST (test code = 3263) . Negative - Negative POCT U NIT (test code = 3262) . Negative - Negative POCT U PROT (test code = 3259) 2+ Negative - Negative POCT U GLU (test code = 3256) 1+ Negative - Negative POCT U KETONE (test code = 3258) . Negative - Negative POCT U UROBILI (test code = 3260) . 0.2-1 POCT U BILI (test code = 3261) . Negative - Negative POCT U BLD (test code = 3257) . Negative - Negative POCT U COLOR (test code = 3266) . POCT U APPEAR (test code = 3267) [facility] URINALYSIS W SPECIFIC [id number] 13:23:00 Test Item Value Reference [place] Interpretation Comments POCT U SP GRAV (test code = 3255) . 1.005-1.025 POCT PH U (test code = 3254) . 5-8 POCT U LEUK EST (test code = 3263) . Negative - Negative POCT U NIT (test code = 3262) . Negative - Negative POCT U PROT (test code = 3259) 1+ Negative - Negative POCT U GLU (test code = 3256) Neg Negative - Negative POCT U KETONE (test code = 3258) . Negative - Negative POCT U UROBILI (test code = 3260) . 0.2-1 POCT U BILI (test code = 3261) . Negative - Negative POCT U BLD (test code = 3257) . Negative - Negative POCT U COLOR (test code = 3266) . POCT U APPEAR (test code = 3267) [facility]"
--- NOTE | 2023-06-23 08:41 | ER ---
Nurse's Notes [facility] Name: Lindsay Hidalgo Age: 22 yrs Sex: Female : 2000 Arrival Date: 06/23/2023 Time: 07:26 Bed 11 Private MD: Diagnosis: Acute serous otitis media, left ear;Acute upper respiratory infection, unspecified Presentation: 06/23 07:57 Chief complaint: Patient states: Left ear pain, sore throat. Coronavirus screen: Client jl7 presents with at least one sign or symptom that may indicate coronavirus-19. Ebola Screen: No symptoms or risks identified at this time. Initial Sepsis Screen: Does the patient meet any 2 criteria? No. Patient's initial sepsis screen is negative. Does the patient have a suspected source of infection? No. Patient's initial sepsis screen is negative. Risk Assessment: Do you want to hurt yourself or someone else? Patient reports no desire to harm self or others. Onset of symptoms was June 21, 2023. 07:57 Method Of Arrival: Ambulatory [facility] 07:57 Acuity: XIOMARA 4 jl7 Triage Assessment: 07:58 General: Appears in no apparent distress. uncomfortable, Behavior is calm, cooperative, jl7 appropriate for age. Pain: Complains of pain in left ear Pain currently is 9 out of 10 on a pain scale. EENT: Tympanic membrane clear on right ear and left ear Ear canal clear on right ear and left ear. Neuro: Level of Consciousness is awake, alert, obeys commands, Oriented to person, place, time, situation. Cardiovascular: Patient's skin is warm and dry. Respiratory: No deficits noted. Derm: Skin is pink, warm \T\ dry. Historical: - Allergies: 07:58 No Known Allergies; jl7 - Home Meds: 07:58 None [Active]; jl7 - PMHx: 07:58 None; jl7 - PSHx: 07:58 None; jl7 - Immunization history:: Adult Immunizations unknown. - Social history:: Smoking status: Patient denies any tobacco usage or history of. Patient uses street drugs, marijuana. Vital Signs: 07:57 BP 133 / 89; Pulse 99; Resp 17; Temp 97.9; Pulse Ox 99% ; Weight 88.45 kg; Height 5 ft. jl7 0 in. ; Pain 9/10; 09:19 Pulse 90; Resp 15; Temp 98; Pulse Ox 100% ; jl7 07:57 Body Mass Index 38.08 (88.45 kg, 152.4 cm) jl7 07:57 Pain Scale: Adult jl7 ED Course: 07:28 Patient arrived in ED. mr 07:30 Brian Coffman MD is Attending Physician. jake 07:57 Annette Platt, RN is Primary Nurse. jl7 07:58 Triage completed. jl7 07:58 Arm band placed on right wrist. jl7 08:40 Fela Rodriguez MD is Referral Physician. jake 08:45 Patient has correct armband on for positive identification. Provided Education on: Use jl7 of call sanches. 08:45 No provider procedures requiring assistance completed. Patient did not have IV access jl7 during this emergency room visit. Administered Medications: 08:52 Drug: Ibuprofen PO 800 mg Route: PO; jl7 08:52 Follow up: Response: Medication administered at discharge. jl7 08:52 Drug: Dexamethasone IM 10 mg Route: IM; Site: right deltoid; jl7 08:52 Follow up: Response: Medication administered at discharge. jl7 08:59 Not Given (Patient Refused): Rocephin (cefTRIAXone) IM 1 grams IM once jl7 08:59 Drug: Amoxicillin-Clavulanate PO 875 mg Route: PO; jl7 08:59 Follow up: Response: Medication administered at discharge. jl7 08:59 Follow up: Response: Medication administered at discharge. jl7 Medication: 08:45 VIS not applicable for this client. jl7 Outcome: 08:40 Discharge ordered by . [facility] 09:19 Discharged to home ambulatory. jl7 09:19 Condition: stable 09:19 Discharge instructions given to patient, Instructed on discharge instructions, follow up and referral plans. medication usage, Demonstrated understanding of instructions, follow-up care, medications, Prescriptions given X 3. 09:20 Patient left the ED. jl7 Signatures: Brian Coffman MD MD cha Rivera, Mary mr Annette Platt, RN RN jl7 Corrections: (The following items were deleted from the chart) 07:59 07:58 Home Meds: Unable to obtain; jl7 jl7
--- NOTE | 2023-06-23 08:41 | EDPHYS ---
Physician Documentation [facility] Name: Lindsay Hidalgo Age: 22 yrs Sex: Female : 2000 Arrival Date: 06/23/2023 Time: 07:26 Bed 11 Private MD: ED Physician Brian Coffman HPI: 06/23 08:35 This 22 yrs old Female presents to ER via Ambulatory with complaints of Ear jkae Pain. 08:35 The patient presents with pain, tenderness. The complaints affect the left ear. Onset: jake The symptoms/episode began/occurred 3 day(s) ago. Modifying factors: The symptoms are alleviated by nothing, the symptoms are aggravated by nothing. Associated signs and symptoms: The patient has no apparent associated signs or symptoms. Severity of symptoms: At their worst the symptoms were moderate in the emergency department the symptoms are unchanged. The patient has not experienced similar symptoms in the past. Historical: - Allergies: 07:58 No Known Allergies; jl7 - Home Meds: 07:58 None [Active]; jl7 - PMHx: 07:58 None; jl7 - PSHx: 07:58 None; jl7 - Immunization history:: Adult Immunizations unknown. - Social history:: Smoking status: Patient denies any tobacco usage or history of. Patient uses street drugs, marijuana. ROS: 08:36 Constitutional: Negative for fever, chills, and weight loss, Eyes: Negative for injury, jake pain, redness, and discharge, Neck: Negative for injury, pain, and swelling, Cardiovascular: Negative for chest pain, palpitations, and edema, Respiratory: Negative for shortness of breath, cough, wheezing, and pleuritic chest pain, Abdomen/GI: Negative for abdominal pain, nausea, vomiting, diarrhea, and constipation, Back: Negative for injury and pain, : Negative for injury, bleeding, discharge, and swelling, MS/Extremity: Negative for injury and deformity, Skin: Negative for injury, rash, and discoloration, Neuro: Negative for headache, weakness, numbness, tingling, and seizure, Psych: Negative for depression, anxiety, suicide ideation, homicidal ideation, and hallucinations, Allergy/Immunology: Negative for hives, rash, and allergies, Endocrine: Negative for neck swelling, polydipsia, polyuria, polyphagia, and marked weight changes, Hematologic/Lymphatic: Negative for swollen nodes, abnormal bleeding, and unusual bruising. 08:36 ENT: Positive for ear pain, rhinorrhea, sinus congestion. Exam: 08:36 Constitutional: This is a well developed, well nourished patient who is awake, alert, jake and in no acute distress. Head/Face: Normocephalic, atraumatic. Eyes: Pupils equal round and reactive to light, extra-ocular motions intact. Lids and lashes normal. Conjunctiva and sclera are non-icteric and not injected. Cornea within normal limits. Periorbital areas with no swelling, redness, or edema. Neck: Trachea midline, no thyromegaly or masses palpated, and no cervical lymphadenopathy. Supple, full range of motion without nuchal rigidity, or vertebral point tenderness. No Meningismus. Chest/axilla: Normal chest wall appearance and motion. Nontender with no deformity. No lesions are appreciated. Cardiovascular: Regular rate and rhythm with a normal S1 and S2. No gallops, murmurs, or rubs. Normal PMI, no JVD. No pulse deficits. Respiratory: Lungs have equal breath sounds bilaterally, clear to auscultation and percussion. No rales, rhonchi or wheezes noted. No increased work of breathing, no retractions or nasal flaring. Abdomen/GI: Soft, non-tender, with normal bowel sounds. No distension or tympany. No guarding or rebound. No evidence of tenderness throughout. Back: No spinal tenderness. No costovertebral tenderness. Full range of motion. Skin: Warm, dry with normal turgor. Normal color with no rashes, no lesions, and no evidence of cellulitis. MS/ Extremity: Pulses equal, no cyanosis. Neurovascular intact. Full, normal range of motion. Neuro: Awake and alert, GCS 15, oriented to person, place, time, and situation. Cranial nerves II-XII grossly intact. Motor strength 5/5 in all extremities. Sensory grossly intact. Cerebellar exam normal. Normal gait. Psych: Awake, alert, with orientation to person, place and time. Behavior, mood, and affect are within normal limits. 08:36 ENT: TM's: dullness, on the left, erythema, that is moderate, on the left, fluid levels, is not appreciated, loss of bony landmarks, that is moderate, on the left, rupture, is not appreciated. Vital Signs: 07:57 BP 133 / 89; Pulse 99; Resp 17; Temp 97.9; Pulse Ox 99% ; Weight 88.45 kg; Height 5 ft. jl7 0 in. ; Pain 9/10; 09:19 Pulse 90; Resp 15; Temp 98; Pulse Ox 100% ; jl7 07:57 Body Mass Index 38.08 (88.45 kg, 152.4 cm) jl7 07:57 Pain Scale: Adult jl7 MDM: 07:30 Patient medically screened. jake Administered Medications: 08:52 Drug: Ibuprofen PO 800 mg Route: PO; jl7 08:52 Follow up: Response: Medication administered at discharge. jl7 08:52 Drug: Dexamethasone IM 10 mg Route: IM; Site: right deltoid; jl7 08:52 Follow up: Response: Medication administered at discharge. jl7 08:59 Not Given (Patient Refused): Rocephin (cefTRIAXone) IM 1 grams IM once jl7 08:59 Drug: Amoxicillin-Clavulanate PO 875 mg Route: PO; jl7 08:59 Follow up: Response: Medication administered at discharge. jl7 08:59 Follow up: Response: Medication administered at discharge. jl7 Disposition Summary: 06/23/23 08:40 Discharge Ordered Location: Home [facility] Problem: new jake Symptoms: have improved jake Condition: Stable jake Diagnosis - Acute serous otitis media, left ear jake - Acute upper respiratory infection, unspecified jake Followup: jake - With: Private Physician - When: 2 - 3 days - Reason: Recheck today's complaints, Re-evaluation by your physician Followup: jake - With: Fela Rodriguez MD - When: 2 - 3 days - Reason: Recheck today's complaints, Re-evaluation by your physician Discharge Instructions: - Discharge Summary Sheet jake - Otitis Media, Adult jake - Cool Mist Vaporizer jake - Otitis Media, Adult, [id number] jake - Upper Respiratory Infection, Adult, [id number] [facility] Forms: - Medication Reconciliation Form [facility] - Thank You Letter [facility] - Antibiotic Education [facility] - Prescription Opioid Use [facility] - Patient Portal Instructions [facility] - Leadership Thank You Letter [facility] Prescriptions: - Augmentin 875-125 mg Oral Tablet - take 1 tablet by ORAL route every 12 hours for 10 days; 20 tablet; Refills: 0, [facility] Product Selection Permitted - Ibuprofen 600 mg Oral Tablet - take 1 tablet by ORAL route every 6 hours As needed take with food; 30 tablet; [facility] Refills: 0, Product Selection Permitted - Gladys-D 12 Hour 60-120 mg Oral Tablet Sustained Release 12 hr - take 1 tablet by ORAL route every 12 hours As needed; 20 tablet; Refills: 0, [facility] Product Selection Permitted - Medrol (Matt) 4 mg Oral Tablets, Dose Pack - take 1 tablet by ORAL route as directed - follow package instructions; 1 [facility] packet; Refills: 0, Product Selection Permitted Signatures: Brian Coffman MD MD cha Leal, Jahala RN RN jl7 Corrections: (The following items were deleted from the chart) 07:59 07:58 Home Meds: Unable to obtain; osito jl7
[2023-06-23] MEDS ORDERED: LIDOCAINE 1% MPF 2 ML AMPULE ONE (09:02)
[2023-06-23] MEDS ORDERED: IBUPROFEN 400 MG TAB ONE (09:02)
[2023-06-23] MEDS ORDERED: dexAMETHasone 10 MG/ML VIAL ONE (09:02)
[2023-06-23] MEDS ORDERED: CEFTRIAXONE 1000 MG/VIAL ONE (09:02)
[2023-06-23] MEDS ORDERED: AMOX/K CLAV 875 MG TAB ONE (09:08)
[2023-06-23 09:24] VITALS: BP 133/89
[2023-06-23 09:25] VITALS: TEMP 98; O2SAT 100
== END 2023-06-23 09:20 | disposition home or self-care (01) ==
LOC: ER 07:26
DX: H65.02 Acute serous otitis media, left ear (principal); J06.9 Acute upper respiratory infection, unspecified
CPT/HCPCS: 96372; 99284; J0696; J1100

== ENCOUNTER 2024-06-24 21:36 | Emergency (ER) | payer OTHER ==
--- OUTSIDE RECORDS SUMMARY | 2024-06-24 21:40 | XMS REPORT | Continuity of Care Document ---
Author Name Unknown Address [address] [place] [address] [facility] Address 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 Phone JENNIFFER CORTES Primary Care Physician Unav ailable ROLY PURVIS Attending Clinician Unavailable ROLY PURVIS Attending Clinician Unavailable JENNIFFER CORTES Attending Clinician Unavail able KRISSY CROWELL Attending Clinician Unavaila caterina Cortes [facility] + Visit, [facility] Nurse Attending Clinician Unava ilable NANCY GUTHRIE Attending Clinician Unavailable Kathy Aremnta MD Attending Clinician [phone] Nancy Guthrie MD Attending Clinician [phone] Bereket Swann MD Attending Clinician + [phone] Parag Nunez MD Attending Clinician [phone] Doctor Unassigned, [place] Attending Clinician U BHARTI Mancuso Attending Clinician Unavailable Asher Leon MD Attending Clinician [phone] Bharti Duarte MD Attending Clinician [phone] 1, [facility] Attending Clinician Unavailab Mark Koroma MD Attending Clinician [phone] MARK FREED Attending Clinician Unavailable 2, [facility] Room Attending Clinician Unavailarnoldo Newton MD, Chi Sifuentes Attending Clinician + [facility] Attending Clinician LINDSAY Huynh Attending Clinician Unavailabl e Lab, [facility] Attending Clinician Unavailable Lauro BRITO, Sandra Estrella Attending Clinician [phone] Lindsay Parra Attending Clinician [phone] BIBIANA DAVIES Attending Clinician Unavailab vinayak Davies MSN, Bibiana Werner Attending Clinician [phone] Lelo Aldana MD, Shaunna Attending Clinician + Freya CHING, Alessio Gomes Attending Clinician [phone] Alessio LEE Attending Clinician Unavailable Marsha Do DO Attending Clinician [phone] Nunu Gates Attending Clinician [phone] BHARTI DUARTE Admitting Clinician Unavailable KATHY ARMENTA Admitting Clinician Unavailable Kathy Armenta MD Admitting Clinician [phone] Bharti Duarte MD Admitting Clinician [phone] Payers Payer Name Policy Type Policy Number Effective Date Expirati on Date Source [employer] MEDICAID [id number] 2021 00:00:00 [place] [id number] 2021 00:00:00 Problems Condition Name Condition Details Condition Category Status Onset Date Resolution Date Last Treatment Date Treating Clinician Comments Source Routine follow-up Routine follow-up Disease Active 2021-10 0- 00:00: 00 [facility] Liveborn infant, of culver , born in hospital by delivery Liveborn infant, of culver , born in hospital by delivery Disease Active 2021-10 0- 00:00: 00 [facility] Premature rupture of membranes with onset of labor within 24 hours of rupture Premature rupture of membranes with onset of labor within 24 hours of rupture Disease Active 2021-10 0-09 00:00: 00 [facility] 36 weeks gestation of 36 weeks gestation of Disease Active 2021-10 0-09 00:00: 00 [facility] Vaginal bleeding in Vaginal bleeding in Disease Active 8-13 00:00: 00 [facility] Carpal tunnel syndrome during Carpal tunnel syndrome during Disease Active 7-27 00:00: 00 [facility] Nausea and vomiting in Nausea and vomiting in Disease Active 3-31 00:00: 00 [facility] Maternal morbid obesity, antepartum , third trimester Maternal morbid obesity, antepartum , third trimester Disease Active 3-03 00:00: 00 [facility] Gestationa l hypertensi on, third trimester Gestationa l hypertensi on, third trimester Disease Active 3-03 00:00: 00 [facility] Supervisio n of high-risk Supervisio n of high-risk Disease Active 3-03 00:00: 00 [facility] Obesity in Obesity in Disease Active 3-03 00:00: 00 [facility] Elevated blood pressure reading without diagnosis of hypertensi on Elevated blood pressure reading without diagnosis of hypertensi on Disease Active 3-03 00:00: 00 [facility] Allergies, Adverse Reactions, Alerts Allergy Name Allergy Type Status Severity Reaction(s) Onset Date Inactive Date Treating Clinician Comments Source NO KNOWN ALLERGIE S Drug Class Active [facility] Social History Social Habit Start Date Stop Date Quantity Comments Source ASSERTION 2021-12-09 00:00:00 [facility] Exposure to SARS-CoV-2 (event) 2022-08-16 00:00:00 2022-08-26 19:15:00 Not sure [facility] Tobacco use and exposure 2022-06-13 00:00:00 2022-06-13 00:00:00 Smokeless tobacco non-user [facility] History of Social function 2021-12-28 00:00:00 2021-12-28 00:00:00 [facility] Sex assigned at 2000 00:00:00 2000 00:00:00 [facility] Smoking Status Start Date Stop Date Source Never smoked tobacco [facility] Medications Ordered Medication Name Filled Medication Name Start Date Stop Date Current Medication? Ordering Clinician Indication Dosage Frequency Signature (SIG) Comments Components Source penicillin v potassium 500 mg tablet 03-10 00:00: 00 Yes [id number] 1000mg Take 2 tablets by mouth in the morning and 2 tablets in the evening. [facility] naproxen 375 mg tablet 03-10 00:00: 00 Yes [id number] 375mg Take 1 tablet by mouth in the morning and 1 tablet in the evening. Take with meals. [facility] ibuprofen (IBU) tablet 600 mg 2021-10 11:00: 00 Yes 600mg 600 mg, Oral, Q6H ABX, First dose on Sat08/08/22 at 0600, Until Discontinu ed, Routine [facility] acetaminoph en 325 mg tablet 2021-10 00:00: 00 Yes [id number] 650mg Take 2 tablets by mouth every 6 (six) hours as needed for Pain (scale 1-3) or Pain (scale 4-6). [facility] vitamin w/FA tablet 2021-10 00:00: 00 Yes [id number] 1{tbl} Take 1 tablet by mouth in the morning. [facility] docusate 100 mg capsule 2021-10 00:00: 00 Yes [id number] 200mg Take 2 capsules by mouth once daily as needed for Constipati on. [facility] ferrous sulfate 325 mg (65 mg iron) tablet 2021-10 00:00: 00 Yes [id number] 325mg Take 1 tablet by mouth in the morning and 1 tablet in the evening. [facility] ibuprofen 600 mg tablet 2021-10 00:00: 00 Yes [id number] 600mg Take 1 tablet by mouth every 6 (six) hours as needed (Pain). Take with food or milk. [facility] vitamin w/FA tablet 2021-10 00:00: 00 Yes [id number] 1{tbl} Take 1 tablet by mouth in the morning. [facility] HYDROcodone -acetaminop hen 5-325 mg tablet 2021-10 00:00: 00 08-16 04:59 :00 No [id number] 1{tbl} Take 1 tablet by mouth every 6 (six) hours as needed for Pain (scale 7-10) (Alternate with Ibuprofen) for up to 7 days. Indication s: acute pain [facility] gabapentin 300 mg capsule 2021-10 00:00: 00 08-14 04:59 :00 No [id number] 300mg Take 1 capsule by mouth in the morning and 1 capsule at noon and 1 capsule in the evening. Do all this for 5 days. [facility] ketorolac (TORADOL) injection 30 mg 2021-10 11:00: 00 08-08 10:59 :00 No 30mg 30 mg, Slow IV Push, Q6H ABX, 4 doses, First dose on Sat08/07/22 at 0600, Last dose on Sat08/08/22 at 0000, [facility] 650 mg 2021-10 05:00: 00 Yes 650mg 650 mg, Oral, Q6H ABX, First dose on Sat08/07/22 at 0000, Until Discontinu ed, Routine [facility] gabapentin (NEURONTIN) capsule 300 mg 2021-10 01:00: 00 Yes 300mg 300 mg, Oral, TID, First dose on Sat08/06/22 at 2000, Until Discontinu ed, Routine [facility] lactated ringers IV infusion 1,000 mL 2021-10 23:15: 00 08-07 04:22 :00 No 1000mL at 125 mL/hr, 1,000 mL, IV Infusion, ONCE, 1 dose, On Sat08/06/22 at 1815, Routine [facility] rho(D) immune globulin (RHOGAM) syringe 300 mcg 2021-10 22:42: 28 Yes 300ug 300 mcg, Intramuscu lar, ONCE, For 1 dose, Conditiona l, Routine [facility] HYDROcodone -acetaminop hen (NORCO 5) 5-325 mg tablet 1 tablet 2021-10 22:41: 48 Yes 1{tbl} 1 tablet, Oral, Q6HPRN, Starting on Sat08/06/22 at 1741, Until Discontinu ed, Routine, Pain (scale 7-10), Alternate with Ibuprofen [facility] diphenhydrA MINE (BENADRYL) injection 25 mg 2021-10 22:41: 48 Yes 25mg 25 mg, Slow IV Push, Q6HPRN, Starting on Sat08/06/22 at 1741, Until Discontinu ed, Routine, Itching [facility] diphenhydrA MINE (BENADRYL) tablet 25 mg 2021-10 22:41: 48 Yes 25mg 25 mg, Oral, Q6HPRN, Starting on Sat08/06/22 at 1741, Until Discontinu ed, Routine, Sleep, Itching [facility] ondansetron (ZOFRAN (PF)) injection 4 mg 2021-10 22:41: 48 Yes 4mg 4 mg, Slow IV Push, Q8HPRN, Starting on Sat08/06/22 at 1741, Until Discontinu ed, Routine, Nausea and Vomiting (N/V) [facility] bisacodyL (DULCOLAX) suppository 10 mg 2021-10 22:41: 48 Yes 10mg 10 mg, Rectal, QDAILYPRN, Starting on Sat08/06/22 at 1741, Until Discontinu ed, Routine, Constipati on [facility] simethicone (GAS RELIEF (SIMETHICON E)) chewable tablet 160 mg 2021-10 22:41: 48 Yes 160mg 160 mg, Oral, PC+HSPRN, Starting on Sat08/06/22 at 1741, Until Discontinu ed, Routine, Gas [facility] docusate (COLACE) capsule 200 mg 2021-10 22:41: 48 Yes 200mg 200 mg, Oral, QDAILYPRN, Starting on Sat08/06/22 at 1741, Until Discontinu ed, Routine, Constipati on [facility] magnesium hydroxide (MILK OF MAGNESIA) 400 mg/5 mL suspension 30 mL 2021-10 22:41: 48 Yes 30mL 30 mL, Oral, QDAILYPRN, Starting on Sat08/06/22 at 1741, Until Discontinu ed, Routine, Constipati on [facility] lactated ringers IV infusion 1,000 mL 2021-10 22:41: 48 Yes 1000mL at 125 mL/hr, 1,000 mL, IV Infusion, PRN, 1 dose, Starting on Sat08/06/22 at 1741, Until Discontinu ed, Routine [facility] mupirocin (BACTROBAN OINT) 2 % skin ointment 2021-10 20:20: 00 Yes Intra-op [facility] sodium chloride 0.9 % irrigation solution 2021-10 20:16: 00 Yes PRN, Starting on Sat08/06/22 at 1516, Until Discontinu ed, Intra-op [facility] acetaminoph en ADULT (OFIRMEV) injection 2021-10 19:58: 00 08-06 20:34 :42 No IV Infusion, Administer over 15 Minutes, ONCE INTRA PROCEDURE, Starting on Sat08/06/22 at 1458, Until Sat08/06/22 at 1534, Routine, Intra-op [facility] propofoL IV infusion 2021-10 19:52: 00 08-06 20:34 :42 No IV Infusion, ONCE INTRA PROCEDURE, Starting on Sat08/06/22 at 1452, Until Sat08/06/22 at 1534, Routine, Intra-op [facility] azithromyci n (ZITHROMAX) injection 2021-10 19:43: 00 08-06 20:34 :42 No IV Piggyback, ONCE INTRA PROCEDURE, Starting on Sat08/06/22 at 1443, Until Sat08/06/22 at 1534, FLACO, Intra-op [facility] morpHINE PF (DURAMORPH- PF) injection 2021-10 19:39: 00 08-06 20:34 :42 No Epidural, ONCE INTRA PROCEDURE, Starting on Sat08/06/22 at 1439, Until Sat08/06/22 at 1534, Routine, Intra-op [facility] LR 1000 mL + oxytocin 40 units 40 unit/ 1,000 mL IV Solution 2021-10 19:35: 00 08-06 20:34 :42 No IV Infusion, CONTINUOUS PRN, Starting on Sat08/06/22 at 1435, Until Sat08/06/22 at 1534, Routine, Intra-op [facility] ondansetron (ZOFRAN (PF)) injection 2021-10 19:20: 00 08-06 20:34 :42 No Slow IV Push, ONCE INTRA PROCEDURE, Starting on Sat08/06/22 at 1420, Until Sat08/06/22 at 1534, Routine, Intra-op [facility] lactated ringers IV infusion 2021-10 18:50: 00 08-06 20:34 :42 No IV Infusion, CONTINUOUS PRN, Starting on Sat08/06/22 at 1350, Until Sat08/06/22 at 1534, Routine, Intra-op [facility] lidocaine 2% + epinephrine 1:1000 + fentanyl 50 mcg/mL + sodium bicarb 8.4% 2021-10 18:50: 00 08-06 20:34 :42 No Epidural, CONTINUOUS PRN, Starting on Sat08/06/22 at 1350, Until Sat08/06/22 at 1534, Routine, Intra-op [facility] ceFAZolin in 0.9% sodium chloride (ANCEF) 2 gram/100 mL RTU 2 g 2021-10 18:43: 49 08-06 19:15 :00 No 2000mg 2 g (2,000 mg), IV Piggyback, O.R. HOLDING ONCE, 1 dose, Starting on Sat08/06/22 at 1343, Until Sat08/06/22 at 1415, Administer over 30 Minutes, 100 mL
Reas on for Anti-Infec tive: Surgical Prophylaxi s
Surgi gena Prophylaxi s: HEAD SCORER
Duration of therapy: within 24 hours of surgery [facility] betamethaso ne acet,sod phos (CELESTONE SOLUSPAN) 6 mg/mL injection 12 mg 2021-10 0 13:45: 00 08-06 13:13 :00 No 12mg 12 mg, Intramuscu lar, ONCE, 1 dose, On Sat08/06/22 at 0845, Routine [facility] fentaNYL-ro pivacaine 2 mcg/mL-0.1 % (PF) in NS 200 mL epidural infusion RTU 2021-10 01:59: 00 08-06 20:34 :42 No Epidural, ONCE INTRA PROCEDURE, Starting on Sat08/05/22 at 205, Until Discontinu ed, Routine, Intra-op [facility] lidocaine-e pinephrine (XYLOCAINE W/EPINEPHRI NE) 1.5 %-1:200,000 injection 2021-10 01:51: 00 08-06 20:34 :42 No Epidural, ONCE INTRA PROCEDURE, Starting on Sat08/05/22 at 205, Until Discontinu ed, Routine, Intra-op [facility] oxytocin (PITOCIN) 30 units in NS 500 mL IV infusion 2021-10 0 18:16: 03 08-06 22:42 :26 No 2mU/min at 2-40 mL/hr, IV Infusion, TITRATE, Starting on Sat08/05/22 at 1316, Until Sat08/06/22 at 1742, FLACO [facility] terbutaline (BRETHINE) injection 0.25 mg 2021-10 0 17:20: 55 08-06 22:42 :26 No .25mg 0.25 mg, Subcutaneo us, Q15MIN PRN, Starting on Sat08/05/22 at 1220, Until Sat08/06/22 at 1742, Routine, Tachysysto le with NRFHT [facility] FENTanyl PF (SUBLIMAZE (PF)) injection 100 mcg 2021-10 0 17:20: 27 08-06 22:42 :26 No 100ug 100 mcg, Slow IV Push, Q1HPRN, Starting on Sat08/05/22 at 1220, Until 08/06/22 at 1742, Routine, Pain (scale 4-6), Pain (scale 7-10) [facility] lactated ringers IV infusion 500 mL 2021-10 0-09 17:16: 03 08-06 22:42 :26 No 500mL at 999 mL/hr, 500 mL, IV Infusion, PRN - SEE INSTRUCTIO NS, Starting on Sat08/05/22 at 1216, Until Sat08/06/22 at 1742, Routine [facility] D5W-LR IV infusion 1,000 mL 2021-10 0-09 17:16: 03 08-06 22:42 :26 No 1000mL at 1-125 mL/hr, IV Infusion, TITRATE, Starting on Sat08/05/22 at 1216, Until Sat08/06/22 at 1742, Routine [facility] PNV no.153-FA-o m3-dha-epa- fish ( GUMMIES) 400 mcg-35 mg- 25 mg-5 mg Chew 8-31 00:00: 00 08-05 00:00 :00 No [id number] 2{tbl} Take 2 tablets by mouth daily. [facility] proMETHazin e 25 mg tablet 3- 00:00: 00 08-08 00:00 :00 No [id number] 25mg Take 1 tablet by mouth every 6 (six) hours as needed for Nausea and Vomiting (N/V). [facility] PNV 67-iron ps-folate no.1-dha (VITAFOL ULTRA) 29 mg iron- 1 mg-200 mg Cap 3- 00:00: 00 08-08 00:00 :00 No [id number] 1{each} Take 1 Each by mouth daily. [facility] Immunizations Ordered Immunization Name Filled Immunization Name Date Status Comments Source TDAP 2022-06-13 00:00:00 Completed [facility] TDAP 2022-06-13 00:00:00 Completed [facility] TDAP 2022-06-13 00:00:00 Completed [facility] TDAP 2022-06-13 00:00:00 Completed [facility] TDAP 2022-06-13 00:00:00 Completed [facility] TDAP 2022-06-13 00:00:00 Completed [facility] TDAP 2022-06-13 00:00:00 Completed [facility] TDAP 2022-06-13 00:00:00 Completed [facility] TDAP 2022-06-13 00:00:00 Completed [facility] Td 2020-11-17 00:00:00 Completed [facility] Td 2020-11-17 00:00:00 Completed [facility] Td 2020-11-17 00:00:00 Completed [facility] Td 2020-11-17 00:00:00 Completed [facility] Td 2020-11-17 00:00:00 Completed [facility] Td 2020-11-17 00:00:00 Completed [facility] Td 2020-11-17 00:00:00 Completed [facility] Td 2020-11-17 00:00:00 Completed [facility] Td 2020-11-17 00:00:00 Completed [facility] TD, NOS Unknown Completed [facility] TDAP Unknown Completed [facility] TD, NOS Unknown Completed [facility] TDAP Unknown Completed [facility] TD[facility] NOS Unknown Completed [facility] TD, NOS Unknown Completed [facility] TD, NOS Unknown Completed [facility] TDAP Unknown Completed [facility] Vital Signs Vital Name Observation Time Observation Value Comments S ource Systolic blood pressure 2024-03-11 00:42:00 138 mm[Hg] [place] [facility] Diastolic blood pressure 2024-03-11 00:42:00 94 mm[Hg] [place] [facility] Heart rate 2024-03-11 00:42:00 93 [facility] 2024-03-11 00:42:00 37.28 Sophie [facility] Respiratory rate 2024-03-11 00:42:00 18 /min [facility] Body height 2024-03-11 00:42:00 152.4 cm Univ [facility] Body weight 2024-03-11 00:42:00 91.944 kg [facility] BMI 2024-03-11 00:42:00 39.59 kg/m2 [facility] Oxygen saturation in Arterial blood by Pulse oximetry 2024-03-11 00:42:00 95 /min [facility] Systolic blood pressure 2022-08-27 15:48:00 120 mm[Hg] [facility] Diastolic blood pressure 2022-08-27 15:48:00 84 mm[Hg] [facility] Heart rate 2022-08-27 15:48:00 78 /[facility] Body temperature 2022-08-27 15:48:00 36.28 Sophie [facility] Respiratory rate 2022-08-27 15:48:00 18 /min [facility] Body height 2022-08-27 15:48:00 152.4 cm [facility] Body weight 2022-08-27 15:48:00 93.98 kg [facility] BMI 2022-08-27 15:48:00 40.46 kg/m2 [facility] Systolic blood pressure 2022-08-13 16:27:00 158 mm[Hg] [facility] Diastolic blood pressure 2022-08-13 16:27:00 94 mm[Hg] [facility] Heart rate 2022-08-13 16:27:00 75 /min [facility] Body temperature 2022-08-13 16:27:00 36.44 Sophie [facility] Respiratory rate 2022-08-13 16:27:00 16 /min [facility] Body height 2022-08-13 16:27:00 152.4 cm Univ [facility] Body weight 2022-08-13 16:27:00 99.791 kg Univ [facility] BMI 2022-08-13 16:27:00 42.97 kg/m2 [facility] Systolic blood pressure 2022-08-08 12:41:00 127 mm[Hg] [facility] Diastolic blood pressure 2022-08-08 12:41:00 91 mm[Hg] [facility] Body temperature 2022-08-08 12:41:00 36.67 Sophie [facility] Respiratory rate 2022-08-08 12:41:00 18 /min [facility] Oxygen saturation in Arterial blood by Pulse oximetry 2022-08-08 12:41:00 100 /min [facility] Heart rate 2022-08-08 09:30:00 64 /min [facility] Body height 2022-08-05 17:00:00 152.4 cm [facility] Body weight 2022-08-05 17:00:00 102.604 kg [facility] BMI 2022-08-05 17:00:00 44.18 kg/m2 [facility] Systolic blood pressure 2022-08-06 20:45:00 132 mm[Hg] [facility] Diastolic blood pressure 2022-08-06 20:45:00 77 mm[Hg] [facility] Heart rate 2022-08-06 20:45:00 66 /min [facility] Body temperature 2022-08-06 20:45:00 37 Sophie [facility] Respiratory rate 2022-08-06 20:45:00 16 /min [facility] Oxygen saturation in Arterial blood by Pulse oximetry 2022-08-06 20:45:00 100 /min [facility] Body height 2022-08-05 17:00:00 152.4 cm [facility] Body weight 2022-08-05 17:00:00 102.604 kg [facility] BMI 2022-08-05 17:00:00 44.18 kg/m2 [facility] Respiratory rate 2022-08-06 20:24:00 20 /min [facility] Systolic blood pressure 2022-07-31 16:14:00 121 mm[Hg] [facility] Diastolic blood pressure 2022-07-31 16:14:00 79 mm[Hg] [facility] Heart rate 2022-07-31 16:14:00 76 /min [facility] Body temperature 2022-07-31 16:14:00 36.33 Sophie [facility] Respiratory rate 2022-07-31 16:14:00 18 /min [facility] Body weight 2022-07-31 16:14:00 104.599 kg [facility] BMI 2022-07-31 16:14:00 45.04 kg/m2 [facility] Systolic blood pressure 2022-07-11 13:20:00 126 mm[Hg] [facility] Diastolic blood pressure 2022-07-11 13:20:00 83 mm[Hg] [facility] Heart rate 2022-07-11 13:20:00 91 /min [facility] Body temperature 2022-07-11 13:20:00 36.5 Sophie [facility] Respiratory rate 2022-07-11 13:20:00 18 /min [facility] Body height 2022-07-11 13:20:00 152.4 cm [facility] Body weight 2022-07-11 13:20:00 99.848 kg [facility] BMI 2022-07-11 13:20:00 42.99 kg/m2 [facility] Procedures Procedure Date / Time Performed Performing Clinician Source POCT URINALYSIS 2022-08-27 15:49:00 Jenniffer Cortes [facility] CBC WITH DIFF 2022-08-07 09:07:00 Nancy Guthrie [facility] CBC WITH DIFF 2022-08-07 09:07:00 Nancy Guthrie [facility] VENOUS CORD GAS 2022-08-06 19:56:00 Nancy Guthrie [facility] VENOUS CORD GAS 2022-08-06 19:56:00 Nancy Guthrie [facility] SECTION 2022-08-06 18:50:00 Nancy Guthrie [facility] SECTION 2022-08-06 18:50:00 Nancy Guthrie [facility] CENTRAL NEURAXIAL BLOCK 2022-08-06 02:05:00 Bereket Swann [facility] LACTATE DEHYDROGENASE 2022-08-05 23:55:00 Adum, Kathy Quiroz [facility] LACTATE DEHYDROGENASE 2022-08-05 23:55:00 Adum, Kathy Quiroz [facility] HB ABO GROUPING 2022-08-05 17:45:00 Adum, Kathy Oglesby [facility] RHO (D) IMMUNE GLOBULIN 2022-08-05 17:45:00 Nancy Guthrie [facility] HB ABO GROUPING 2022-08-05 17:45:00 Adum, Kathymirian Oglesby [facility] RHO (D) IMMUNE GLOBULIN 2022-08-05 17:45:00 Nancy Guthrie [facility] SGOT (ASPARTATE AMINO TRANSFER) 2022-08-05 17:44:00 Adum, Kathy Quiroz [facility] [facility] CREATININE 2022-08-05 17:44:00 Adum, Kathy Quiroz [facility] ALANINE AMINO TRANSFERASE(SGPT 2022-08-05 17:44:00 Adum, Kathy Quiroz [facility] URIC ACID 2022-08-05 17:44:00 Adum, Kathy Quiroz [facility] CBC WITH DIFF 2022-08-05 17:44:00 Adum, Kathy Quiroz [facility] HEPATITIS B SURFACE ANTIGEN 2022-08-05 17:44:00 Adum, Kathy Quiroz [facility] ADC OR EDWIN ONLY - RPR 2022-08-05 17:44:00 Adum, Kathy Quiroz [facility] HIV 1/2 AG-AB WITH REFLEX 2022-08-05 17:44:00 Adum, Kathy Quiroz [facility] SGOT (ASPARTATE AMINO TRANSFER) 2022-08-05 17:44:00 Adum, Kathy Quiroz [facility] CREATININE 2022-08-05 17:44:00 Adum, Kathy Quiroz [facility] ALANINE AMINO TRANSFERASE(SGPT 2022-08-05 17:44:00 Adum, Kathy Quiroz [facility] URIC ACID 2022-08-05 17:44:00 [facility] 2022-08-05 17:44:00 [facility]um[facility] ANTIGEN 2022-08-05 17:44:00 Adum, Kathy Quiroz [facility] ADC OR EDWIN ONLY - RPR 2022-08-05 17:44:00 Adum, Kathy Quiroz [facility] HIV 1/2 AG-AB WITH REFLEX 2022-08-05 17:44:00 Adum, Kathy Quiroz [facility] GROUP B STREPTOCOCCUS BY PCR 2022-08-05 17:14:00 Adum, Kathy Quiroz [facility] ADC ONLY - FERN TEST 2022-08-05 17:14:00 Adum, Kathy Quiroz [facility] GROUP B STREPTOCOCCUS BY PCR 2022-08-05 17:14:00 Adum, Kathy Quiroz [facility] ADC ONLY - FERN TEST 2022-08-05 17:14:00 Adum, Kathy Quiroz [facility] ASSIGNMENT OF BENEFITS 2022-08-05 16:18:06 Docto r Unassigned, [place] [facility] POCT URINALYSIS 2022-07-31 16:58:00 Jenniffer Cortes [facility] POCT URINALYSIS 2022-07-11 13:22:00 Jenniffer Cortes [facility] Encounters Start Date/Time End Date/Time Encounter Type Admission Type Attending Clinicians Care Facility Care Department Encounter ID Source 2022-06-10 10:37:40 Outpatient X [facility] [id number] [facility] 2024-03-10 19:46:00 2024-03-10 21:18:00 Emergency X ROLY PURVIS TIMOTHY [facility] [id number] [facility] 2024-03-10 19:46:00 2024-03-10 21:18:00 Emergency Roly Purvis [facility] 1.2.840.114 350.1.13.10 4.2.7.2.686 [id number] [facility] 2022-10-08 09:15:00 2022-10-08 09:15:00 Outpatient R NICOLASLyndsey KRISSY [facility] [id number] [facility] 2022-09-17 13:00:00 2022-09-17 13:00:00 Outpatient R TYLERSTANISLAWPA JENNIFFER [facility] [id number] [facility] 2022-08-27 10:45:00 2022-08-27 11:28:54 Routine Visit Jenniffer Cortes [facility] .2.840.114 350.1.13.10 4.2.7.2.686 [id number] 107 [id number] [facility] 2022-08-27 10:45:00 2022-08-27 11:28:54 Outpatient R JENNIFFER CORTES [facility] [id number] [facility] 2022-08-13 10:00:00 2022-08-13 11:34:05 Outpatient R SEBASTIAN JENNIFFER [facility] [id number] [facility] 2022-08-13 10:00:00 2022-08-13 11:34:05 Nurse Visit Visit, Ang-Rmchp Nurse Jenniffer Cortes [facility] .2.840.114 350.1.13.10 4.2.7.2.686 [id number] [facility] 2022-08-13 11:00:00 2022-08-13 11:00:00 Outpatient R SEBASTIAN JENNIFFER [facility] [id number] [facility] 2022-08-05 11:21:00 2022-08-08 10:45:00 Inpatient NANCY TOPETE [facility] [id number] [facility] 2022-08-05 11:21:00 2022-08-08 10:45:00 Hospital Encounter Kathy Armenta Vien Cam [facility] 1.2.840.114 350.1.13.10 4.2.7.2.686 [id number] [facility] 2022-08-07 14:45:00 2022-08-07 14:45:00 Outpatient R JENNIFFER CORTES [facility] [id number] [facility] 2022-08-06 14:00:00 2022-08-06 15:58:00 Surgery Nancy Guthrie [facility] 1.2.840.114 350.1.13.10 4.2.7.2.686 [id number] [facility] 2022-08-05 20:45:00 2022-08-06 15:34:00 Anesthesia Event Bereket Swann John M [facility] 1.2.840.114 350.1.13.10 4.2.7.2.686 [id number] [facility] 2022-08-06 00:00:00 2022-08-06 00:00:00 Patient Secure Msvandana Jenniffer Cortes [facility] 1.2.840.114 350.1.13.10 4.2.7.2.686 [id number] [facility] 2022-08-05 19:01:23 2022-08-05 19:01:23 Anesthesia Event Bereket Swann [facility] 1.2.840.114 350.1.13.10 4.2.7.2.686 [id number] [facility] 2022-08-05 00:00:00 2022-08-05 00:00:00 Orders Only Doctor Unassigned, [place] [facility] 1.2.840.114 350.1.13.10 4.2.7.2.686 [id number] [facility] 2022-07-31 11:00:00 2022-07-31 11:56:32 Outpatient R JENNIFFER CORTES [facility] [id number] [facility] 2022-07-31 11:00:00 2022-07-31 11:56:32 Routine Visit Jenniffer Cortes [facility] 1.2.840.114 350.1.13.10 4.2.7.2.686 [id number] 107 [id number] [facility] 2022-07-30 10:15:00 2022-07-30 10:15:00 Outpatient R JENNIFFER CORTES [facility] [id number] [facility] 2022-07-27 00:00:00 2022-07-27 00:00:00 Patient Secure Msg Doctor Unassigned, [place] [facility] 1..840.114 350.1.13.10 4.2.7.2.686 [id number] [facility] 2022-07-25 08:15:00 2022-07-25 08:15:00 Outpatient R JENNIFFER CORTES [facility] [id number] [facility] 2022-07-11 08:00:00 2022-07-11 08:15:00 Routine Visit Jenniffer Cortes [facility]ILD [facility] ..840.114 350.1.13.10 4.2.7.2.686 [id number] 107 [id number] [facility] 2022-07-11 08:00:00 2022-07-11 08:00:00 Outpatient R JENNIFFER CORTES [facility] [id number] [facility] 2022-06-27 10:45:00 2022-06-27 12:06:51 Outpatient R JENNIFFER CORTES [facility] [id number] [facility] 2022-06-27 10:45:00 2022-06-27 12:06:51 Routine Visit Jenniffer Cortes [place] [facility] 1.2.840.114 350.1.13.10 4.2.7.2.686 [id number] [facility] 2022-06-13 09:45:00 2022-06-13 10:45:44 Outpatient R TYLERSTANISLAWPA JENNIFFER [facility] [id number] [facility] 2022-06-13 09:45:00 2022-06-13 10:45:44 Routine Visit BebapaJenniffer [facility] 1.2.840.114 350.1.13.10 4.2.7.2.686 [id number] [facility] 2022-06-11 00:00:00 2022-06-11 00:00:00 Telephone Sebastian Jenniffer [place] [facility] 1.2.840.114 350.1.13.10 4.2.7.2.686 [id number] [facility] 2022-06-11 00:00:00 2022-06-11 00:00:00 Patient Secure Msg Jenniffer Cortes [facility] 1.2.840.114 350.1.13.10 4.2.7.2.686 [id number] [facility] 2022-06-09 14:13:00 2022-06-10 10:10:00 Outpatient X BHARTI DUARTE [facility] [id number] [facility] 2022-06-09 14:13:00 2022-06-10 10:10:00 Emergency Asher Leon S Bharti Duarte [facility] 1.2840.114 350.1.13.10 4.2.7.2.686 [id number] [facility] 2022-06-09 00:00:00 2022-06-09 00:00:00 Orders Only Doctor Unassigned, [place] [facility] 1.84.114 350.1.13.10 4.2.7.2.686 [id number] [facility] 2022-05-25 11:15:00 2022-05-25 11:51:18 Client Care Representative Visit 1, [facility] Room KarlMark blanchard [facility] 1.840.114 350.1.13.10 4.2.7.2.686 [id number] [facility] 2022-05-25 11:15:00 2022-05-25 11:15:00 Outpatient P [facility] [id number] [facility] 2022-05-25 11:15:00 2022-05-25 11:15:00 Outpatient P MARK FREED [facility] [id number] [facility] 2022-05-25 00:00:00 2022-05-25 00:00:00 Abstract Jenniffer Cortes [facility] 1.840.114 350.1.13.10 4.2.7.2.686 [id number] [facility] 2022-05-23 10:45:00 2022-05-23 11:21:35 Outpatient R JENNIFFER CORTES [facility] [id number] [facility] 2022-05-23 10:45:00 2022-05-23 11:21:35 Routine Visit Jenniffer Cortes [facility] 1.840.114 350.1.13.10 4.2.7.2.686 [id number] 107 [id number] [facility] 2022-05-03 00:00:00 2022-05-03 00:00:00 Patient Secure Msg Jenniffer Cortes [facility] 1..840.114 350.1.13.10 4.2.7.2.686 [id number] [facility] 2022-04-23 12:45:00 2022-04-23 13:35:43 Outpatient R JENNIFFER CORTES [facility] [id number] [facility] 2022-04-23 12:45:00 2022-04-23 13:35:43 Routine Visit Jenniffer Cortes [facility] 1..840.114 350.1.13.10 4.2.7.2.686 [id number] [facility] 2022-04-19 08:00:00 2022-04-19 08:00:00 Outpatient R JENNIFFER CORTES [facility] [id number] [facility] 2022-04-18 00:00:00 2022-04-18 00:00:00 Abstract Jenniffer Cortes [facility] 1..840.114 350.1.13.10 4.2.7.2.686 [id number] 107 [id number] [facility] 2022-04-13 10:45:00 2022-04-13 12:00:00 Client Care Representative Visit 2, [facility] Us Room Aman Ivaelia [facility] 1.840.114 350.1.13.10 4.2.7.2.686 [id number] [facility] 2022-04-13 10:45:00 2022-04-13 10:45:00 Outpatient P AMAN IVAElia [facility] [id number] [facility] 2022-03-22 08:00:00 2022-03-22 08:50:44 Outpatient R JENNIFFER CORTES [facility] [id number] [facility] 2022-03-22 08:00:00 2022-03-22 08:50:44 Routine Visit Jenniffer Cortes [facility] 1.2.840.114 350.1.13.10 4.2.7.2.686 [id number] 107 [id number] [facility] 2022-02-22 08:00:00 2022-02-22 08:37:51 Outpatient R JENNIFFER CORTES [facility] [id number] [facility] 2022-02-22 08:00:00 2022-02-22 08:37:51 Routine Visit Jenniffer Cortes [facility] 1..840.114 350.1.13.10 4.2.7.2.686 [id number] [facility] 2022-02-21 00:00:00 2022-02-21 00:00:00 Abstract Jenniffer Cortes [facility] 1.2.840.114 350.1.13.10 4.2.7.2.686 [id number] [facility] 2022-02-20 12:15:00 2022-02-20 12:15:00 Outpatient R LINDSAY DO [facility] [id number] [facility] 2022-02-20 12:15:00 2022-02-20 12:15:00 Client Care Representative Visit Lab, EricaSandra Ruvalcaba Emily N [facility] 1..840.114 350.1.13.10 4.2.7.2.686 [id number] [facility] 2022-02-20 11:15:00 2022-02-20 12:00:00 Client Care Representative Visit 1, [facility] Room Sandra Restrepo [facility] 1.840.114 350.1.13.10 4.2.7.2.686 [id number] [facility] 2022-02-09 00:00:00 2022-02-09 00:00:00 Abstract Jenniffer Cortes [facility] 1.840.114 350.1.13.10 4.2.7.2.686 [id number] 107 [id number] [facility] 2022-02-08 11:00:00 2022-02-08 11:00:00 Outpatient P [facility] [id number] [facility] 2022-02-08 11:00:00 2022-02-08 11:00:00 Outpatient P [facility] [id number] [facility] 2022-02-06 12:00:00 2022-02-06 12:00:00 Outpatient P BIBIANA DAVIES [facility] [id number] [facility] 2022-02-06 12:00:00 2022-02-06 12:00:00 Client Care Representative Visit Lab, [facility] Bibiana Davies [facility] 1.84.114 350.1.13.10 4.2.7.2.686 [id number] [facility] 2022-02-06 11:15:00 2022-02-06 11:32:16 Client Care Representative Visit 1, [facility] Us Room Shaunna Watson [facility] 1.84.114 350.1.13.10 4.2.7.2.686 [id number] [facility] 2022-01-25 08:00:00 2022-01-25 08:42:50 Outpatient R JENNIFFER CORTES [facility] [id number] [facility] 2022-01-25 08:00:00 2022-01-25 08:42:50 Routine Visit Jenniffer Cortes [facility] 1.840.114 350.1.13.10 4.2.7.2.686 [id number] [facility] 2022-01-25 08:00:00 2022-01-25 08:00:00 Outpatient R JENNIFFER CORTES [facility] [id number] [facility] 2022-01-08 00:00:00 2022-01-08 00:00:00 Telephone Jenniffer Cortes [facility] 1.0.114 350.1.13.10 4.2.7.2.686 [id number] [facility] 2022-01-08 00:00:00 2022-01-08 00:00:00 Abstract Jenniffer Cortes [facility] 1.0.114 350.1.13.10 4.2.7.2.686 [id number] 107 [id number] [facility] 2022-01-08 00:00:00 2022-01-08 00:00:00 Orders Only Doctor Unassigned, [place] [facility] ..114 350.1.13.10 4.2.7.2.686 [id number] [facility] 2021-12-29 00:00:00 2021-12-29 00:00:00 Patient Secure Msg Jenniffer Cortes [facility] 1.840.114 350.1.13.10 4.2.7.2.686 [id number] [facility] 2021-12-29 00:00:00 2021-12-29 00:00:00 Telephone Jenniffer Cortes [place] [facility] 1.840.114 350.1.13.10 4.2.7.2.686 [id number] [facility] 2021-12-28 13:30:00 2021-12-28 15:09:24 Outpatient R JENNIFFER CORTES [facility] [id number] [facility] 2021-12-28 13:30:00 2021-12-28 15:09:24 Initial Visit Tylertamie Jenniffer [place] [facility] 1.840.114 350.1.13.10 4.2.7.2.686 [id number] [facility] 2021-12-28 13:00:00 2021-12-28 14:12:05 Outpatient R JENNIFFER CORTES [facility] [id number] [facility] 2021-12-28 00:00:00 2021-12-28 00:00:00 Orders Only Doctor Unassigned, [place] [facility] 1.840.114 350.1.13.10 4.2.7.2.686 [id number] [facility] 2020-11-28 15:00:00 2020-11-28 16:30:00 Emergency Alessio Lee [facility] 1.840.114 350.1.13.10 4.2.7.2.686 [id number] [facility] 2020-11-28 15:00:00 2020-11-28 15:00:00 Emergency Alessio HAMILTON [facility] [id number] [facility] 2020-11-17 21:47:00 2020-11-17 22:46:00 Emergency Marsha Do Tanya S [facility] 1.840.114 350.1.13.10 4.2.7.2.686 [id number] [facility] 2020-11-17 21:36:00 2020-11-17 21:36:00 Emergency X [facility] [id number] [facility] Results Test Description Test Time Test Comments Results Result Co mments Source [facility] (D) IMMUNE [id number] 00:55:21* Test Item Value Reference Range Interpretation Comme nts RHIG CANDIDATE? (test code = 5055) No- see comment Patient is not a candidate for RhIg- Patient is Rh Positive.Performed at [facility] Laboratory Services - [facility] Blood [address] [place], [place] [id number] Free: [phone] No. [id number] [facility] (D) IMMUNE [id number] 00:55:21* Test Item Value Reference Range Interpretation Comme nts RHIG CANDIDATE? (test code = 5055) No- see comment Patient is not a candidate for RhIg- Patient is Rh Positive.Performed at [facility] Laboratory [facility] - [facility] Blood [address] [place], [place] [id number] Free: [phone] No. [id number] [facility] [id number] 02:29:24* Test Item Value Reference Range Interpretation Comme nts LDH (test code = 2837206420) 153 U/L 120-246 Lab Interpretation (test cod e = 84380-9) Normal [facility] [id number] 02:29:24* Test Item Value Reference Range Interpretation Comme nts LDH (test code = 9181788361) 153 U/L 120-246 Lab Interpretation (test cod e = 56435-8) Normal [facility] OR EDWIN ONLY - [id number] 01:49:50* Test Item Value Reference Range Interpretation Comme nts RPR (Qualitative) (test code = 10283-3) Nonreactive Nonreactive Lab Interpretation (test cod e = 01901-5) Normal [facility] OR EDWIN ONLY - [id number] 01:49:50* Test Item Value Reference Range Interpretation Comme nts RPR (Qualitative) (test code = 59427-1) Nonreactive Nonreactive Lab Interpretation (test cod e = 43280-2) Normal [facility] [id number] 00:28:19* Test Item Value Reference Range Interpretation Comme nts URIC ACID (test code = 8300928477) 3.4 mg/dL 2.9-6 Lab Interpretation (test cod e = 98818-6) Normal [facility] TRANSFERASE([id number] 00:28:19* Test Item Value Reference Range Interpretation Comme nts ALTv (test code = 1742-6) 15 U/L 5-35 Lab Interpretation (test cod e = 31714-0) [facility]06 00:28:19* Test Item Value Reference Range Interpretation Comme nts AST(SGOT) (test code = 1830379260) 28 U/L 13-40 Lab Interpretation (test cod e = 91498-3) Normal [facility]22[facility]10 00:28:19* Test Item Value Reference Range Interpretation Comme nts CREATININE (test code = 1109433297) 0.52 mg/dL 0.5-1.04 eGFR (test code = 2670764851) mL/min/1.73m2 NATHANIEL (test code = NATHANIEL) Association of [...] or urine or abnormalities in imaging tests). [facility] [id number] 00:28:19* Test Item Value Reference Range Interpretation Comme [facility] URIC ACID (test code = 2006771402) 3.4 mg/dL 2.9-6 Lab Interpretation (test cod e = 28258-2) Normal [facility] TRANSFERASE([id number] 00:28:19* Test Item Value Reference Range Interpretation Comme [facility] ALTv (test code = 1742-6) 15 U/L 5-35 Lab Interpretation (test cod e = 11809-8) Normal [facility]ASPARTATE AMINO TRANSFER)2022-08-06 00:28:19* Test Item Value Reference Range Interpretation Comme [facility] AST(SGOT) (test code = 0755621243) 28 U/L 13-40 Lab Interpretation (test cod e = 61499-7) Normal [facility]2022-[facility]-10 00:28:19* Test Item Value Reference Range Interpretation Comme [facility] CREATININE (test code = 9242461439) 0.52 mg/dL 0.5-1.04 eGFR (test code = 2798491618) mL/min/1.73m2 NATHANIEL (test code = NATHANIEL) Association of [...] or urine or abnormalities in imaging tests). [facility] B Surface [id number] 22:38:34 * Test Item Value Reference Range Interpretation Comme nts HBsAg Semi-Quantitative (siva t code = 5195-3) Negative Negative [facility] B Surface [id number] 22:38:34 * Test Item Value Reference Range Interpretation Comme nts HBsAg Semi-Quantitative (siva t code = 5195-3) Negative Negative [facility] Screen - ONCE [id number] 20:34:51 * Test Item Value Reference Range Interpretation Comme nts ABO & RH (test code = 20) O Positive Performed at [facility] Blood [address] [place] [address] Free: [phone] No. [id number] IAT (test code = 1185) Negative Performed at [facility] Blood [address] [place], [place] [id number] Free: [phone] No. [id number] [facility] Screen - ONCE [id number] 20:34:51 * Test Item Value Reference Range Interpretation Comme nts ABO & RH (test code = 20) O Positive Performed at [facility] Blood [address] [place] [id number] Free: [phone] No. [id number] IAT (test code = 1185) Negative Performed at [facility] Blood [id number] [id number] Free: [phone] No. [id number] [facility] 1/2 AG-AB WITH [id number] 19:54:48* Test Item Value Reference Range Interpretation Comme nts HIV Semi-quantitative (test code = 22476-5) Negative Negative NATHANIEL (test code = NATHANIEL) Non-reactive for HIV-1 antigen and HIV-1/HIV-2 antibodies. ?No laboratory evidence of HIV infection. ?Repeat in 2-4 weeks if acute HIV infection is suspected. [facility] 1/2 AG-AB WITH [id number] 19:54:48* Test Item Value Reference Range Interpretation Comme [facility] HIV Semi-quantitative (test code = 13344-8) Negative Negative NATHANIEL (test code = NATHANIEL) Non-reactive for HIV-1 antigen and HIV-1/HIV-2 antibodies. ?No laboratory evidence of HIV infection. ?Repeat in 2-4 weeks if acute HIV infection is suspected. [facility] with [id number] 18:14:27* Test Item Value Reference Range Interpretation Comme nts WBC (test code = 6690-2) See_Comment [Automated messa ge] The system which generated this result transmitted reference range: 4.30 - 11.10 10*3/?L. The reference range was not used to interpret this result as normal/abnormal. RBC (test code = 789-8) See_Comment [Automated messa ge] The system which generated this result transmitted reference range: 3.93 - 5.25 10*6/?L. The reference range was not used to interpret this result as normal/abnormal. HGB (test code = 718-7) 9.9 g/dL 11.6-15 L HCT (test code = 4544-3) 31.0 % 35.7-45.2 L MCV (test code = 787-2) 72.8 fL 80.6-95.5 L MCH (test code = 785-6) 23.2 pg 25.9-32.8 L MCHC (test code = 786-4) 31.9 g/dL 31.6-35.1 RDW-SD (test code = 93260-5) 39.1 fL 39-49.9 RDW-CV (test code = 788-0) 14.9 % 12-15.5 PLT (test code = 777-3) See_Comment H [Automated messa ge] The system which generated this result transmitted reference range: 166 - 358 10*3/?L. The reference range was not used to interpret this result as normal/abnormal. MPV (test code = 08539-1) 9.6 fL 9.5-12.9 NRBC/100 WBC (test code = 9018817597) See_Comment [Automated [employer] ssage] The system which generated this result transmitted reference range: 0.0 - 10.0 /100 WBCs. The reference range was not used to interpret this result as normal/abnormal. NRBC x10^3 (test code = 9542687521) See_Comment [Automated messa ge] The system which generated this result transmitted reference range: 10*3/?L. The reference range was not used to interpret this result as normal/abnormal. GRAN MAT (NEUT) % (test code = 770-8) 75.8 % IMM GRAN % (test code = 4111219516) 0.40 % LYMPH % (test code = 736-9) 18.0 % MONO % (test code = 5905-5) 5.1 % EOS % (test code = 713-8) 0.3 % BASO % (test code = 706-2) 0.4 % GRAN MAT x10^3(ANC) (test code = 7046025248) 7.67 10*3/uL 1.88-7.09 H IMM GRAN x10^3 (test code = 7369601021) 0.04 10*3/uL 0-0.06 LYMPH x10^3 (test code = 731-0) 1.82 10*3/uL 1.32-3.29 MONO x10^3 (test code = 742-7) 0.52 10*3/uL 0.33-0.92 EOS x10^3 (test code = 711-2) 0.03 10*3/uL 0.03-0.39 BASO x10^3 (test code = 704-7) 0.04 10*3/uL 0.01-0.07 Lab Interpretation (test code = 95273-2) Abnormal [facility] with [id number] 18:14:27* Test Item Value Reference Range Interpretation Comme nts WBC (test code = 6690-2) See_Comment [Automated messa ge] The system which generated this result transmitted reference range: 4.30 - 11.10 10*3/?L. The reference range was not used to interpret this result as normal/abnormal. RBC (test code = 789-8) See_Comment [Automated messa ge] The system which generated this result transmitted reference range: 3.93 - 5.25 10*6/?L. The reference range was not used to interpret this result as normal/abnormal. HGB (test code = 718-7) 9.9 g/dL 11.6-15 L HCT (test code = 4544-3) 31.0 % 35.7-45.2 L MCV (test code = 787-2) 72.8 fL 80.6-95.5 L MCH (test code = 785-6) 23.2 pg 25.9-32.8 L MCHC (test code = 786-4) 31.9 g/dL 31.6-35.1 RDW-SD (test code = 83869-0) 39.1 fL 39-49.9 RDW-CV (test code = 788-0) 14.9 % 12-15.5 PLT (test code = 777-3) See_Comment H [Automated messa ge] The system which generated this result transmitted reference range: 166 - 358 10*3/?L. The reference range was not used to interpret this result as normal/abnormal. MPV (test code = 35874-4) 9.6 fL 9.5-12.9 NRBC/100 WBC (test code = 1973975110) See_Comment [Automated me ssage] The system which generated this result transmitted reference range: 0.0 - 10.0 /100 WBCs. The reference range was not used to interpret this result as normal/abnormal. NRBC x10^3 (test code = 5335917574) See_Comment [Automated messa ge] The system which generated this result transmitted reference range: 10*3/?L. The reference range was not used to interpret this result as normal/abnormal. GRAN MAT (NEUT) % (test code = 770-8) 75.8 % IMM GRAN % (test code = 8900601068) 0.40 % LYMPH % (test code = 736-9) 18.0 % MONO % (test code = 5905-5) 5.1 % EOS % (test code = 713-8) 0.3 % BASO % (test code = 706-2) 0.4 % GRAN MAT x10^3(ANC) (test code = 1338589334) 7.67 10*3/uL 1.88-7.09 H IMM GRAN x10^3 (test code = 9755905291) 0.04 10*3/uL 0-0.06 LYMPH x10^3 (test code = 731-0) 1.82 10*3/uL 1.32-3.29 MONO x10^3 (test code = 742-7) 0.52 10*3/uL 0.33-0.92 EOS x10^3 (test code = 711-2) 0.03 10*3/uL 0.03-0.39 BASO x10^3 (test code = 704-7) 0.04 10*3/uL 0.01-0.07 Lab Interpretation (test code = 83324-1) Abnormal [facility] URINALYSIS W SPECIFIC [id number] 16:58:00* Test Item Value Reference Range Interpretation Comme nts POCT U SP GRAV (test code = 3255) . 1.005-1.025 POCT PH U (test code = 3254) . 5-8 POCT U LEUK EST (test code = 3263) . Negative - N egative POCT U NIT (test code = 3262) . Negative - Negati ve POCT U PROT (test code = 3259) 2+ Negative - Negat jalen POCT U GLU (test code = 3256) 1+ Negative - Negati ve POCT U KETONE (test code = 3258) . Negative - Neg ative POCT U UROBILI (test code = 3260) . 0.2-1 POCT U BILI (test code = 3261) . Negative - Negat jalen POCT U BLD (test code = 3257) . Negative - Negati ve POCT U COLOR (test code = 3266) . POCT U APPEAR (test code = 3267) [facility] [id number] 13:23:00* Test Item Value Reference Range Interpretation Comme nts POCT U SP GRAV (test code = 3255) . 1.005-1.025 POCT PH U (test code = 3254) . 5-8 POCT U LEUK EST (test code = 3263) . Negative - N egative POCT U NIT (test code = 3262) . Negative - Negati ve POCT U PROT (test code = 3259) 1+ Negative - Negat jalen POCT U GLU (test code = 3256) Neg Negative - Negati ve POCT U KETONE (test code = 3258) . Negative - Neg ative POCT U UROBILI (test code = 3260) . 0.2-1 POCT U BILI (test code = 3261) . Negative - Negat jalen POCT U BLD (test code = 3257) . Negative - Negati ve POCT U COLOR (test code = 3266) . POCT U APPEAR (test code = 3267) [facility] Notes Date/Time Note Provider Source 2024-03-10 21:06:23 Awake, alert oriented X4, respiratory even and unlabored,skin w/d color appropriate for race, moves all ext well, pt encouraged to follow up with pcp and or return as needed Pt given printed and verbal discharge instructions regarding Closed Fracture of tooth , patient verbralized understanding and signature obtained, patient denies any other concerns. Prescriptions provided Discussed antibiotic therapy and to take until all completed unless adverse reaction occurs - if occurs, discontinue medication and follow up with pcp/seek medical attention Advised to seek medical attention for new/prolonged/worsening of symptoms, No adverse reaction to meds given in ER noted upon discharge Pt ambulated to the [facility] with steady gait T [facility] 2024-03-10 19:45:38 Pt given urine cup and placed in the lobby, pt advice to notify nurse with any other concerns or if symptoms worsen. [facility] 2024-03-10 19:42:06 C/O left upper tooth pain and facial swelling after falling on Saturday and cracking a tooth. [facility] Tabby Nath RN [facility]"
[2024-06-24] MEDS ORDERED: HYDROCODONE/APAP 7.5/325 MG TAB ONE (23:03)
[2024-06-25 00:36] LABS: Specific Gravity > 1.030 (1.005-1.030)
[2024-06-25 00:52] LABS: Specific Gravity > 1.030 (1.005-1.030); Urine Bacteria 20-50 /HPF (<20); Urine Bilirubin NEGATIVE (Negative); Urine Blood Negative (Negative); Urine Clarity Extremely Turbid (Clear); Urine Color Yellow (Yellow); Urine Culture Reflex Order NOT NEEDED; Urine Glucose NEGATIVE (Negative); Urine Ketones 1+ (Negative); Urine Micro Reflex YN NO BILL MICROSCOPIC; Urine Mucus 4+ /HPF (None Seen); Urine Nitrite NEGATIVE (Negative); Urine Protein 1+ (Negative); Urine RBC None Seen /HPF (None Seen); Urine Urobilinogen Normal (Normal)
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
[2024-06-25] MEDS ORDERED: KETOROLAC 30 MG/ML INJ ONE (01:53)
[2024-06-25] MEDS ORDERED: CYCLOBENZAPRINE 10 MG TAB ONE (01:53)
[2024-06-25 02:10] VITALS: BP 136/79; TEMP 97.7; O2SAT 100
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
== END 2024-06-25 02:06 | disposition home or self-care (01) ==
LOC: ER 21:36
PROC: 0HQ1XZZ Repair Face Skin, External Approach (ICD-10-PCS; principal; 2024-06-25)
DX: S01.511A Laceration without foreign body of lip, initial encounter (principal); S01.512A Laceration without foreign body of oral cavity, initial encounter; S01.01XA Laceration without foreign body of scalp, initial encounter; N39.0 Urinary tract infection, site not specified; S32.029A Unspecified fracture of second lumbar vertebra, initial encounter for closed fracture; Y04.8XXA Assault by other bodily force, initial encounter
CPT/HCPCS: 70450; 71250; 72125; 81001; 81025; 96372; 99284